=== PATIENT | female | born 1975 | race Caucasian/White ===

== ENCOUNTER 2016-09-19 12:17 | Emergency (ER) | payer OTHER ==
[~2016-09-19 12:17] MED LIST: ACET-704 PO; ALBU8.5H3 INH; CEPH-263 PO; CLON1TAB PO; ESOM40CA PO; FLUO40CA9 PO; HYDR-971 PO; MIRT15TA PO; POTA10CA PO; PRED50TA PO; PROM25AM6 IJ; PROM25TA10 PO; WARF5TAB7 PO
[2016-09-19] MEDS ORDERED: IV NORMAL SALINE 1,000ML 1,000 ML IV ONE (13:00)
[2016-09-19] MEDS ORDERED: ONDANSETRON PF 4 MG/2 ML VIAL. IV ONE (13:00)
[2016-09-19] MEDS ORDERED: FENTANYL PF 100 MCG/2 ML VIAL. IV ONE (13:00)
[2016-09-19] MEDS ORDERED: IOHEXOL 300 MG/ML 75 ML VIAL. IV ONE (13:00)
[2016-09-19 13:10] LABS: HEMOGLOBIN ISTAT 11.9 gm/dL; POTASSIUM ISTAT 3.6 mmol/L (3.5-5.0)
[2016-09-19 13:26] LABS: ALBUMIN 3.6 g/dL (3.4-5.0); DIRECT BILIRUBIN 0.1 mg/dL (0.0-0.2); TOTAL BILIRUBIN 0.2 mg/dL (0.2-1.0); TOTAL PROTEIN 7.6 g/dL (6.4-8.2)
--- NOTE | 2016-09-19 13:29 | RAD ---
CT of the abdomen and pelvis with contrast, 09/19/2016: History: Right-sided pain, worsening diarrhea Multidetector CT imaging was performed following an IV bolus injection of iodinated contrast material. No hepatic abnormality is detected. The gallbladder is somewhat contracted. No dense gallstones are seen. No pancreatic abnormality is detected. The spleen is of normal size. No renal abnormality is identified. The abdominal aorta is of normal caliber. No abdominal or pelvic adenopathy is seen. The uterus is unremarkable. Several small cysts are present in the left ovary. Pelvic surgical clips are probably secondary to a previous tubal ligation. The bowel loops are not dilated. A portion of the appendix is visualized and it is unremarkable. No pericecal inflammatory process is seen. There appears to be a small hiatal hernia. No free fluid or free air is evident in the abdomen or pelvis. IMPRESSION: No acute abdominal or pelvic abnormality is detected. PQRS Compliance Statement: One or more of the following individualized dose reduction techniques were utilized for this examination: 1. Automated exposure control 2. Adjustment of the mA and/or kV according to patient size 3. Use of iterative reconstruction technique
[2016-09-19 13:39] LABS: BILIRUBIN,URINE NEG (NEG); CLARITY,URINE CLEAR; COLOR,URINE YELLOW; GLUCOSE,URINE NEG (NEG); NITRITE,URINE NEG (NEG); UROBILINOGEN,URINE 0.2 mg/dL (0.2 mg/dL)
[2016-09-19 13:40] LABS: BACTERIA,URINE 0 /HPF (0-FEW); SQUAMOUS EPITHELIAL CELL,UR OCC /LPF; WBC,URINE 0 /HPF (0-4)
--- NOTE | 2016-09-19 13:46 | ED.ADGEN ---
Past History Past Medical History: Depression, GERD, Other Past Surgical History: , Tonsillectomy, Other Alcohol Use: None Drug Use: None Adult General Chief Complaint Chief Complaint abdominal pain HPI HPI Patient is a 40 year old female who presents with R side abdominal pain. Pt's had diarrhea 4 times today, watery in nature, reports mild nausea but no vomiting. Denies fevers. Pain started this morning as "light" pain but then intensified throughout the day and became more sharp. It worsens with movement , twisting, bending. Improves with standing and laying flat. Tubal ligation but denies other abdominal surgeries. Denies dysuria or increased urinary frequency. Review of Systems Review of Systems Constitutional: Denies fever or chills [] Eyes: Denies change in visual acuity, redness, or eye pain [] HENT: Denies nasal congestion or sore throat [] Respiratory: Denies cough or shortness of breath [] Cardiovascular: denies chest pain GI: per hpi : Denies dysuria or hematuria [] Musculoskeletal: Denies back pain or joint pain [] Integument: Denies rash or skin lesions [] Neurologic: Denies headache, focal weakness or sensory changes [] Current Medications Current Medications Current Medications Medications (Trade) Dose Ordered Sig/Jerrod Start Time Stop Time Status Last Admin Dose Admin Diazepam (Valium) 5 mg 1X ONCE 09/19/16 14:00 09/19/16 14:01 DC 09/19/16 13:56 5 MG Fentanyl Citrate (Fentanyl 2ml Vial) 50 mcg 1X ONCE 09/19/16 13:00 09/19/16 13:01 DC 09/19/16 13:26 50 MCG Iohexol (Omnipaque 300 Mg/ml) 75 ml 1X ONCE 09/19/16 13:00 09/19/16 13:01 DC 09/19/16 13:11 75 ML Ketorolac Tromethamine (Toradol) 30 mg 1X ONCE 09/19/16 14:00 09/19/16 14:01 DC 09/19/16 13:57 30 MG Ondansetron HCl 4 mg 4 mg 1X ONCE 09/19/16 13:00 09/19/16 13:01 DC 09/19/16 13:24 4 MG Sodium Chloride (Iv Sodium Chloride 0.9% 1,000ml) 1,000 ml @ 1,000 mls/hr 1X ONCE 09/19/16 13:00 09/19/16 13:59 DC 09/19/16 13:23 1,000 MLS/HR Allergies Allergies Allergies Coded Allergies Type Severity Reaction Last Updated Verified doxycycline Allergy Unknown VOMITING 06/23/15 No Physical Exam Physical Exam Constitutional: Well developed, well nourished, holding her right side attempting not to bend or sit, non-toxic appearance. smiling HENT: Normocephalic, atraumatic, bilateral external ears normal, oropharynx moist, no oral exudates, nose normal. [] Eyes: PERRLA, EOMI, conjunctiva normal, no discharge. [] Neck: Normal range of motion, no tenderness, supple, no stridor. [] Cardiovascular:Heart rate regular with regular rhythm, no murmur [] Lungs & Thorax: Bilateral breath sounds clear to auscultation , no wheeze, crackles or rhonchi Abdomen: Bowel sounds normal, soft, generalized ttp along R abdomen without bruising or ecchymosis, neg mcburneys, neg murphys Skin: Warm, dry, no erythema, no rash. [] Back: No tenderness, no CVA tenderness. [] Extremities: No tenderness, no cyanosis, no clubbing, ROM intact, no edema. [] Neurologic: Alert and oriented X 3, normal motor function, normal sensory function, no focal deficits noted. [] Psychologic: Affect normal, judgement normal, mood normal. [] Current Patient Data Vital Signs Vital Signs Date Time Temp Pulse Resp B/P Pulse Ox O2 Delivery O2 Flow Rate FiO2 09/19/16 14:01 69 16 148/81 97 Room Air 09/19/16 12:17 98.1 Lab Results Laboratory Tests Test 09/19/16 12:48 09/19/16 12:58 09/19/16 13:06 09/19/16 13:07 Urine Collection Type Unknown Urine Color Yellow Urine Clarity Clear Urine pH 6.0 Urine Specific [place] 1.010 Urine Protein Neg (NEG-TRACE) Urine Glucose (UA) Negmg/dL (NEG) Urine Ketones (Stick) Negmg/dL (NEG) Urine Blood Trace (NEG) Urine Nitrite Neg (NEG) Urine Bilirubin Neg (NEG) Urine Urobilinogen Dipstick 0.2mg/dL (0.2 mg/dL) Urine Leukocyte Esterase Neg (NEG) Urine RBC 1-2/HPF (0-2) Urine WBC 0/HPF (0-4) Urine Squamous Epithelial Cells Occ/LPF Urine Bacteria 0/HPF (0-FEW) Prothrombin Time 28.5SEC (9.4-11.4) H Prothrombin Time INR 2.8 (0.9-1.1) H PTT 34SEC (23-33) H Total Bilirubin 0.2mg/dL (0.2-1.0) Direct Bilirubin 0.1mg/dL (0.0-0.2) Aspartate Amino Transferase (AST) 26U/L (15-37) Alanine Aminotransferase (ALT) 28U/L (14-59) Alkaline Phosphatase 90U/L (46-116) Total Protein 7.6g/dL (6.4-8.2) Albumin 3.6g/dL (3.4-5.0) Lipase 163U/L (73-393) POC Urine HCG, Qualitative hcg negative (Negative) POC Hemoglobin 11.9gm/dL POC Hematocrit 35% POC Sodium 141mmol/L (135-145) POC Potassium 3.6mmol/L (3.5-5.0) POC Chloride 106mmol/L (98-110) POC Total CO2 22mmol/L (23-32) L Anion Gap 18mmol/L (6-14) H POC Blood Urea Nitrogen 10mg/dL (8-26) POC Creatinine 0.6mg/dL (0.5-1.4) Glucose Level 120mg/dL (60-99) H POC Ionized Calcium (Дмитрий) 1.16mmol/L (1.13-1.32) EKG EKG [] Radiology/Procedures Radiology/Procedures CT abd/pelvis: IMPRESSION: No acute abdominal or pelvic abnormality is detected. Course & Med Decision Making Course & Med Decision Making Pertinent Labs and Imaging studies reviewed. (See chart for details) Pt given IV fentanyl, zofran and NS bolus. Pain not relieved, labs and CT unremarkable. Pt given IV Torodol and valium, and pt's pain significantly resolved. Explained results and strict return precautions. Likely abdominal wall pain, could be related to diarrhea. No free fluid on CT. Pt dc'd with RX for norco and flexeril. Final Impression Final Impression abdominal pain diarrhea Problems: Dragon Disclaimer Dragon Disclaimer This electronic medical record was generated, in whole or in part, using a voice recognition dictation system. EBONY RENDON MD Sep 19, 2016 13:46
[2016-09-19] MEDS ORDERED: KETOROLAC 30 MG/ML VIAL. IV ONE (14:00)
[2016-09-19] MEDS ORDERED: DIAZEPAM 10 MG/2 ML DISP.SYRIN. IV ONE (14:00)
[2016-09-19] MEDS ORDERED: HYDR-971 PO (14:13)
[2016-09-19] MEDS ORDERED: IBUP600T16 PO (14:13)
[2016-09-19] MEDS ORDERED: CYCL5TAB PO (14:13)
[2016-09-19 14:20] VITALS: BP 138/81
== END 2016-09-19 14:20 | disposition home or self-care (01) ==
LOC: ER 12:17
DX: R10.9 Unspecified abdominal pain (principal); R19.7 Diarrhea, unspecified; R11.0 Nausea; K21.9 Gastro-esophageal reflux disease without esophagitis; F32.9 Major depressive disorder, single episode, unspecified; Z88.1 Allergy status to other antibiotic agents
CPT/HCPCS: 36415; 74177; 80047; 80076; 81001; 83690; 84703; 85610; 85730; 96361; 96374; 96375; 99285; J1885; J2405; J3010; Q9967; 81025; J7030

== ENCOUNTER 2017-03-19 17:42 | Emergency (ER) | payer OTHER ==
[~2017-03-19 17:42] MED LIST changes: -ALBU8.5H3 INH; +ALBU8.5H8 INH; +CYCL5TAB PO; +IBUP600T16 PO
[2017-03-19 19:00] LABS: BASO % 1 % (0-3); EOS # 0.2 x10^3/uL (0.0-0.7); EOS % 3 % (0-3); HEMATOCRIT 35.2 % (36.0-47.0); HEMOGLOBIN 12.6 g/dL (12.0-15.5); LYMPH # 2.6 x10^3/uL (1.0-4.8); LYMPH % 35 % (24-48); MEAN CORPUSCULAR HEMOGLOBIN 31 pg (25-35); MEAN CORPUSCULAR HGB CONC 36 g/dL (31-37); MEAN CORPUSCULAR VOLUME 87 fL (79-100); MONO # 0.5 x10^3/uL (0.0-1.1); MONO % 7 % (0-9); NEUT # 4.1 x10^3uL (1.8-7.7); NEUT % 55 % (31-73); PLATELET COUNT 375 x10^3/uL (140-400); RED BLOOD COUNT 4.04 x10^6/uL (3.50-5.40); RED CELL DISTRIBUTION WIDTH 14.3 % (11.5-14.5); WHITE BLOOD COUNT 7.5 x10^3/uL (4.0-11.0)
[2017-03-19] MEDS ORDERED: ONDANSETRON PF 4 MG/2 ML VIAL. IV ONE ×2 (19:00→20:45)
[2017-03-19 19:07] LABS: ALBUMIN 3.7 g/dL (3.4-5.0); ALBUMIN/GLOBULIN RATIO 1.1 (1.0-1.7); CALCIUM 8.5 mg/dL (8.5-10.1); GFR 61.4; POTASSIUM 3.4 mmol/L (3.5-5.1); TOTAL BILIRUBIN 0.2 mg/dL (0.2-1.0); TOTAL PROTEIN 7.1 g/dL (6.4-8.2)
[2017-03-19] MEDS ORDERED: IOHEXOL 300 MG/ML 75 ML VIAL. IV ONE (20:45)
--- NOTE | 2017-03-19 21:30 | RAD ---
CT abdomen and pelvis with contrast History: Right-sided abdominal pain, right inguinal hernia repair 02/26/2017 Technique: After the administration of intravenous contrast, CT imaging was performed of the abdomen and pelvis. No oral contrast was given as per request. Multiplanar images are reviewed. Exposure: One or more of the following individualized dose reduction techniques were utilized for this examination: 1. Automated exposure control 2. Adjustment of the mA and/or kV according to patient size 3. Use of iterative reconstruction technique. Contrast: 75 cc Omnipaque 300 Comparison: September 19, 2016 Findings: There is no significant abnormality of the visualized lung bases. There is again small hiatal hernia. There is no significant abnormality of the liver, spleen, pancreas, adrenal glands. Both kidneys enhance without hydronephrosis. Gallbladder is present without obvious intraluminal abnormality by CT. Accurate evaluation of bowel is limited without oral contrast. There is no significant inflammatory change adjacent to the bowel. There is no evidence of bowel obstruction, free fluid, or free air. There again has been bilateral tubal ligation. There is nonspecific fluid collection superficial to the right inguinal canal, no recurrent hernia identified. Fluid collection measures approximately 6.3 cm transverse by 1.7 cm AP by 3.8 cm cc, internal density measurements 17 Hounsfield units. Appendix is not clearly identified if still present. Impression: 1. There is a nonspecific fluid collection superficial to the right inguinal canal of uncertain sterility, could be due to seroma or liquefied hematoma unless clinical suspicion for abscess. No recurrent hernia is demonstrated in this region. 2. There is a small hiatal hernia. Electronically signed by: Franco Babb MD (03/19/2017 9:27 PM) [facility]
[2017-03-19 22:03] VITALS: BP 132/81
[2017-03-19] MEDS ORDERED: HYDROcodone/APAP 5/325MG 1 TAB TABLET PO ONE (22:30)
--- NOTE | 2017-03-20 04:38 | ED.ADGEN ---
Past History Past Medical History: Depression, GERD, Other Past Surgical History: , Tonsillectomy, Other Alcohol Use: None Drug Use: None Adult General Chief Complaint Chief Complaint Periumbilical pain HPI HPI Patient is a or-year-old female with Street of periumbilical hernia repair 10 months ago and right inguinal area repair 3 weeks ago presents with acute onset sharp, right periumbilical pain while seated. Pain is described as moderate severe worse with palpation and movement. Patient denies twisting her lifting proceeding pain episode. Denies nausea vomiting, diarrhea. No palpable normal wall defect or prolapse turning on exam. Fever chills or sweats. No other symptoms or complaints.[] Review of Systems Review of Systems Review symptoms as per history of present illness. All other review symptoms are negative.[] Current Medications Current Medications Current Medications Medications (Trade) Dose Ordered Sig/Jerrod Start Time Stop Time Status Last Admin Dose Admin Acetaminophen/ Hydrocodone Bitart (Lortab 5/325) 1 tab 1X ONCE 03/19/17 22:30 03/19/17 22:30 DC 03/19/17 22:20 1 TAB Fentanyl Citrate (Fentanyl 2ml Vial) 50 mcg 1X ONCE 03/19/17 20:45 03/19/17 20:46 DC 03/19/17 20:45 50 MCG Iohexol (Omnipaque 300 Mg/ml) 75 ml 1X ONCE 03/19/17 20:45 03/19/17 20:46 DC 03/19/17 21:07 75 ML Ondansetron HCl (Zofran) 4 mg 1X ONCE 03/19/17 20:45 03/19/17 20:46 DC 03/19/17 20:45 4 MG Allergies Allergies Allergies Coded Allergies Type Severity Reaction Last Updated Verified doxycycline Allergy Unknown VOMITING 06/23/15 No Physical Exam Physical Exam Constitutional: Well developed, well nourished, moderate distress secondary to pain. [] HENT: Normocephalic, atraumatic, bilateral external ears normal, oropharynx moist, no oral exudates, nose normal. [] Eyes: PERRLA, EOMI, conjunctiva normal, no discharge. [] Neck: Normal range of motion, no tenderness, supple, no stridor. [] Cardiovascular:Heart rate regular rhythm, no murmur [] Lungs & Thorax: Bilateral breath sounds clear to auscultation [] Abdomen: Bowel sounds normal, soft, umbilical pain, tenderness, no palpable masses or hernia defects. [] Skin: Warm, dry, no erythema, no rash. [] Back: No tenderness, no CVA tenderness. [] Extremities: No tenderness, no cyanosis, no clubbing, ROM intact, no edema. [] Neurologic: Alert and oriented X 3, normal motor function, normal sensory function, no focal deficits noted. [] Psychologic: Affect normal, judgement normal, mood normal. [] Current Patient Data Vital Signs Vital Signs Date Time Temp Pulse Resp B/P (MAP) Pulse Ox O2 Delivery O2 Flow Rate FiO2 03/19/17 22:03 87 16 132/81 (98) 97 Room Air 03/19/17 18:21 98.4 Lab Results Laboratory Tests Test 03/19/17 18:15 03/19/17 20:23 White Blood Count 7.5 x10^3/uL (4.0-11.0) Red Blood Count 4.04 x10^6/uL (3.50-5.40) Hemoglobin 12.6 g/dL (12.0-15.5) Hematocrit 35.2 % (36.0-47.0) L Mean Corpuscular Volume 87 fL (79-100) Mean Corpuscular Hemoglobin 31 pg (25-35) Mean Corpuscular Hemoglobin Concent 36 g/dL (31-37) Red Cell Distribution Width 14.3 % (11.5-14.5) Platelet Count 375 x10^3/uL (140-400) Neutrophils (%) (Auto) 55 % (31-73) Lymphocytes (%) (Auto) 35 % (24-48) Monocytes (%) (Auto) 7 % (0-9) Eosinophils (%) (Auto) 3 % (0-3) Basophils (%) (Auto) 1 % (0-3) Neutrophils # (Auto) 4.1 x10^3uL (1.8-7.7) Lymphocytes # (Auto) 2.6 x10^3/uL (1.0-4.8) Monocytes # (Auto) 0.5 x10^3/uL (0.0-1.1) Eosinophils # (Auto) 0.2 x10^3/uL (0.0-0.7) Basophils # (Auto) 0.0 x10^3/uL (0.0-0.2) Sodium Level 140 mmol/L (136-145) Potassium Level 3.4 mmol/L (3.5-5.1) L Chloride Level 103 mmol/L (98-107) Carbon Dioxide Level 27 mmol/L (21-32) Anion Gap 10 (6-14) Blood Urea Nitrogen 11 mg/dL (7-20) Creatinine 1.0 mg/dL (0.6-1.0) Estimated GFR (Cockcroft-Gault) 61.4 BUN/Creatinine Ratio 11 (6-20) Glucose Level 140 mg/dL (70-99) H Calcium Level 8.5 mg/dL (8.5-10.1) Total Bilirubin 0.2 mg/dL (0.2-1.0) Aspartate Amino Transferase (AST) 13 U/L (15-37) L Alanine Aminotransferase (ALT) 25 U/L (14-59) Alkaline Phosphatase 110 U/L (46-116) Total Protein 7.1 g/dL (6.4-8.2) Albumin 3.7 g/dL (3.4-5.0) Albumin/Globulin Ratio 1.1 (1.0-1.7) Lipase 131 U/L (73-393) POC Urine HCG, Qualitative hcg negative (Negative) EKG EKG [] Radiology/Procedures Radiology/Procedures [CT abdomen pelvis: Remnants of inguinal hernias seroma, no acute disease per radiology report] Course & Med Decision Making Course & Med Decision Making Pertinent Labs and Imaging studies reviewed. (See chart for details) [Pain Improved with treatment. No acute findings on CT. Suspect patient tore internal scar tissue from previous hernia repair. Recommend supportive care with outpatient general surgical follow-up. Return precautions reviewed.] Final Impression Final Impression [1. Abdominal pain] Problems: Dragon Disclaimer Dragon Disclaimer This electronic medical record was generated, in whole or in part, using a voice recognition dictation system. MARIE HATCH DO Mar 20, 2017 04:38
== END 2017-03-19 22:28 | disposition home or self-care (01) ==
LOC: ER 17:42
DX: R10.13 Epigastric pain (principal); R50.9 Fever, unspecified; K21.9 Gastro-esophageal reflux disease without esophagitis; K44.9 Diaphragmatic hernia without obstruction or gangrene; Z98.890 Other specified postprocedural states; Z88.1 Allergy status to other antibiotic agents
CPT/HCPCS: 36415; 74177; 80053; 81025; 83690; 85025; 96374; 96375; 96376; 99285; J2405; J3010; Q9967

== ENCOUNTER 2017-07-02 09:43 | Emergency (ER) | payer OTHER ==
[~2017-07-02] VITALS: Ht 154.9 cm; Wt 78.5 kg
[2017-07-02] MEDS ORDERED: IV NORMAL SALINE 1,000ML 1,000 ML IV ONE (10:15)
[2017-07-02] MEDS ORDERED: MORPHINE SULFATE 4 MG/ML DISP.SYRIN. IV ONE (10:15)
[2017-07-02] MEDS ORDERED: ONDANSETRON PF 4 MG/2 ML VIAL. IV ONE (10:15)
[2017-07-02] MEDS ORDERED: IOHEXOL 300 MG/ML 75 ML VIAL. IV ONE (10:30)
[2017-07-02 10:38] LABS: BASO # 0.1 x10^3/uL (0.0-0.2); BASO % 1 % (0-3); EOS # 0.1 x10^3/uL (0.0-0.7); EOS % 1 % (0-3); HEMATOCRIT 33.8 % (36.0-47.0); HEMOGLOBIN 11.7 g/dL (12.0-15.5); LYMPH # 1.4 x10^3/uL (1.0-4.8); LYMPH % 15 % (24-48); MEAN CORPUSCULAR HEMOGLOBIN 30 pg (25-35); MEAN CORPUSCULAR HGB CONC 35 g/dL (31-37); MEAN CORPUSCULAR VOLUME 87 fL (79-100); MONO # 0.4 x10^3/uL (0.0-1.1); MONO % 4 % (0-9); NEUT # 7.6 x10^3uL (1.8-7.7); NEUT % 79 % (31-73); PLATELET COUNT 353 x10^3/uL (140-400); RED BLOOD COUNT 3.91 x10^6/uL (3.50-5.40); RED CELL DISTRIBUTION WIDTH 14.2 % (11.5-14.5); WHITE BLOOD COUNT 9.6 x10^3/uL (4.0-11.0)
--- NOTE | 2017-07-02 10:44 | PHYS DOC ---
Past History Past Medical History: Depression, GERD, Other Past Surgical History: , Tonsillectomy, Other Alcohol Use: None Drug Use: None Adult General Chief Complaint Chief Complaint: NAUSEA/VOMITING/[facility] HPI Patient is a 41-year-old female presenting to the emergency department for evaluation of nausea diarrhea hematuria right upper quadrant abdominal pain. Patient states that she has been feeling sick since yesterday and she was at work today and felt dizzy and lightheaded and certainly having the pain and hematuria and was sent to the emergency department for further evaluation. Patient says that she has had uterine ablation but still has her gallbladder and appendix. She takes Coumadin for factor V Leiden. She denies being on antibiotics recently or foreign travel. No fevers chills vomiting dysuria or abnormal vaginal bleeding or vaginal discharge. She is in no obvious distress with normal vital signs. Review of Systems Review of Systems Constitutional: Denies fever or chills [] HENT: Denies nasal congestion or sore throat [] Respiratory: + cough, shortness of breath [] Cardiovascular: No additional information not addressed in HPI [] GI: + abdominal pain, nausea. No vomiting, bloody stools. + diarrhea [] : Denies dysuria. + hematuria [] Musculoskeletal: Denies back pain or joint pain [] Integument: Denies rash or skin lesions [] Neurologic: Denies headache, focal weakness or sensory changes [] All other systems were reviewed and found to be within normal limits, except as documented in this note. Current Medications Current Medications Current Medications Medications (Trade) Dose Ordered Sig/Jerrod Start Time Stop Time Status Last Admin Dose Admin Iohexol (Omnipaque 300 Mg/ml) 75 ml 1X ONCE 07/02/17 10:30 07/02/17 10:31 DC Morphine Sulfate (Morphine 4mg Syringe) 4 mg 1X ONCE 07/02/17 10:15 07/02/17 10:16 DC Ondansetron HCl (Zofran) 8 mg 1X ONCE 07/02/17 10:15 07/02/17 10:16 DC Sodium Chloride 1,000 ml @ 1,000 mls/hr 1X ONCE 07/02/17 10:15 07/02/17 11:14 07/02/17 10:39 1,000 MLS/HR Allergies Allergies Allergies Coded Allergies Type Severity Reaction Last Updated Verified doxycycline Allergy Unknown VOMITING 06/23/15 No Physical Exam Physical Exam Constitutional: Well developed, well nourished, no acute distress, non-toxic appearance. [] HENT: Normocephalic, atraumatic, bilateral external ears normal, oropharynx moist, no oral exudates, nose normal. [] Eyes: PERRLA, EOMI, conjunctiva normal, no discharge. [] Neck: Normal range of motion, no tenderness, supple, no stridor. [] Cardiovascular:Heart rate regular rhythm, no murmur [] Lungs & Thorax: Bilateral breath sounds clear to auscultation [] Abdomen: Bowel sounds normal, soft, positive right upper quadrant tenderness, no rebound or guarding, no masses, no pulsatile masses. [] Skin: Warm, dry, no erythema, no rash. [] Back: No tenderness, no CVA tenderness. [] Extremities: No tenderness, no cyanosis, no clubbing, ROM intact, no edema. [] Neurologic: Alert and oriented X 3, normal motor function, normal sensory function, no focal deficits noted. [] Current Patient Data Vital Signs Vital Signs Date Time Temp Pulse Resp B/P (MAP) Pulse Ox O2 Delivery O2 Flow Rate FiO2 07/02/17 09:57 98.4 85 18 100 Room Air Lab Results Laboratory Tests Test 07/02/17 10:20 White Blood Count 9.6 x10^3/uL (4.0-11.0) Red Blood Count 3.91 x10^6/uL (3.50-5.40) Hemoglobin 11.7 g/dL (12.0-15.5) L Hematocrit 33.8 % (36.0-47.0) L Mean Corpuscular Volume 87 fL (79-100) Mean Corpuscular Hemoglobin 30 pg (25-35) Mean Corpuscular Hemoglobin Concent 35 g/dL (31-37) Red Cell Distribution Width 14.2 % (11.5-14.5) Platelet Count 353 x10^3/uL (140-400) Neutrophils (%) (Auto) 79 % (31-73) H Lymphocytes (%) (Auto) 15 % (24-48) L Monocytes (%) (Auto) 4 % (0-9) Eosinophils (%) (Auto) 1 % (0-3) Basophils (%) (Auto) 1 % (0-3) Neutrophils # (Auto) 7.6 x10^3uL (1.8-7.7) Lymphocytes # (Auto) 1.4 x10^3/uL (1.0-4.8) Monocytes # (Auto) 0.4 x10^3/uL (0.0-1.1) Eosinophils # (Auto) 0.1 x10^3/uL (0.0-0.7) Basophils # (Auto) 0.1 x10^3/uL (0.0-0.2) EKG EKG [] Radiology/Procedures Radiology/Procedures INDICATION: Right flank pain COMPARISON: 03/19/2017 TECHNIQUE: Axial CT images were obtained through the abdomen and pelvis with intravenous contrast. Coronal reformations were processed. FINDINGS: Abdominal aorta is not aneurysmal. Within the right groin there is soft tissue thickening within the subcutaneous soft tissues in the region of patient's previously identified fluid. The fluid component appears to have resolved. No intrahepatic bile duct dilation. No peripancreatic edema. Spleen unremarkable. No left-sided hydronephrosis. Urinary bladder is partially distended at time of exam. Clips in bilateral adnexa. No right-sided hydronephrosis. No periappendiceal inflammation. Degenerative changes spine IMPRESSION: 1. No hydronephrosis. 2. No evidence of bowel obstruction or appendicitis. 3. In the right groin there is some soft tissue density material seen in the region of previously identified fluid. Could be secondary to a region of scarring if the patient has had surgery to this region. Neoplastic causes would be less likely unless the patient has a known history of neoplasm. A small amount of complex fluid within the region could also have this appearance but the previously identified simple appearing fluid collection is no longer seen. PQRS Compliance Statement: One or more of the following individualized dose reduction techniques were utilized for this examination: 1. Automated exposure control 2. Adjustment of the mA and/or kV according to patient size 3. Use of iterative reconstruction technique DICTATED AND SIGNED BY: LAURA DRISCOLL MD DATE: 07/02/17 1115 Course & Med Decision Making Course & Med Decision Making Patient likely has viral illness that may be altering her INR level and causing hematuria so we'll check labs CT for surgical process treat symptoms and reassess. Patient has right upper quadrant pain on exam that is improved after treatment in the emergency department. Her CT did not show any acute process in her tract and her labs are unremarkable. 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 I told her to stop her Coumadin for now until the hematuria stops and to restart it the evening I wanted stops. She says her pain is controlled and she can tolerate fluids by mouth with no difficulty so she'll be discharged in stable condition told to follow with primary care provider within 2-3 days and come back to the ED with any new worsening pain fevers vomiting or other general concerns. Patient aware and agreeable with plan for discharge and verbalized understanding of the above instructions. Dragon Disclaimer Dragon Disclaimer This electronic medical record was generated, in whole or in part, using a voice recognition dictation system. Departure Departure: Impression: Primary Impression: Abdominal pain Additional Impressions: Nausea alone Diarrhea Hematuria Disposition: HOME, SELF-CARE Condition: STABLE Referrals: LANA BRANDT (PCP) Patient Instructions: Abdominal Pain (Nonspecific) Additional Instructions: DRINK PLENTY OF FLUIDS AND EAT A SOFT NON-IRRITATING DIET. FOLLOW WITH YOUR PRIMARY CARE PROVIDER LATER THIS WEEK AND COME BACK TO THE ED WITH WORSENING PAIN, FEVERS, VOMITING, OR OTHER GENERAL CONCERNS. THANK YOU! Scripts Ondansetron (ZOFRAN ODT) 4 Mg Tab.rapdis 1 TAB SL Q8HRS, #10 TAB Prov: WES GARCIA DO 07/02/17 Hydrocodone Bit/Acetaminophen (NORCO 5-325 TABLET) 1 Each Tablet 1 TAB PO PRN Q6HRS Y for PAIN, #14 TAB 0 Refills Prov: WES GARCIA DO 07/02/17 Problem Qualifiers Primary Impression: Abdominal pain Abdominal location: right upper quadrant Qualified Codes: R10.11 - Right upper quadrant pain WES GARCIA DO Jul 02, 2017 10:44
[2017-07-02 10:45] LABS: ALBUMIN 3.4 g/dL (3.4-5.0); ALBUMIN/GLOBULIN RATIO 0.9 (1.0-1.7); CREATININE 0.9 mg/dL (0.6-1.0); GFR 69.3; MAGNESIUM 1.8 mg/dL (1.8-2.4); POTASSIUM 3.5 mmol/L (3.5-5.1); TOTAL BILIRUBIN 0.1 mg/dL (0.2-1.0); TOTAL PROTEIN 7.3 g/dL (6.4-8.2)
[2017-07-02 11:05] LABS: BACTERIA,URINE FEW /HPF (0-FEW); BILIRUBIN,URINE NEG (NEG); CLARITY,URINE HAZY; COLOR,URINE YELLOW; GLUCOSE,URINE NEG (NEG); NITRITE,URINE NEG (NEG); SQUAMOUS EPITHELIAL CELL,UR MOD /LPF; UROBILINOGEN,URINE 0.2 mg/dL (0.2 mg/dL); WBC,URINE RARE /HPF (0-4)
--- NOTE | 2017-07-02 11:27 | RAD ---
INDICATION: Right flank pain COMPARISON: 03/19/2017 TECHNIQUE: Axial CT images were obtained through the abdomen and pelvis with intravenous contrast. Coronal reformations were processed. FINDINGS: Abdominal aorta is not aneurysmal. Within the right groin there is soft tissue thickening within the subcutaneous soft tissues in the region of patient's previously identified fluid. The fluid component appears to have resolved. No intrahepatic bile duct dilation. No peripancreatic edema. Spleen unremarkable. No left-sided hydronephrosis. Urinary bladder is partially distended at time of exam. Clips in bilateral adnexa. No right-sided hydronephrosis. No periappendiceal inflammation. Degenerative changes spine IMPRESSION: 1. No hydronephrosis. 2. No evidence of bowel obstruction or appendicitis. 3. In the right groin there is some soft tissue density material seen in the region of previously identified fluid. Could be secondary to a region of scarring if the patient has had surgery to this region. Neoplastic causes would be less likely unless the patient has a known history of neoplasm. A small amount of complex fluid within the region could also have this appearance but the previously identified simple appearing fluid collection is no longer seen. PQRS Compliance Statement: One or more of the following individualized dose reduction techniques were utilized for this examination: 1. Automated exposure control 2. Adjustment of the mA and/or kV according to patient size 3. Use of iterative reconstruction technique
[2017-07-02] MEDS ORDERED: KETOROLAC 15 MG/ML VIAL. IV ONE (12:30)
[2017-07-02] MEDS ORDERED: ONDA4TAB10 SL (13:34)
[2017-07-02] MEDS ORDERED: HYDR-971 PO (13:34)
[2017-07-02 18:47] VITALS: BP 140/78
== END 2017-07-02 18:48 | disposition home or self-care (01) ==
LOC: ER 09:43
DX: R10.11 Right upper quadrant pain (principal); R31.9 Hematuria, unspecified; R19.7 Diarrhea, unspecified; R11.0 Nausea; K21.9 Gastro-esophageal reflux disease without esophagitis; D68.51 Activated protein C resistance; Z98.890 Other specified postprocedural states; Z88.1 Allergy status to other antibiotic agents
CPT/HCPCS: 36415; 74177; 80053; 81001; 82550; 83735; 85025; 85610; 85730; 96361; 96374; 96375; 99285; J2270; J2405; J3010; Q9967; J7030

== ENCOUNTER → 2017-07-08 | Outpatient (CLI) | payer OTHER ==
[2017-07-02 18:47] VITALS: BP 140/78
[~2017-07-08] MED LIST changes: +ONDA4TAB10 SL
--- NOTE | 2017-07-08 16:33 | RAD ---
Right lower extremity venous duplex study 07/08/2017 Clinical History: Right leg pain.. Technique: Using a combination of real time ultrasound imaging and color-flow and pulse Doppler imaging techniques along with graded compression and augmentation, duplex evaluation of the deep venous system of the right lower extremity was performed. Multiple images were obtained. Findings: There is no sonographic evidence of deep venous thrombosis involving the visualized deep venous structures of the right lower extremity. Impression: Negative study.
== END | disposition home or self-care (01) ==
LOC: US 15:53
PROVIDERS: ATTEND Family Medicine
DX: R22.41 Localized swelling, mass and lump, right lower limb (principal); F17.200 Nicotine dependence, unspecified, uncomplicated; Z86.718 Personal history of other venous thrombosis and embolism
CPT/HCPCS: 93971

== ENCOUNTER 2017-10-04 09:11 | Emergency (ER) | payer OTHER ==
[~2017-10-04] VITALS: Ht 154.9 cm; Wt 78.9 kg
[~2017-10-04 09:11] MED LIST changes: +WARF-31 PO; -WARF5TAB7 PO
--- NOTE | 2017-10-04 09:23 | PHYS DOC ---
Past History Past Medical History: Depression, GERD, Other Past Surgical History: , Tonsillectomy, Other Alcohol Use: None Drug Use: None Adult General Chief Complaint Chief Complaint: FEVER HPI HPI Patient is a 41 year old female who presents with fever, diarrhea nausea and vomiting. She states 2 days ago she had a few loose stools and has not had a stool since then. Last night she developed abdominal discomfort in the epigastric area and has vomited all night long. She states she's on 110 times. She denies any blood in her stools or vomit. She states the pains made worse when she takes a big deep breath. She denies any chest pain or shortness of breath. She does have a 5 Leiden deficiency is on Coumadin. Review of Systems Review of Systems Constitutional: Denies fever or chills [] Eyes: Denies change in visual acuity, redness, or eye pain [] HENT: Denies nasal congestion or sore throat [] Respiratory: Denies cough or shortness of breath [] Cardiovascular: No additional information not addressed in HPI [] GI: Positive for abdominal pain, nausea, vomiting, Denies bloody stools or diarrhea [] : Denies dysuria or hematuria [] Musculoskeletal: Denies back pain or joint pain [] Integument: Denies rash or skin lesions [] Neurologic: Denies headache, focal weakness or sensory changes [] Endocrine: Denies polyuria or polydipsia [] All other systems were reviewed and found to be within normal limits, except as documented in this note. Allergies Allergies Allergies Coded Allergies Type Severity Reaction Last Updated Verified doxycycline Allergy Unknown VOMITING 06/23/15 No Physical Exam Physical Exam Constitutional: Well developed, well nourished, no acute distress, non-toxic appearance. [] HENT: Normocephalic, atraumatic, bilateral external ears normal, oropharynx moist, no oral exudates, nose normal. [] Eyes: PERRLA, EOMI, conjunctiva normal, no discharge. [] Neck: Normal range of motion, no tenderness, supple, no stridor. [] Cardiovascular:Heart rate regular rhythm, no murmur [] Lungs & Thorax: Bilateral breath sounds clear to auscultation [] Abdomen: Bowel sounds hyperactive soft, mild tender to palpation in the epigastric area, no rebound or guarding, no masses, no pulsatile masses. [] Skin: Warm, dry, no erythema, no rash. [] Back: No tenderness, no CVA tenderness. [] Extremities: No tenderness, no cyanosis, no clubbing, ROM intact, no edema. [] Neurologic: Alert and oriented X 3, normal motor function, normal sensory function, no focal deficits noted. [] Psychologic: Affect normal, judgement normal, mood normal. [] EKG EKG Sinus rhythm with rate 65 bpm without any concerning ST elevations or T-wave inversions, normal axis, QTC 465, as interpreted by me. Radiology/Procedures Radiology/Procedures [address] [address] IMAGING REPORT Signed PATIENT: TERI KAT ACCOUNT: [id number] : 1975 LOCATION: ER AGE: 41 SEX: F EXAM STATUS: REG ER ORD. PHYSICIAN: NOVA DOUGLAS MD REASON: abd pain PROCEDURE: CT ABD PELV W/ IV CONTRST ONLY CT ABD PELV W/ IV CONTRST ONLY Indication: EPIGASTRIC ABDOMINAL PAIN WITH NAUSEA/VOMITING TIMES 2 DAYS
75MLS OMNI [address] SENT Exposure: One or more of the following individualized dose reduction techniques were utilized for this examination: 1. Automated exposure control 2. Adjustment of the mA and/or kV according to patient size 3. Use of iterative reconstruction technique. Comparison: July 02, 2017 Contrast: Intravenous contrast. No oral contrast per request. Mild opacities in the right lung base suggestive tree-in-bud morphology. More of the lung bases included on today's study as required with prior. This could represent mild inflammatory or bronchial process or bronchiolitis. No consolidated infiltrate is seen. Liver upper limits normal in size, but unchanged. No focal lesion. Spleen unremarkable. No peripancreatic inflammatory change. No adrenal mass. Kidneys unremarkable. No calcified gallstone. No aortic aneurysm. No significant lymph node enlargement. No evidence of bowel obstruction. No evidence of acute colitis. The appendix appears normal. No ascites. Unopacified urinary bladder appears unremarkable. Implanted devices are seen in the right and left pelvis. There is some stranding within the right inguinal fat, appears similar as the prior study and may represent some scarring. There is some protrusion of colon into the right inguinal area but no overt hernia. No destructive bone lesion. Small benign-appearing lesion in the proximal right femur is unchanged IMPRESSION: 1. Mild opacities in the right lung base, suggesting mild inflammatory process or bronchiolitis. No dense lung consolidation. 2. Area of stranding in the right inguinal fat appears similar as prior study, may be scarring. 3. No acute findings in the abdomen or pelvis. 4. A loop of right colon does protrude towards the right inguinal canal, there is no overt herniation. Electronically signed by: Chris Arredondo MD (10/04/2017 11:44 AM) [facility] DICTATED AND SIGNED BY: CHRIS ARREDONDO MD DATE: 10/04/17 5761 CC: NOVA DOUGLAS MD; LANA BRANDT ~ [] [place] [address] IMAGING REPORT Signed PATIENT: TERI KAT ACCOUNT: [id number] : 1975 LOCATION: ER AGE: 41 SEX: F EXAM STATUS: REG ER ORD. PHYSICIAN: NOVA DOUGLAS MD REASON: epigastric pain PROCEDURE: ABDOMEN LTD ABDOMEN LTD History: Epigastric pain Comparison: None. Findings: Multiple sonographic images of the abdomen are submitted. No focal hepatic lesion is demonstrated. Right lobe liver measured 18.2 cm longitudinal. Gallbladder is present without intraluminal abnormality, wall thickening, pericholecystic fluid. There is segmental visualization of the inferior vena cava. Pancreas is not well-visualized due to bowel gas. Right kidney measured 10.1 x 4.7 x 4.2 cm, no hydronephrosis. No free fluid is demonstrated. Common bile duct is within normal limits at 0.4 cm. Impression: 1. No significant abnormality is demonstrated. Electronically signed by: Omar Duggan MD (10/04/2017 1:15 PM) [facility] DICTATED AND SIGNED BY: OMAR DUGGAN MD DATE: 10/04/17 1310 CC: NOVA DOUGLAS MD; LANA BRANDT ~ Impressions: Abdominal pain Bronchiolitis Course & Med Decision Making Course & Med Decision Making Pertinent Labs and Imaging studies reviewed. (See chart for details) [] Dragon Disclaimer Dragon Disclaimer This electronic medical record was generated, in whole or in part, using a voice recognition dictation system. Departure Departure: Impression: Primary Impression: Gastroenteritis Disposition: 01 HOME, SELF-CARE Condition: STABLE Referrals: LANA BRANDT (PCP) Patient Instructions: Viral Gastroenteritis Additional Instructions: The ultrasound and CT of her abdomen pelvis did not show any acute abnormality' s. You having small amount information the right base of your lung call bronchiolitis. You did have a fever earlier today and after he had Tylenol resolved. You will be discharged with Augmentin 875 mg twice a day for 10 days. If you develop high fevers, worsening discomfort, uncontrolled nausea vomiting or other concerns please return back to the ER. She'll follow up with her primary care physician within the next few days. Try to eat a simple diet over the next several days to help with your nausea. You can take Phenergan as instructed for nausea and as needed. Scripts Amoxicillin/Potassium Clav (AUGMENTIN 875-125 TABLET) 1 Each Tablet 1 TAB PO BID, #20 TAB Prov: NOVA DOUGLAS MD 10/04/17 NOVA DOUGLAS MD Oct 04, 2017 09:23
[2017-10-04] MEDS ORDERED: PROMETHAZINE 12.5 MG in IV NORMAL SALINE 50ML 50 ML IV PRN (10:00)
[2017-10-04] MEDS ORDERED: PROMETHAZINE 25 MG/ML VIAL IV ONE (10:00)
[2017-10-04] MEDS ORDERED: IV NORMAL SALINE 50ML 50 ML ONE (10:00)
[2017-10-04] MEDS ORDERED: IV NORMAL SALINE 1,000ML 1,000 ML IV ONE (10:00)
[2017-10-04 10:07] LABS: BASO % 1 % (0-3); EOS # 0.1 x10^3/uL (0.0-0.7); EOS % 1 % (0-3); HEMATOCRIT 33.7 % (36.0-47.0); HEMOGLOBIN 11.6 g/dL (12.0-15.5); LYMPH # 1.6 x10^3/uL (1.0-4.8); LYMPH % 18 % (24-48); MEAN CORPUSCULAR HEMOGLOBIN 30 pg (25-35); MEAN CORPUSCULAR HGB CONC 34 g/dL (31-37); MEAN CORPUSCULAR VOLUME 87 fL (79-100); MONO # 0.4 x10^3/uL (0.0-1.1); MONO % 4 % (0-9); NEUT % 77 % (31-73); PLATELET COUNT 313 x10^3/uL (140-400); RED BLOOD COUNT 3.88 x10^6/uL (3.50-5.40)
[2017-10-04 10:13] LABS: BILIRUBIN,URINE NEG (NEG); CLARITY,URINE HAZY; COLOR,URINE YELLOW; GLUCOSE,URINE NEG (NEG)
[2017-10-04 10:14] LABS: BACTERIA,URINE FEW /HPF (0-FEW); NITRITE,URINE NEG (NEG); RBC,URINE RARE /HPF (0-2); SQUAMOUS EPITHELIAL CELL,UR MANY /LPF; UROBILINOGEN,URINE 0.2 mg/dL (0.2 mg/dL)
[2017-10-04 10:16] LABS: PREG TEST PT QUAL NEGATIVE (NEG)
[2017-10-04 10:40] LABS: ALBUMIN 3.3 g/dL (3.4-5.0); CALCIUM 8.6 mg/dL (8.5-10.1); CREATININE 0.8 mg/dL (0.6-1.0); DIRECT BILIRUBIN 0.1 mg/dL (0.0-0.2); GFR 79.4; POTASSIUM 3.7 mmol/L (3.5-5.1); TOTAL BILIRUBIN 0.3 mg/dL (0.2-1.0)
[2017-10-04] MEDS ORDERED: IOHEXOL 300 MG/ML 75 ML VIAL. IV ONE (11:00)
--- NOTE | 2017-10-04 11:47 | RAD ---
CT ABD PELV W/ IV CONTRST ONLY Indication: EPIGASTRIC ABDOMINAL PAIN WITH NAUSEA/VOMITING TIMES 2 DAYS
75MLS OMNI [address] SENT Exposure: One or more of the following individualized dose reduction techniques were utilized for this examination: 1. Automated exposure control 2. Adjustment of the mA and/or kV according to patient size 3. Use of iterative reconstruction technique. Comparison: July 02, 2017 Contrast: Intravenous contrast. No oral contrast per request. Mild opacities in the right lung base suggestive tree-in-bud morphology. More of the lung bases included on today's study as required with prior. This could represent mild inflammatory or bronchial process or bronchiolitis. No consolidated infiltrate is seen. Liver upper limits normal in size, but unchanged. No focal lesion. Spleen unremarkable. No peripancreatic inflammatory change. No adrenal mass. Kidneys unremarkable. No calcified gallstone. No aortic aneurysm. No significant lymph node enlargement. No evidence of bowel obstruction. No evidence of acute colitis. The appendix appears normal. No ascites. Unopacified urinary bladder appears unremarkable. Implanted devices are seen in the right and left pelvis. There is some stranding within the right inguinal fat, appears similar as the prior study and may represent some scarring. There is some protrusion of colon into the right inguinal area but no overt hernia. No destructive bone lesion. Small benign-appearing lesion in the proximal right femur is unchanged IMPRESSION: 1. Mild opacities in the right lung base, suggesting mild inflammatory process or bronchiolitis. No dense lung consolidation. 2. Area of stranding in the right inguinal fat appears similar as prior study, may be scarring. 3. No acute findings in the abdomen or pelvis. 4. A loop of right colon does protrude towards the right inguinal canal, there is no overt herniation. Electronically signed by: Chris Arredondo MD (10/04/2017 11:44 AM) [facility]
[2017-10-04] MEDS ORDERED: LIDO:MAALOX 1:1 20 ML SINGLE DOSE. PO ONE (12:00)
--- NOTE | 2017-10-04 13:18 | RAD ---
ABDOMEN LTD History: Epigastric pain Comparison: None. Findings: Multiple sonographic images of the abdomen are submitted. No focal hepatic lesion is demonstrated. Right lobe liver measured 18.2 cm longitudinal. Gallbladder is present without intraluminal abnormality, wall thickening, pericholecystic fluid. There is segmental visualization of the inferior vena cava. Pancreas is not well-visualized due to bowel gas. Right kidney measured 10.1 x 4.7 x 4.2 cm, no hydronephrosis. No free fluid is demonstrated. Common bile duct is within normal limits at 0.4 cm. Impression: 1. No significant abnormality is demonstrated. Electronically signed by: Franco Babb MD (10/04/2017 1:15 PM) [facility]
--- NOTE | 2017-10-04 13:55 | EKG ---
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
[2017-10-04] MEDS ORDERED: AMOX1TAB61 PO (14:14)
[2017-10-04 14:45] VITALS: BP 140/77
== END 2017-10-04 14:45 | disposition home or self-care (01) ==
LOC: ER 09:11
DX: K52.9 Noninfective gastroenteritis and colitis, unspecified (principal); J21.9 Acute bronchiolitis, unspecified; K21.9 Gastro-esophageal reflux disease without esophagitis; F32.9 Major depressive disorder, single episode, unspecified; Z79.01 Long term (current) use of anticoagulants; Z88.1 Allergy status to other antibiotic agents
CPT/HCPCS: 36415; 74177; 76705; 80048; 80076; 81001; 82553; 83605; 83690; 84484; 84703; 85025; 85610; 85730; 87086; 93005; 96365; 96375; 96376; 99285; J2550; J3010; Q9967; J7030

== ENCOUNTER 2017-10-06 11:53 | Inpatient (IN) | payer OTHER ==
[~2017-10-06] VITALS: Ht 154.9 cm; Wt 82.1 kg
[~2017-10-06 11:53] MED LIST changes: +AMOX1TAB61 PO
--- NOTE | 2017-10-06 12:07 | PHYS DOC ---
Past History Past Medical History: Anxiety, Depression, GERD, Other Past Surgical History: , Tonsillectomy, Other Alcohol Use: None Drug Use: None Adult General Chief Complaint Chief Complaint: CHEST PAIN [facility] HPI Patient is a 41 year old female who presents with says her chest pain. She states it's started in her abdominal area couple days ago of which she was seen in the ER had an abdominal CT scan in the right upper abdominal ultrasound did not show any acute abnormality's. He did show some bronchiolitis of her lung and she was sent home on Augmentin. She started this medicine yesterday. She states that the pain is in her epigastric area doesn't radiate to her left shoulder. She states nothing makes the pain better or worse. She does feel short of breath with exertion. She states today she felt lightheaded when she is going down some steps and fell. She fell down 5-6 steps and landed on her knees. She does complain about the animal back discomfort after this and the thoracic area. She denies any headache or neck pain. She has factor V Leiden deficiency she states she is compliant with her Coumadin levels. She states she's never had an evaluation for cardiac abnormalities or stress test before. She does smoke cigarettes occasionally when she feels "stressed out". She states she has a family history of strokes. Review of Systems Review of Systems Constitutional: Denies fever or chills [] Eyes: Denies change in visual acuity, redness, or eye pain [] HENT: Denies nasal congestion or sore throat [] Respiratory: Denies cough or shortness of breath [] Cardiovascular: No additional information not addressed in HPI [] GI: Denies abdominal pain, nausea, vomiting, bloody stools or diarrhea [] : Denies dysuria or hematuria [] Musculoskeletal: Denies back pain or joint pain [] Integument: Denies rash or skin lesions [] Neurologic: Denies headache, focal weakness or sensory changes [] Endocrine: Denies polyuria or polydipsia [] All other systems were reviewed and found to be within normal limits, except as documented in this note. Allergies Allergies Allergies Coded Allergies Type Severity Reaction Last Updated Verified doxycycline Allergy Unknown VOMITING 06/23/15 No Physical Exam Physical Exam Constitutional: Well developed, well nourished, no acute distress, non-toxic appearance. [] HENT: Normocephalic, atraumatic, bilateral external ears normal, oropharynx moist, no oral exudates, nose normal. [] Eyes: PERRLA, EOMI, conjunctiva normal, no discharge. [] Neck: Normal range of motion, no tenderness, supple, no stridor. [] Cardiovascular:Heart rate regular rhythm, no murmur [] Lungs & Thorax: Bilateral breath sounds clear to auscultation mild tender palpation left sternal area and left off midline next to the scapula on her back no ecchymosis noted. Abdomen: Bowel sounds normal, soft, no tenderness, no masses, no pulsatile masses. [] Skin: Warm, dry, no erythema, no rash. [] Back: No tenderness, no CVA tenderness. [] Extremities: No tenderness, no cyanosis, no clubbing, ROM intact, no edema. [] Neurologic: Alert and oriented X 3, normal motor function, normal sensory function, no focal deficits noted. [] Psychologic: Affect normal, judgement normal, mood normal. [] EKG EKG EKG shows sinus rhythm 3 76 bpm without any concerning ST elevations, T-wave inversion noted in aVL, normal axis, QTC 466 ms, as interpreted by me. Radiology/Procedures Radiology/Procedures [address] [address] IMAGING REPORT Signed PATIENT: TERI KAT ACCOUNT: [id number] : 1975 LOCATION: ER AGE: 41 SEX: F EXAM STATUS: REG ER ORD. PHYSICIAN: NOVA DOUGLAS MD REASON: chest pain PROCEDURE: PORTABLE CHEST 1V Portable AP view CXR: Clinical indications: Chest pain for 2 days. Comparison: August 02, 2016. Findings: No acute lung infiltrate or pleural effusion or pulmonary edema or lung mass or pneumothorax is seen. The heart size, pulmonary vasculature, mediastinum and both cuco are stable. Impression: No acute radiographic abnormality is seen. DICTATED AND SIGNED BY: TILA HANNA MD DATE: 10/06/17 2432 CC: NOVA DOUGLAS MD; LANA BRANDT ~ [address] [address] IMAGING REPORT Signed PATIENT: TERI KAT ACCOUNT: [id number] : 1975 LOCATION: ER AGE: 41 SEX: F EXAM STATUS: REG ER ORD. PHYSICIAN: NOVA DOUGLAS MD REASON: trauma PROCEDURE: THORACIC SPINE 3V Three-view study of the thoracic spine Clinical indications: Thoracic back pain for one day after a fall. Findings: No compression fracture or discitis or osteolytic process is evident. IMPRESSION: No acute compression fracture. DICTATED AND SIGNED BY: TILA HANNA MD DATE: 10/06/17 1406 CC: NOVA DOUGLAS MD; LANA BRANDT ~ Impressions: Chest pain Factor V Leiden deficiency on Coumadin Tobacco abuse Course & Med Decision Making Course & Med Decision Making Pertinent Labs and Imaging studies reviewed. (See chart for details) EKG doesn't show any acute abnormality's. She is given a full dose aspirin. Initial labs do not show any abnormalities. Patient's being admitted to Dr. Chavez , stable condition at this time. Dragon Disclaimer Dragon Disclaimer This electronic medical record was generated, in whole or in part, using a voice recognition dictation system. Departure Departure: Impression: Primary Impression: Chest pain Disposition: ADMITTED INPATIENT Admitting Physician: Brian Chavez Condition: STABLE Referrals: LANA BRANDT (PCP) Problem Qualifiers Primary Impression: Chest pain Chest pain type: unspecified Qualified Codes: R07.9 - Chest pain, unspecified NOVA DOUGLAS MD Oct 06, 2017 12:07
[2017-10-06 12:38] LABS: BASO % 1 % (0-3); EOS # 0.1 x10^3/uL (0.0-0.7); EOS % 2 % (0-3); HEMATOCRIT 32.3 % (36.0-47.0); LYMPH # 1.6 x10^3/uL (1.0-4.8); LYMPH % 34 % (24-48); MEAN CORPUSCULAR HEMOGLOBIN 30 pg (25-35); MEAN CORPUSCULAR HGB CONC 34 g/dL (31-37); MEAN CORPUSCULAR VOLUME 87 fL (79-100); MONO # 0.3 x10^3/uL (0.0-1.1); MONO % 6 % (0-9); NEUT # 2.8 x10^3uL (1.8-7.7); NEUT % 57 % (31-73); PLATELET COUNT 322 x10^3/uL (140-400); RED BLOOD COUNT 3.73 x10^6/uL (3.50-5.40); WHITE BLOOD COUNT 4.8 x10^3/uL (4.0-11.0)
--- NOTE | 2017-10-06 12:57 | RAD ---
Portable AP view CXR: Clinical indications: Chest pain for 2 days. Comparison: August 02, 2016. Findings: No acute lung infiltrate or pleural effusion or pulmonary edema or lung mass or pneumothorax is seen. The heart size, pulmonary vasculature, mediastinum and both cuco are stable. Impression: No acute radiographic abnormality is seen.
[2017-10-06 13:14] LABS: ALBUMIN 3.1 g/dL (3.4-5.0); ALK PHOS 95 U/L (46-116); ALT (SGPT) 29 U/L (14-59); ANION GAP 10 (6-14); AST (SGOT) 19 U/L (15-37); BLOOD UREA NITROGEN 7 mg/dL (7-20); CALCIUM 8.2 mg/dL (8.5-10.1); CARBON DIOXIDE 26 mmol/L (21-32); CHLORIDE 107 mmol/L (98-107); CREATININE 0.7 mg/dL (0.6-1.0); DIRECT BILIRUBIN < 0.1 mg/dL (0.0-0.2); GFR 92.7; GLUCOSE 91 mg/dL (70-99); LIPASE 110 U/L (73-393); MAGNESIUM 1.9 mg/dL (1.8-2.4); POTASSIUM 3.6 mmol/L (3.5-5.1); SODIUM 143 mmol/L (136-145); TOTAL BILIRUBIN 0.2 mg/dL (0.2-1.0); TOTAL PROTEIN 6.6 g/dL (6.4-8.2)
--- NOTE | 2017-10-06 14:10 | RAD ---
Three-view study of the thoracic spine Clinical indications: Thoracic back pain for one day after a fall. Findings: No compression fracture or discitis or osteolytic process is evident. IMPRESSION: No acute compression fracture.
[2017-10-06] MEDS ORDERED: ASPIRIN 325 MG TABLET PO ONE (14:15)
[2017-10-06] MEDS ORDERED: ONDANSETRON PF 4 MG/2 ML VIAL. IV PRN (14:15)
[2017-10-06] MEDS ORDERED: NITROGLYCERIN SUBLINGUAL 0.4 MG BOTTLE OF 25. SL PRN (14:15)
[2017-10-06 14:18] LABS: BARBITURATES NEG (NEG); BENZODIAZEPINES NEG (NEG); CANNABINOIDS NEG (NEG); COCAINE NEG (NEG); METHADONE NEG (NEG); OPIATES NEG (NEG); PHENCYCLIDINE NEG (NEG)
[2017-10-06 14:19] LABS: AMPHETAMINE/METHAMPHETAMINE NEG (NEG)
[2017-10-06 14:25] LABS: BILIRUBIN,URINE NEG (NEG); CLARITY,URINE CLOUDY; COLOR,URINE YELLOW; GLUCOSE,URINE NEG (NEG)
[2017-10-06 14:26] LABS: BACTERIA,URINE FEW /HPF (0-FEW); NITRITE,URINE NEG (NEG); SQUAMOUS EPITHELIAL CELL,UR MOD /LPF; UROBILINOGEN,URINE 0.2 mg/dL (0.2 mg/dL); YEAST,URINE PRESENT /HPF
[2017-10-06 14:27] LABS: U PREG PATIENT NEGATIVE (NEG)
[2017-10-06] MEDS ORDERED: MORPHINE SULFATE 4 MG/ML DISP.SYRIN. ONE ×3 (15:41→21:51)
[2017-10-06 16:33] VITALS: BP 143/93
[2017-10-06] MEDS ORDERED: HYDR25TA PO (16:59)
[2017-10-06] MEDS ORDERED: WARF4TAB7 PO (16:59)
[2017-10-06] MEDS ORDERED: ATOR40TA PO (16:59)
[2017-10-06] MEDS ORDERED: PANT40TA3 PO (16:59)
--- NOTE | 2017-10-06 17:16 | NUR ---
Pharmacy Warfarin Dosing Note S:Pharmacy consulted to assist with anticoagulation therapy started 10/06/17 with target INR: 2 -3 O:TERI KAT is a 41 year old F with FACTOR V LEIDEN LABS: Last INR: 2.9 Last HGB: 11 Last HCT: 32.3 Last PLT: 322 Last dose of given on at Previous Regimen: 4MG DAILY HOME DOSE Vitamin K given: N Drug Interaction Changes: Same Interacting Drug Ongoing Drug Interactions: A:INR Within desired Range. Target Range for this patient is: 2 -3 P: Warfarin dose: 4 mg Today at 1700 Bridge Therapy: None Next INR due 10/08/47 @0600 Pharmacy anticoagulation service will continue to follow. [facility], 10/06/17 7548
--- NOTE | 2017-10-06 17:26 | NUR ---
The patient, TERI KAT, 41 y/o, F admitted by LEYDI YOUSIF MD, was given written information regarding hospital policies, unit procedures and contact persons. Patient admitted to room 120 and arrived from the ED at approx. 1555 via EMS. Patient accompanied on admission by her mother. Valuables were checked and left in room with patient. Vital signs assessed and patient oriented to the room.
[2017-10-06] MEDS: ATORVASTATIN CALCIUM 20 MG TABLET PO SCH (17:41)
[2017-10-06] MEDS: MIRTAZAPINE 15 MG TABLET PO SCH (17:41)
[2017-10-06] MEDS: hydrOXYzine HCL 25 MG TABLET PO SCH (17:41)
[2017-10-06] MEDS: PANTOPRAZOLE 40 MG TABLET. PO SCH (17:41)
[2017-10-06] MEDS: WARFARIN 4 MG TABLET. PO SCH (17:41)
[2017-10-06] MEDS: clonazePAM 1 MG TABLET PO SCH (17:41)
[2017-10-06] MEDS: MORPHINE SULFATE 2 MG/ML DISP.SYRIN. IV PRN ×2 (19:37→21:51)
[2017-10-06 19:40] VITALS: BP 145/90
[2017-10-06 22:04] VITALS: BP 119/67
[2017-10-07] MEDS ORDERED: MORPHINE SULFATE 4 MG/ML DISP.SYRIN. ONE (01:13)
[2017-10-07] MEDS: MORPHINE SULFATE 2 MG/ML DISP.SYRIN. IV PRN (01:15)
[2017-10-07 05:45] VITALS: BP 128/77
[2017-10-07 06:56] LABS: CALCIUM 8.3 mg/dL (8.5-10.1); CREATININE 0.7 mg/dL (0.6-1.0); GFR 92.7; POTASSIUM 3.8 mmol/L (3.5-5.1)
[2017-10-07 06:59] LABS: BASO % 1 % (0-3); EOS # 0.1 x10^3/uL (0.0-0.7); EOS % 2 % (0-3); HEMATOCRIT 29.4 % (36.0-47.0); HEMOGLOBIN 10.1 g/dL (12.0-15.5); LYMPH # 2.3 x10^3/uL (1.0-4.8); LYMPH % 43 % (24-48); MEAN CORPUSCULAR HEMOGLOBIN 30 pg (25-35); MEAN CORPUSCULAR HGB CONC 35 g/dL (31-37); MEAN CORPUSCULAR VOLUME 87 fL (79-100); MONO # 0.3 x10^3/uL (0.0-1.1); MONO % 5 % (0-9); NEUT # 2.6 x10^3uL (1.8-7.7); NEUT % 49 % (31-73); PLATELET COUNT 271 x10^3/uL (140-400); RED CELL DISTRIBUTION WIDTH 14.9 % (11.5-14.5); WHITE BLOOD COUNT 5.3 x10^3/uL (4.0-11.0)
[2017-10-07] MEDS ORDERED: AMOX1TAB61 PO (07:29)
[2017-10-07] MEDS ORDERED: ACETAMINOPHEN 325 MG TABLET PO PRN (07:30)
[2017-10-07] MEDS ORDERED: MORPHINE SULFATE 4 MG/ML DISP.SYRIN. IV PRN (09:30)
[2017-10-07 10:39] VITALS: BP 117/63
[2017-10-07] MEDS ORDERED: PROMETHAZINE 25 MG TABLET. PO PRN (11:30)
--- NOTE | 2017-10-07 13:41 | NUR ---
Pharmacy Warfarin Dosing Note S:Pharmacy consulted to assist with anticoagulation therapy started 10/06/17 with target INR: 2 -3 O:TERI KAT is a 41 year old F with FACTOR V LEIDEN LABS: Last INR: 3.1 Last HGB: 10.1 Last HCT: 29.4 Last PLT: 271 Last dose of 4 mg given on 10/06/17 at 1700 Previous Regimen: 4MG DAILY HOME DOSE Vitamin K given: N Drug Interaction Changes: Same Interacting Drug A: Her INR at 3.1 is only slightly above the target range of 2-3. Home dose was continued and we will recheck her INR one more time. P: Warfarin dose: Warfarin 4mg po today at 1600. Bridge Therapy: None Next INR due 10/08/17 Pharmacy anticoagulation service will continue to follow. GORGE CALDWELL RPH 10/07/17 8803
--- NOTE | 2017-10-07 14:05 | PDOC2 ---
CONSULT Date of Admission DATE: 10/07/17 TIME: 14:05 Reason for Consult: Chest pain Referring Physician: Dr. Trevino Chief Complaint Chest pain Source: Chart review, Patient Problem List Problems Medical Problems: (1) Chest pain Status: Acute History of Present Illness 41-year-old female presented with epigastric and retrosternal chest pain not related to exertion or food intake. She denied any orthopnea/PND, palpitations or syncope. Past Medical History Factor V Leyden deficiency Hyperlipidemia Anxiety/depression Gastroesophageal reflux disease Past Surgical History section Tonsillectomy Family History Negative for premature coronary disease Smoke: <1 pack per day ALCOHOL: none Drugs: None Current Medications Current Medications Ondansetron HCl (Zofran) 4 mg PRN Q4HRS PRN IV NAUSEA/VOMITING; Start 10/06/17 at 14:15; Stop 10/07/17 at 14:14 Morphine Sulfate (Morphine 2mg Syringe) 2 mg PRN Q2HR PRN IV PAIN Last administered on 10/07/17at 01:15; Start 10/06/17 at 14:15; Stop 10/07/17 at 09:16; Status DC Nitroglycerin (Nitrostat) 0.4 mg PRN Q5MIN PRN SL CHEST PAIN; Start 10/06/17 at 14:15; Stop 10/07/17 at 14:14 Aspirin (Owen Aspirin) 325 mg 1X ONCE PO ; Start 10/06/17 at 14:15; Stop at 14:17; Status DC Morphine Sulfate (Morphine 4mg Syringe) 4 mg STK-MED ONCE .ROUTE ; Start at 15:41; Stop 10/06/17 at 15:42; Status DC Clonazepam (KlonoPIN) 1 mg DAILY16 PO Last administered on 10/06/17at 17:41; Start 10/06/17 at 17:00 Hydroxyzine HCl (Atarax) 25 mg DAILY16 PO Last administered on 10/06/17 17:41; Start 10/06/17 at 17:00 Mirtazapine (Remeron) 15 mg DAILY16 PO Last administered on 10/06/17at 17:41; Start 10/06/17 at 17:00 Pantoprazole Sodium (Protonix) 40 mg DAILY16 PO Last administered on 10/06/17at 17:41; Start 10/06/17 at 17:00 Warfarin Sodium (Coumadin) 4 mg DAILY16 PO Last administered on 10/06/17at 17:41 ; Start 10/06/17 at 17:00 Atorvastatin Calcium (Lipitor) 40 mg DAILY16 PO Last administered on 10/06/17at 17:41; Start 10/06/17 at 17:00 Warfarin Sodium (Coumadin Per Pharmacy) 1 each PRN DAILY PRN MC SEE COMMENTS Last administered on 10/07/17at 13:40; Start 10/06/17 at 17:15 Morphine Sulfate (Morphine 4mg Syringe) 4 mg STK-MED ONCE .ROUTE ; Start at 19:35; Stop 10/06/17 at 19:36; Status DC Morphine Sulfate (Morphine 4mg Syringe) 4 mg STK-MED ONCE .ROUTE ; Start at 21:51; Stop 10/06/17 at 21:52; Status DC Morphine Sulfate (Morphine 4mg Syringe) 4 mg STK-MED ONCE .ROUTE ; Start at 01:13; Stop 10/07/17 at 01:14; Status DC Acetaminophen (Tylenol) 650 mg PRN Q6HRS PRN PO PAIN / TEMP Last administered on 10/07/17at 07:49; Start 10/07/17 at 07:30 Morphine Sulfate (Morphine 4mg Syringe) 2 mg PRN Q2HR PRN IV PAIN Last administered on 10/07/17at 09:23; Start 10/07/17 at 09:30 Promethazine HCl (Phenergan) 25 mg PRN Q6HRS PRN PO NAUSEA/VOMITING Last administered on 10/07/17at 11:58; Start 10/07/17 at 11:30 Active Scripts Active Reported Augmentin 875-125 Tablet (Amoxicillin/Potassium Clav) 1 Each Tablet 1 Tab PO BID Lipitor (Atorvastatin Calcium) 40 Mg Tablet 1 Tab PO DAILY16 Hydroxyzine Hcl 25 Mg Tablet 1 Tab PO DAILY16 Protonix (Pantoprazole Sodium) 40 Mg Tablet.dr 1 Tab PO DAILY16 Warfarin Sodium 4 Mg Tablet 1 Tab PO DAILY16 Remeron (Mirtazapine) 15 Mg Tablet 15 Mg PO DAILY16 Klonopin (Clonazepam) 1 Mg Tablet 1 Mg PO DAILY16 Allergies: Coded Allergies: doxycycline (Unverified Allergy, Intermediate, VOMITING, 10/07/17) PSYCHOLOGICAL ROS: No: Hallucinations Eyes: No: Loss of vision HEENT: No: Epistaxis Respiratory: No: Hemoptysis Cardiovascular: yes: Chest Pain Gastrointestinal: No: Vomiting Genitourinary: No: Henaturia Neurological: No: Seizures Skin: No: Rash General: Alert, Oriented X3 HEENT: Atraumatic, PERRLA Lungs: Clear to auscultation Heart: Regular rate Abdomen: Soft, No tenderness Extremities: No edema Psych/Mental Status: Mood NL VITALS Vital Signs Date Time Temp Pulse Resp B/P (MAP) Pulse Ox O2 Delivery O2 Flow Rate FiO2 10/07/17 10:39 98.1 67 20 117/63 (81) 95 Room Air Labs Laboratory Tests Test 10/06/17 12:25 10/06/17 13:55 10/06/17 16:00 10/06/17 19:55 White Blood Count 4.8 x10^3/uL (4.0-11.0) Red Blood Count 3.73 x10^6/uL (3.50-5.40) Hemoglobin 11.0 g/dL (12.0-15.5) Hematocrit 32.3 % (36.0-47.0) Mean Corpuscular Volume 87 fL (79-100) Mean Corpuscular Hemoglobin 30 pg (25-35) Mean Corpuscular Hemoglobin Concent 34 g/dL (31-37) Red Cell Distribution Width 15.0 % (11.5-14.5) Platelet Count 322 x10^3/uL (140-400) Neutrophils (%) (Auto) 57 % (31-73) Lymphocytes (%) (Auto) 34 % (24-48) Monocytes (%) (Auto) 6 % (0-9) Eosinophils (%) (Auto) 2 % (0-3) Basophils (%) (Auto) 1 % (0-3) Neutrophils # (Auto) 2.8 x10^3uL (1.8-7.7) Lymphocytes # (Auto) 1.6 x10^3/uL (1.0-4.8) Monocytes # (Auto) 0.3 x10^3/uL (0.0-1.1) Eosinophils # (Auto) 0.1 x10^3/uL (0.0-0.7) Basophils # (Auto) 0.0 x10^3/uL (0.0-0.2) Prothrombin Time 28.8 SEC (9.4-11.4) Prothromb Time International Ratio 2.9 (0.9-1.1) Activated Partial Thromboplast Time 38 SEC (23-33) Sodium Level 143 mmol/L (136-145) Potassium Level 3.6 mmol/L (3.5-5.1) Chloride Level 107 mmol/L (98-107) Carbon Dioxide Level 26 mmol/L (21-32) Anion Gap 10 (6-14) Blood Urea Nitrogen 7 mg/dL (7-20) Creatinine 0.7 mg/dL (0.6-1.0) Estimated GFR (Cockcroft-Gault) 92.7 Glucose Level 91 mg/dL (70-99) Calcium Level 8.2 mg/dL (8.5-10.1) Magnesium Level 1.9 mg/dL (1.8-2.4) Total Bilirubin 0.2 mg/dL (0.2-1.0) Direct Bilirubin < 0.1 mg/dL (0.0-0.2) Aspartate Amino Transf (AST/SGOT) 19 U/L (15-37) Alanine Aminotransferase (ALT/SGPT) 29 U/L (14-59) Alkaline Phosphatase 95 U/L (46-116) Creatine Kinase 179 U/L (26-192) Creatine Kinase MB (Mass) 0.8 ng/mL (0.0-3.6) Creatine Kinase MB Relative Index 0.4 % (0-4) Troponin I Quantitative < 0.017 ng/mL (0-0.055) < 0.017 ng/mL (0-0.055) < 0.017 ng/mL (0-0.055) OL-Sdm-I-Type Natriuretic Peptide 137 pg/mL (0-124) Total Protein 6.6 g/dL (6.4-8.2) Albumin 3.1 g/dL (3.4-5.0) Lipase 110 U/L (73-393) Thyroid Stimulating Hormone (TSH) 1.355 uIU/mL (0.358-3.740) Urine Collection Type Unknown Urine Color Yellow Urine Clarity Cloudy Urine pH >8.5 Urine Specific [place] 1.015 Urine Protein 30 mg/dl (NEG-TRACE) Urine Glucose (UA) Neg mg/dL (NEG) Urine Ketones (Stick) Neg mg/dL (NEG) Urine Blood Neg (NEG) Urine Nitrite Neg (NEG) Urine Bilirubin Neg (NEG) Urine Urobilinogen Dipstick 0.2 mg/dL (0.2 mg/dL) Urine Leukocyte Esterase Neg (NEG) Urine RBC 1-2 /HPF (0-2) Urine WBC 1-4 /HPF (0-4) Urine Squamous Epithelial Cells Mod /LPF Urine Bacteria Few /HPF (0-FEW) Urine Mucus Slight /LPF Urine Yeast Present /HPF Urine Test Negative (NEG) Urine Opiates Screen Neg (NEG) Urine Methadone Screen Neg (NEG) Urine Barbiturates Neg (NEG) Urine Phencyclidine Screen Neg (NEG) Urine Amphetamine/Methamphetamine Neg (NEG) Urine Benzodiazepines Screen Neg (NEG) Urine Cocaine Screen Neg (NEG) Urine Cannabinoids Screen Neg (NEG) Urine Ethyl Alcohol Neg (NEG) Test 10/07/17 06:12 White Blood Count 5.3 x10^3/uL (4.0-11.0) Red Blood Count 3.40 x10^6/uL (3.50-5.40) Hemoglobin 10.1 g/dL (12.0-15.5) Hematocrit 29.4 % (36.0-47.0) Mean Corpuscular Volume 87 fL (79-100) Mean Corpuscular Hemoglobin 30 pg (25-35) Mean Corpuscular Hemoglobin Concent 35 g/dL (31-37) Red Cell Distribution Width 14.9 % (11.5-14.5) Platelet Count 271 x10^3/uL (140-400) Neutrophils (%) (Auto) 49 % (31-73) Lymphocytes (%) (Auto) 43 % (24-48) Monocytes (%) (Auto) 5 % (0-9) Eosinophils (%) (Auto) 2 % (0-3) Basophils (%) (Auto) 1 % (0-3) Neutrophils # (Auto) 2.6 x10^3uL (1.8-7.7) Lymphocytes # (Auto) 2.3 x10^3/uL (1.0-4.8) Monocytes # (Auto) 0.3 x10^3/uL (0.0-1.1) Eosinophils # (Auto) 0.1 x10^3/uL (0.0-0.7) Basophils # (Auto) 0.0 x10^3/uL (0.0-0.2) Prothrombin Time 31.6 SEC (9.4-11.4) Prothromb Time International Ratio 3.1 (0.9-1.1) Sodium Level 141 mmol/L (136-145) Potassium Level 3.8 mmol/L (3.5-5.1) Chloride Level 106 mmol/L (98-107) Carbon Dioxide Level 27 mmol/L (21-32) Anion Gap 8 (6-14) Blood Urea Nitrogen 9 mg/dL (7-20) Creatinine 0.7 mg/dL (0.6-1.0) Estimated GFR (Cockcroft-Gault) 92.7 Glucose Level 98 mg/dL (70-99) Calcium Level 8.3 mg/dL (8.5-10.1) Assessment/Plan 1. Chest pain with atypical features most probably GI etiology. Myocardial infarction ruled out. 2-D echo showed normal LV systolic function without any wall motion abnormalities. No further cardiac workup is indicated at this time. 2. Factor V Leyden deficiency: Continue warfarin 3. Hyperlipidemia: Continue statin therapy Thank you for your consultation Problems: MYRA SWANSON MD Oct 07, 2017 14:05
--- NOTE | 2017-10-07 14:38 | CARD ---
MR#: [id number] Date of Study: 10/07/2017 Ordering Physician: MYRA SWANSON, Referring Physician: LEYDI YOUSIF Tech: MEGHANN Hendricks APPROVED REPORT EXAM: Two-dimensional and M-mode echocardiogram with Doppler and color Doppler. Other Information Quality : AverageHR: 64bpm Technically limited study due to body habitus. INDICATION Chest Pain 2D DIMENSIONS Left Atrium(2D)3.0 (1.6-4.0cm)IVSd1.0 (0.7-1.1cm) Aortic Root(2D)2.6 (2.0-3.7cm)LVDd4.7 (3.9-5.9cm) LVOT Diameter1.9 (1.8-2.4cm)PWd1.0 (0.7-1.1cm) LVDs3.3 (2.5-4.0cm)FS (%) 29.4 % SV57.2 mlLVEF(%)56.3 (>50%) Aortic Valve AoV Peak Sky.135.9cm/sAoV VTI32.3cm AO Peak GR.7.4mmHgLVOT Peak Sky.83.4cm/s LVOT VTI 21.66cmAO Mean GR.4mmHg CHANDAN (VMAX)1.01zl4CIA (VTI)1.95cm2 Mitral Valve MV E Peak Gr.100mmHg Pulmonary Valve PV Peak Tumivytm349.1cm/sPV Peak Grad.5mmHg Pulmonary Vein S1 Hdbuxqxt93.9cm/sD2 Kdpspvor93.2cm/s LEFT VENTRICLE The left ventricle is normal size. There is normal left ventricular wall thickness. The left ventricu lar systolic function is normal and the ejection fraction is within normal range. EF 55% There is shane ssly normal LV segmental wall motion. Technically limited images. The left ventricular diastolic func tion and filling is normal for age. RIGHT VENTRICLE The right ventricle is normal size. The right ventricular systolic function is normal. ATRIA The left atrium size is normal. The right atrium size is normal. The interatrial septum is intact wit h no evidence for an atrial septal defect or patent foramen ovale as noted on 2-D or Doppler imaging. AORTIC VALVE The aortic valve is thickened but opens well. Doppler and Color Flow revealed no significant aortic r egurgitation. There is no significant aortic valvular stenosis. There is no aortic valvular vegetatio n. MITRAL VALVE The mitral valve is mildly thickened. There is no evidence of mitral valve prolapse. There is no mitr al valve stenosis. Doppler and Color-flow revealed mild mitral regurgitation. TRICUSPID VALVE The tricuspid valve is normal in structure and function. Doppler and Color Flow revealed trace tricus pid regurgitation. There is no tricuspid valve prolapse or vegetation. There is no tricuspid valve st enosis. PULMONIC VALVE The pulmonic valve is not well visualized. Doppler and Color Flow revealed trace to mild pulmonic ching vular regurgitation. There is no pulmonic valvular stenosis. GREAT VESSELS The aortic root is normal size. The aortic root displays mild sclerocalcific changes of the aortic ro ot. The IVC is normal in size and collapses >50% with inspiration. PERICARDIAL EFFUSION There is no pleural effusion. There is no evidence of significant pericardial effusion. Critical Notification Critical Value: No <Conclusion> The left ventricular systolic function is normal and the ejection fraction is within normal range. EF 55% There is grossly normal LV segmental wall motion. Technically limited images. Signed by : Boo Herrera, Electronically Approved : 10/07/2017 14:37:45
[2017-10-07 14:54] VITALS: BP 142/84
[2017-10-07] MEDS: WARFARIN 4 MG TABLET. PO SCH (16:00)
[2017-10-07] MEDS ORDERED: WARFARIN 3 MG TABLET. PO ONE (17:00)
[2017-10-07] MEDS: hydrOXYzine HCL 25 MG TABLET PO SCH (17:01)
[2017-10-07] MEDS: ATORVASTATIN CALCIUM 20 MG TABLET PO SCH (17:01)
[2017-10-07] MEDS: clonazePAM 1 MG TABLET PO SCH (17:01)
[2017-10-07] MEDS: MIRTAZAPINE 15 MG TABLET PO SCH (17:02)
[2017-10-07] MEDS: PANTOPRAZOLE 40 MG TABLET. PO SCH (17:02)
--- NOTE | 2017-10-07 18:17 | NUR ---
Discharge Note: TERI KAT [address] Discharge instructions and discharge home medications reviewed with PATIENT and a copy given. All questions have been answered and understanding verbalized. The following instructions and handouts were given: MEDICATIONS, FOLLOW UP INSTRUCTIONS, PRESCRIPTION, AND EDUCATIONAL HANDOUTS GIVEN. Discontinued lines and drains: PERIPHERAL IV DISCONTINUED WITH NO COMPLICATIONS. Patient discharged to HOME with MOTHER via PRIVATE VEHICLE.
--- NOTE | 2017-10-07 19:21 | HP ---
ADMIT DATE: 10/06/2017 HISTORY OF PRESENT ILLNESS: The patient is a 41-year-old female patient who came complaining that her chest pain is not retrosternal. She apparently was seen in the Emergency Room for abdominal pain for which she was seen in the Emergency Room, had an abdominal CT and right abdominal ultrasound which did not show any abnormality. It did show that she has some bronchiolitis of her lungs and she was sent home on Augmentin. She stated that she started medication yesterday. She said that the pain in her epigastric area does not radiate to her left shoulder. She states that nothing makes the pain better or worse. She does feel short of breath with exertion. She states that today she felt lightheaded when she was going down some steps and fell. She fell down 5 or 6 steps and landed on her knee. She does complain about the back discomfort after this and in the thoracic area. She denied any headache or neck pain. She is known to have factor V Leiden deficiency. She stated that she is compliant with her Coumadin medication. She states she has never had any evaluation for cardiac abnormalities or stress test before. She does smoke cigarettes and occasionally when she is stressed. She stated she has a family history of stroke. She was evaluated in the Emergency Room and has had lab work and her first set of cardiac enzyme was less than 0.17. Her EKG showed that she was in sinus rhythm, heart rate was 76 beats per minute without any concerning ST elevation or T-wave inversion and was admitted to do 2 more sets of cardiac enzyme, consult a fitness sales associate. PAST MEDICAL HISTORY: Significant Factor V Leiden, has DVT and PE, hyperlipidemia, anxiety, and gastroesophageal reflux disease. PAST SURGICAL HISTORY: Significant for right inguinal periumbilical hernia repair, , tonsillectomy, tubal ligation and uterine ablation as she has excessive dysfunctional uterine bleeding. She has esophagogastroduodenoscopy and colonoscopy. ALLERGIES: SHE IS ALLERGIC TO DOXYCYCLINE. MEDICATIONS: She is currently on following medications: She was on amoxicillin/clavulanic acid 1 tablet twice a day, warfarin 4 mg once a day, atorvastatin calcium 40 mg at bedtime, clonazepam 1 mg daily, mirtazapine for Remeron 50 mg daily, hydroxyzine 25 mg daily, and Protonix 40 mg once a day. FAMILY HISTORY: She has one brother older and apparently of a drug overdose. One sister younger because of breast cancer. Her father because of CVA at 62 and apparently positive for factor V Leiden. Her mother is still alive, she has diabetes, hypertension, colitis and chronic kidney disease. SOCIAL HISTORY: She is , has 1 son. Quit smoking a week ago. She does not drink alcohol or use recreational drugs. 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 Denied any earache, tinnitus or sensorineural deafness. Denied any nosebleeds, stuffy nose or postnasal drip. Denied any sore throat, sore tongue, toothache, hoarseness of voice or difficulty swallowing. She did complain of nausea and vomiting. She also had an episode of diarrhea, and subsided over the weekend. Denied any hematemesis, melena or hematochezia. Denied any dysuria, frequency or hematuria. Did complain of chest pain or shortness of breath. Denied any orthopnea or paroxysmal nocturnal dyspnea. Denied any cough, phlegm or hemoptysis. PHYSICAL EXAMINATION: GENERAL: On arrival to the Emergency Room, she apparently looked well and was clearly in no apparent respiratory distress. She was pale, but no jaundice, cyanosis, or thyromegaly. No jugular venous distension. No limb edema. VITAL SIGNS: Her heart rate was 71, blood pressure 145/90, temperature was 97.5, respiratory rate 20, and oxygen saturation was 96%. HEENT: Showed normocephalic, atraumatic. NECK: Supple. HEART: Showed normal first and second heart sounds with no gallop, rub or murmur. CHEST: Clear to auscultation. No crepitation or rhonchi. ABDOMEN: Distended, soft, nontender. No guarding or rigidity. No organomegaly. All hernial orifice intact. Bowel sounds normal. NEUROLOGIC: She was awake, alert, responding appropriately. Cranial nerves intact. EXTREMITIES: She moves extremities without difficulty. She ambulates without assistance or assistive devices. LABORATORY DATA: Showed her ____ sodium was 143, potassium 3.6, chloride 107, bicarbonate 26, anion gap of 10, BUN 7, creatinine 0.7, estimated GFR was 93 mL per minute. Her glucose was 91, calcium was 8.2. Magnesium 1.9. Total bilirubin, AST, ALT, alkaline phosphatase were normal. Her total protein was 6.6, albumin 3.1. Her prothrombin time was 31.6. INR of 3.1. Urinalysis was unremarkable and toxic screen was negative. PLAN: The patient was admitted to do 2 more sets of cardiac enzymes, consult the Cardiology and decide on further management accordingly. LEYDI YOUSIF MD DR: PUNEET/anupama JOB#: [id number] / [id number]
--- NOTE | 2017-10-07 19:40 | DS ---
DATE OF DISCHARGE: 10/07/2017 HOSPITAL COURSE: The patient was admitted with chest pain that was somewhat atypical. She has had 3 sets of cardiac enzymes that were negative. She has had an echocardiogram which showed she has left ventricular systolic function normal, ejection fraction of 55%. The Cardiology did not recommend any further ischemic workup. She probably needs further evaluation by the supervisor electronics assembly. She probably has gastroesophageal reflux disease. PHYSICAL EXAMINATION: GENERAL: When I saw her this afternoon, she was resting slightly propped up in bed, in no apparent respiratory distress, pale, but no jaundice, cyanosis or thyromegaly. No jugular venous distension. No limb edema. VITAL SIGNS: Her heart rate was 61, blood pressure was 142/84, temperature was 98.1, respiratory rate 20, and oxygen saturation was 95%. The rest of clinical examination is unremarkable. LABORATORY DATA: As stated showed a normal white cell count, hemoglobin, hematocrit and platelets. Her 3 sets of cardiac enzymes were negative. DISCHARGE MEDICATIONS: The patient was discharged home to continue with her current medication and should follow with the supervisor electronics assembly. FINAL DISCHARGE DIAGNOSES: Chest pain, myocardial infarction ruled out. She has history of factor V Leiden, history of deep venous thrombosis and pulmonary edema, and also gastroesophageal reflux disease. LEYDI YOUSIF MD DR: PUNEET/anupama JOB#: [id number] / [id number]
--- NOTE | 2017-10-08 00:51 | PN ---
DATE: 10/07/2017 SUBJECTIVE: The patient is resting, slightly propped up in bed, continued to complain of chest pain, rated as 2/10. Denied any diaphoresis, nausea, vomiting or shortness of breath. She has had 3 sets of cardiac enzymes and all of them were negative. She apparently was seen by the mechanic field service, who ordered an echocardiogram, which was done and it showed that the left ventricular systolic function is normal with ejection fraction within normal range of 55%. She is grossly normal with no evidence of any significant valvular stenosis or regurgitation. PHYSICAL EXAMINATION: GENERAL: When I examined her this afternoon, she looked well and was clearly in no apparent respiratory distress, pale, but no jaundice, cyanosis, or thyromegaly. No jugular venous distension. No limb edema. VITAL SIGNS: Her heart rate was 67, blood pressure was 119/67, temperature was 97.7, respiratory rate was 20, and oxygen saturation was 96%. The rest of physical examination is unremarkable, has not really changed. LABORATORY DATA: Her lab work yesterday had 2 more sets of cardiac enzymes that ruled out myocardial infarction. Her chemistry as well as CBC is within acceptable range. ASSESSMENT: The patient presented initially with nausea, vomiting, and diarrhea, and now chest pain. She is known to have gastroesophageal reflux disease and probably that is the cause of her chest pain. She has 3 sets of cardiac enzymes that ruled out myocardial infarction. Echocardiogram showed normal left ventricular systolic function and ejection fraction. I will await evaluation by the Cardiology team and if they recommend the patient can be discharged. She can be followed up as an outpatient. LEYDI YOUSIF MD DR: PUNEET/anupama JOB#: [id number] / [id number]
== END 2017-10-07 18:15 | disposition home or self-care (01) | DRG 392 ==
LOC: ER 11:53 → 1 SOUTH 14:20
PROVIDERS: ADMIT Internal Medicine; ATTEND Internal Medicine
DX: K21.9 Gastro-esophageal reflux disease without esophagitis (principal); D68.2 Hereditary deficiency of other clotting factors; W10.8XXA Fall (on) (from) other stairs and steps, initial encounter; F32.9 Major depressive disorder, single episode, unspecified; F41.9 Anxiety disorder, unspecified; E78.5 Hyperlipidemia, unspecified; F17.210 Nicotine dependence, cigarettes, uncomplicated; Y92.238 Other place in hospital as the place of occurrence of the external cause; Z82.3 Family history of stroke; Z88.1 Allergy status to other antibiotic agents; Z86.718 Personal history of other venous thrombosis and embolism; Z86.711 Personal history of pulmonary embolism; Z98.51 Tubal ligation status; Z79.01 Long term (current) use of anticoagulants; Z79.899 Other long term (current) drug therapy; Z80.3 Family history of malignant neoplasm of breast; Z83.3 Family history of diabetes mellitus; Z82.49 Family history of ischemic heart disease and other diseases of the circulatory system; Z84.1 Family history of disorders of kidney and ureter; Y93.89 Activity, other specified; Y99.8 Other external cause status
CPT/HCPCS: 36415; 71045; 72072; 80048; 80076; 80307; 81001; 81025; 82553; 83690; 83735; 83880; 84443; 84484; 85025; 85610; 85730; 93306; J2270; Q0169; 99285-25; G0479

== ENCOUNTER → 2017-10-17 | Outpatient (CLI) | payer OTHER ==
[2017-10-07 14:54] VITALS: BP 142/84
[~2017-10-17] MED LIST changes: +ATOR40TA PO; +HYDR25TA PO; +PANT40TA3 PO; +WARF4TAB7 PO
--- NOTE | 2017-10-17 10:41 | RAD ---
Indication: Abdominal pain, nausea and vomiting. Technique: Hepatobiliary scintigraphy utilized 5.5 mCi technetium 99m labeled Choletec IV. As there is a CCK shortage, patient was given 8 ounces of a Boost shake and gallbladder ejection fraction then calculated. Findings: There is prompt uptake of radiotracer by the hepatic parenchyma with gallbladder visualized at 10 minutes. Bowel activity is noted. Gallbladder ejection fraction is calculated at 72%, within normal limits. Impression: Normal hepatobiliary scintigraphy with normal gallbladder ejection fraction.
== END | disposition home or self-care (01) ==
LOC: NM 07:16
PROVIDERS: ATTEND Internal Medicine Gastroenterology
DX: R10.13 Epigastric pain (principal); R11.0 Nausea; K21.9 Gastro-esophageal reflux disease without esophagitis; E78.5 Hyperlipidemia, unspecified; F17.210 Nicotine dependence, cigarettes, uncomplicated; Z79.01 Long term (current) use of anticoagulants
CPT/HCPCS: 78226; 96374; 96375; A9537

== ENCOUNTER 2017-12-06 22:20 | Emergency (ER) | payer OTHER ==
[~2017-12-06] VITALS: Ht 154.9 cm; Wt 81.2 kg
[~2017-12-06 22:20] MED LIST changes: +WARF4TAB64 PO; -WARF4TAB7 PO
--- NOTE | 2017-12-06 22:23 | ED.ADGEN ---
Past History Past Medical History: Anxiety, Depression, GERD, Other Past Surgical History: , Tonsillectomy, Other Alcohol Use: None Drug Use: None Adult General Chief Complaint Chief Complaint " I ve have this severe Rt. lower abdomen pain... I ve had surgery for an hernia down there 3 x now..... I had some diarrhea to the last coupled days... all I know in hurts down there..." HPI HPI Patient is a 42 year old female who presents with above hx and complaints of diarrhea and Rt. lower abd. pain x 2 days. Pt. has had surgical repair x 3 to site of pain, for hernia repair . Pt. did eat spaghetti and meatballs before she arrived in the emergency department. Patient states she had approximately 10 diarrhea stools per day. They appear to be brown and not bloody. No history of trauma. 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 Patient does have scarring in her right lower abdomen from 3 previous surgeries- One to remove the mesh from prior abd. hernia repair . Pt denies intake of bad food. Denies any travel or specific ill contacts. Patient normally follows at [place] for care . Patient denies any history of vaginal discharge or concerns for STD. Patient does have some complaints of dysuria. No history of kidney stones. Review of Systems Review of Systems Constitutional: Denies fever or chills [] Eyes: Denies change in visual acuity, redness, or eye pain [] HENT: Denies nasal congestion or sore throat [] Respiratory: Denies cough or shortness of breath [] Cardiovascular: No additional information not addressed in HPI [] GI:ComPlaints of right lower abdominal pain,. Nausea. Denies, vomiting, bloody stools . Does complain of diarrhea []pain is localized in her old surgery scar area : History of dysuria Musculoskeletal: Denies back pain or joint pain [] Integument: Denies rash or skin lesions [] Neurologic: Denies headache, focal weakness or sensory changes [] Endocrine: Denies polyuria or polydipsia [] All other systems were reviewed and found to be within normal limits, except as documented in this note. Family History Family History Noncontributory Current Medications Current Medications Current Medications Medications (Trade) Dose Ordered Sig/Jerrod Start Time Stop Time Status Last Admin Dose Admin Ceftriaxone Sodium 1 gm/ Sodium Chloride 50 ml @ 100 mls/hr 1X ONCE 12/07/17 00:30 12/07/17 00:59 DC 12/07/17 01:11 100 MLS/HR Ceftriaxone Sodium (Rocephin) 1 gm STK-MED ONCE 12/07/17 01:00 12/07/17 01:01 DC Diphenhydramine HCl (Benadryl) 50 mg 1X ONCE 12/07/17 01:45 12/07/17 01:46 DC 12/07/17 01:46 50 MG Famotidine (Pepcid Vial) 20 mg 1X ONCE 12/06/17 23:00 12/06/17 23:05 DC 12/06/17 23:43 20 MG Info (Do NOT chart on this entry -- for MONITORING) 1 each PRN DAILY PRN 12/06/17 23:15 12/07/17 03:17 DC Iohexol (Omnipaque 240 Mg/ml) 50 ml 1X ONCE 12/06/17 23:15 12/06/17 23:16 DC 12/07/17 00:36 50 ML Iohexol (Omnipaque 300 Mg/ml) 75 ml 1X ONCE 12/06/17 23:15 12/06/17 23:16 DC 12/07/17 00:35 75 ML Lactated Ringer's 1,000 ml @ 1,000 mls/hr Q1H 12/06/17 22:59 12/06/17 23:58 DC 12/06/17 23:42 1,000 MLS/HR Magnesium Hydroxide (Milk Of Magnesia) 2,400 mg 1X ONCE 12/07/17 01:30 12/07/17 01:31 DC 12/07/17 01:45 2,400 MG Metronidazole 100 ml @ 100 mls/hr ONCE ONCE 12/07/17 00:30 12/07/17 01:29 DC 12/07/17 01:42 100 MLS/HR Morphine Sulfate (Morphine 10mg Syringe) 10 mg 1X ONCE 12/06/17 23:00 12/06/17 23:05 DC 12/06/17 23:43 10 MG Potassium Chloride (KCl Oral Soln) 40 meq 1X ONCE 12/07/17 01:45 12/07/17 01:46 DC 12/07/17 01:53 40 MEQ Promethazine HCl (Phenergan Im) 25 mg 1X ONCE 12/07/17 01:45 12/07/17 01:46 DC 12/07/17 01:46 25 MG Sodium Chloride 50 ml @ As Directed STK-MED ONCE 12/07/17 01:00 12/07/17 01:01 DC Allergies Allergies Allergies Coded Allergies Type Severity Reaction Last Updated Verified doxycycline Allergy Intermediate VOMITING 10/07/17 No Physical Exam Physical Exam Constitutional: Moderately acute distress, non-toxic appearance. [] HENT: Normocephalic, atraumatic, bilateral external ears normal, oropharynx moist, no oral exudates, nose normal. [] Eyes: PERRLA, EOMI, conjunctiva normal, no discharge. [] Neck: Normal range of motion, no tenderness, supple, no stridor. [] Cardiovascular:Heart rate regular rhythm, no murmur [] Lungs & Thorax: Bilateral breath sounds equal at apex on auscultation [] Abdomen: Bowel sounds hyperactive,, soft, right lower abdomen scar tenderness, distended, no masses, no pulsatile masses. Patient declines rectal exam or pelvic exam this time. There is no true rebound findings. Old surgery scars. Obese Skin: Warm, dry, no erythema, no rash. [] Back: No tenderness, no CVA tenderness. [] Extremities: No tenderness, no cyanosis, no clubbing, ROM intact, no edema. No psoas or heeltap Neurologic: Alert and oriented X 3, normal motor function, normal sensory function, no focal deficits noted. [] Psychologic: Affect anxious, judgement normal, mood normal. [] Current Patient Data Vital Signs Vital Signs Date Time Temp Pulse Resp B/P (MAP) Pulse Ox O2 Delivery O2 Flow Rate FiO2 12/06/17 22:50 83 18 125/65 (85) 97 Room Air 12/06/17 22:20 97.7 Lab Results Laboratory Tests Test 12/06/17 22:44 12/06/17 23:05 Urine Collection Type Unknown Urine Color Straw Urine Clarity Hazy Urine pH 5.5 Urine Specific [place] 1.010 Urine Protein Neg (NEG-TRACE) Urine Glucose (UA) Neg mg/dL (NEG) Urine Ketones (Stick) Neg mg/dL (NEG) Urine Blood Small (NEG) Urine Nitrite Neg (NEG) Urine Bilirubin Neg (NEG) Urine Urobilinogen Dipstick 0.2 mg/dL (0.2 mg/dL) Urine Leukocyte Esterase Trace (NEG) Urine RBC Occ /HPF (0-2) Urine WBC 5-10 /HPF (0-4) Urine Squamous Epithelial Cells Mod /LPF Urine Bacteria Mod /HPF (0-FEW) Urine Mucus Mod /LPF White Blood Count 6.7 x10^3/uL (4.0-11.0) Red Blood Count 3.83 x10^6/uL (3.50-5.40) Hemoglobin 11.5 g/dL (12.0-15.5) L Hematocrit 33.1 % (36.0-47.0) L Mean Corpuscular Volume 87 fL (79-100) Mean Corpuscular Hemoglobin 30 pg (25-35) Mean Corpuscular Hemoglobin Concent 35 g/dL (31-37) Red Cell Distribution Width 14.9 % (11.5-14.5) H Platelet Count 347 x10^3/uL (140-400) Neutrophils (%) (Auto) 56 % (31-73) Lymphocytes (%) (Auto) 36 % (24-48) Monocytes (%) (Auto) 6 % (0-9) Eosinophils (%) (Auto) 1 % (0-3) Basophils (%) (Auto) 1 % (0-3) Neutrophils # (Auto) 3.7 x10^3uL (1.8-7.7) Lymphocytes # (Auto) 2.5 x10^3/uL (1.0-4.8) Monocytes # (Auto) 0.4 x10^3/uL (0.0-1.1) Eosinophils # (Auto) 0.1 x10^3/uL (0.0-0.7) Basophils # (Auto) 0.1 x10^3/uL (0.0-0.2) Prothrombin Time 28.4 SEC (9.4-11.4) H Prothrombin Time INR 2.8 (0.9-1.1) H PTT 39 SEC (23-33) H Maternal Serum HCG Beta Subunit 1 mIU/mL (0-6) Sodium Level 140 mmol/L (136-145) Potassium Level 3.2 mmol/L (3.5-5.1) L Chloride Level 101 mmol/L (98-107) Carbon Dioxide Level 26 mmol/L (21-32) Anion Gap 13 (6-14) Blood Urea Nitrogen 8 mg/dL (7-20) Creatinine 1.0 mg/dL (0.6-1.0) Estimated GFR (Cockcroft-Gault) 61.1 Glucose Level 115 mg/dL (70-99) H Calcium Level 8.5 mg/dL (8.5-10.1) Total Bilirubin 0.3 mg/dL (0.2-1.0) Direct Bilirubin 0.1 mg/dL (0.0-0.2) Aspartate Amino Transferase (AST) 23 U/L (15-37) Alanine Aminotransferase (ALT) 28 U/L (14-59) Alkaline Phosphatase 123 U/L (46-116) H Total Protein 7.1 g/dL (6.4-8.2) Albumin 3.4 g/dL (3.4-5.0) Lipase 157 U/L (73-393) EKG EKG [] Radiology/Procedures Radiology/Procedures My interpretation of abdomen film shows a nonobstructive bowel gas pattern. Previous clips from surgery. No free air under the diaphragm. CT of abdomen shows no surgical pathology at this time. Does have marked scarring in abdomen wall on anterior right lower quadrant.[] Course & Med Decision Making Course & Med Decision Making Pertinent Labs and Imaging studies reviewed. (See chart for details). Pt. to stay on clear fluid diet only. No solids or milk products x 48 hrs. Push fruit juices. Take Keflex 500 three times a day.x 7 days. Follow up with primary and review xrays and labs completed here in the ED. Return if any concerns. Patient reports almost complete resolution of symptoms at time of discharge and was ambulatory without problems. [] Final Impression Final Impression 1. Abdomen pain[] 2. UTI 3. Factor V Disorder 4. Therapeutic INR of 2.8 5, Hypokalemia 6. Anemia 7. Abdomen Wall Adhesions-Rt. Lower Quadrant Dragon Disclaimer Dragon Disclaimer This electronic medical record was generated, in whole or in part, using a voice recognition dictation system. SONNY KIMBALL MD Dec 06, 2017 22:23
[2017-12-06] MEDS ORDERED: IV RINGERS SOLUTION,LACTATED 1,000 ML IV SCH (22:59)
[2017-12-06] MEDS ORDERED: FAMOTIDINE 20 MG/2 ML VIAL IVP ONE (23:00)
[2017-12-06] MEDS ORDERED: MORPHINE SULFATE 10 MG/ML SYRINGE. SQ ONE (23:00)
--- NOTE | 2017-12-06 23:11 | EKG ---
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
[2017-12-06] MEDS ORDERED: CONTRAST GIVEN MC PRN (23:15)
[2017-12-06] MEDS ORDERED: IOHEXOL 300 MG/ML 75 ML VIAL. IV ONE (23:15)
[2017-12-06] MEDS ORDERED: IOHEXOL 240 MG/ML 50ML VIAL. PO ONE (23:15)
[2017-12-06 23:19] LABS: BACTERIA,URINE MOD /HPF (0-FEW); BILIRUBIN,URINE NEG (NEG); CLARITY,URINE HAZY; COLOR,URINE STRAW; GLUCOSE,URINE NEG (NEG); NITRITE,URINE NEG (NEG); RBC,URINE OCC /HPF (0-2); SQUAMOUS EPITHELIAL CELL,UR MOD /LPF; UROBILINOGEN,URINE 0.2 mg/dL (0.2 mg/dL)
[2017-12-06 23:19] LABS: BASO # 0.1 x10^3/uL (0.0-0.2); BASO % 1 % (0-3); EOS # 0.1 x10^3/uL (0.0-0.7); EOS % 1 % (0-3); HEMATOCRIT 33.1 % (36.0-47.0); HEMOGLOBIN 11.5 g/dL (12.0-15.5); LYMPH # 2.5 x10^3/uL (1.0-4.8); LYMPH % 36 % (24-48); MEAN CORPUSCULAR HEMOGLOBIN 30 pg (25-35); MEAN CORPUSCULAR HGB CONC 35 g/dL (31-37); MEAN CORPUSCULAR VOLUME 87 fL (79-100); MONO # 0.4 x10^3/uL (0.0-1.1); MONO % 6 % (0-9); NEUT # 3.7 x10^3uL (1.8-7.7); NEUT % 56 % (31-73); PLATELET COUNT 347 x10^3/uL (140-400); RED BLOOD COUNT 3.83 x10^6/uL (3.50-5.40); RED CELL DISTRIBUTION WIDTH 14.9 % (11.5-14.5); WHITE BLOOD COUNT 6.7 x10^3/uL (4.0-11.0)
[2017-12-06 23:32] LABS: ALBUMIN 3.4 g/dL (3.4-5.0); CALCIUM 8.5 mg/dL (8.5-10.1); DIRECT BILIRUBIN 0.1 mg/dL (0.0-0.2); GFR 61.1; POTASSIUM 3.2 mmol/L (3.5-5.1); TOTAL BILIRUBIN 0.3 mg/dL (0.2-1.0); TOTAL PROTEIN 7.1 g/dL (6.4-8.2)
--- NOTE | 2017-12-07 00:33 | RAD ---
Indication: Right-sided abdominal pain. History of inguinal hernia x3. Tubal ligation. TECHNIQUE: AP chest and 3 views of the abdomen and pelvis COMPARISON: None FINDINGS: Heart is normal in size. Lungs are clear. No pneumothorax or pleural effusion. Visualized bony thorax within normal limits. No evidence of free intraperitoneal air. No abnormally dilated bowel loops or air-fluid levels. No abnormal calcific densities projecting over the kidneys to suggest stones. Visualized bones are within normal limits. IMPRESSION: No radiographic evidence of bowel obstruction. Electronically signed by: Nilson Davis DO (12/07/2017 12:29 AM) [facility]
[2017-12-07] MEDS ORDERED: IV NORMAL SALINE 50ML 50 ML ONE (01:00)
[2017-12-07] MEDS ORDERED: cefTRIAXone SODIUM 1 GM VIAL IV ONE (01:00)
--- NOTE | 2017-12-07 01:09 | RAD ---
Indication:Right lower abdominal pain. Hx inguinal hernia x3 and tubal ligation. TECHNIQUE: CT abdomen and pelvis with IV contrast with multiplanar reformats. COMPARISON: Study from 10/04/2017 FINDINGS: Heart is normal in size. Clear lung bases. Liver, spleen, gallbladder, pancreas, adrenals within normal limits. No nephrolithiasis or hydronephrosis. No retroperitoneal or pelvic adenopathy. Normal appendix. No bowel obstruction. Urinary bladder within normal limits. Uterus is anteverted. No free pelvic fluid or ascites. Scarring is seen in the right inguinal region likely previous hernia repair. No new hernia. No suspicious bony lesion. IMPRESSION: 1. Scarring in the anterior lower pelvic wall in the region of inguinal canal. No new in the hernia. 2. Normal appendix. No nephrolithiasis. Electronically signed by: Nilson Davis DO (12/07/2017 1:06 AM) [facility]
[2017-12-07] MEDS ORDERED: CEPH-264 PO (01:15)
[2017-12-07] MEDS ORDERED: MAGNESIUM HYDROXIDE 2,400 MG/30 ML ORAL.SUSP. PO ONE (01:30)
[2017-12-07] MEDS ORDERED: POTASSIUM CHLORIDE 20 MEQ/15 ML ORAL LIQUID. PO ONE (01:45)
[2017-12-07] MEDS ORDERED: PROMETHAZINE IM 25 MG/ML VIAL IM ONE (01:45)
[2017-12-07] MEDS ORDERED: diphenhydrAMINE 50 MG/ML VIAL IVP ONE (01:45)
[2017-12-07 02:42] VITALS: BP 136/87
== END 2017-12-07 02:45 | disposition home or self-care (01) ==
LOC: ER 22:20
DX: N39.0 Urinary tract infection, site not specified (principal); D68.2 Hereditary deficiency of other clotting factors; E87.6 Hypokalemia; D64.9 Anemia, unspecified; K66.0 Peritoneal adhesions (postprocedural) (postinfection); K21.9 Gastro-esophageal reflux disease without esophagitis; Z98.890 Other specified postprocedural states; Z88.1 Allergy status to other antibiotic agents
CPT/HCPCS: 36415; 74022; 74177; 80048; 80076; 81001; 83690; 84702; 85025; 85610; 85730; 87086; 93005; 96361; 96365; 96367; 96372; 96375; 99285; J0696; J1200; J2270; J2550; J3490; J7120; Q9966; Q9967; S0028

== ENCOUNTER 2017-12-16 19:39 | Emergency (ER) | payer OTHER ==
[~2017-12-16] VITALS: Ht 154.9 cm; Wt 81.0 kg
[~2017-12-16 19:39] MED LIST changes: +CEPH-264 PO
--- NOTE | 2017-12-16 19:43 | ED.ADGEN ---
Past History Past Medical History: Anxiety, Depression, GERD, High Cholesterol, Other Past Surgical History: Tonsillectomy, Tubal ligation Alcohol Use: None Drug Use: None Adult General Chief Complaint Chief Complaint ".. I got pain.. and diarrhea..." [facility] HPI Patient is a 42 year old female who presents with hx of acute on chronic diarrhea and generalized abd. pain. Pt. has had diarrhea 6 or more stools a day x 6 months. Has not followed up with GI. Pt. has complaints of generalized abd. pain. No hx of bad food, travel or specific ill contacts. Pt. also complaining of nausea and vomiting 4-5 times today. Pt. has hx of GERD like symptoms. Pt. follows at [place]. Pt did eat today. Pt. has hx of Factor V Leiden deficiency and is on coumadin. Pt. mother. has hx of colitis. Review of Systems Review of Systems Constitutional: Denies fever or chills [] Eyes: Denies change in visual acuity, redness, or eye pain [] HENT: Denies nasal congestion or sore throat [] Respiratory: Denies cough or shortness of breath [] Cardiovascular: No additional information not addressed in HPI [] GI: Hx of generalized abdominal pain, nausea, vomiting, and diarrhea [] : Denies dysuria or hematuria [] Musculoskeletal: Denies back pain or joint pain [] Integument: Denies rash or skin lesions [] Neurologic: Denies headache, focal weakness or sensory changes [] Endocrine: Denies polyuria or polydipsia [] All other systems were reviewed and found to be within normal limits, except as documented in this note. Family History Family History Mother with Colitis Current Medications Current Medications Current Medications Medications (Trade) Dose Ordered Sig/Jerrod Start Time Stop Time Status Last Admin Dose Admin Diphenhydramine HCl (Benadryl) 50 mg 1X ONCE 12/16/17 22:45 12/16/17 22:47 DC 12/16/17 22:45 50 MG Famotidine (Pepcid) 20 mg 1X ONCE 12/16/17 20:00 12/16/17 20:01 DC 12/16/17 20:45 20 MG Ketorolac Tromethamine (Toradol) 30 mg 1X ONCE 12/16/17 23:55 12/16/17 23:57 DC Lactated Ringer's 1,000 ml @ 1,000 mls/hr Q1H 12/16/17 19:44 12/16/17 20:43 DC 12/16/17 20:47 1,000 MLS/HR Ondansetron HCl (Zofran Odt) 8 mg 1X ONCE 12/16/17 20:00 12/16/17 20:01 DC 12/16/17 20:56 8 MG Oxycodone/ Acetaminophen (Percocet 5/325) 2 tab 1X ONCE 12/17/17 00:00 12/17/17 00:09 DC 12/17/17 00:08 2 TAB Potassium Chloride (KCl Oral Soln) 40 meq 1X ONCE 12/16/17 23:15 12/16/17 23:16 DC 12/16/17 23:50 40 MEQ Promethazine HCl (Phenergan Im) 25 mg 1X ONCE 12/16/17 22:45 12/16/17 22:47 DC 12/16/17 22:45 25 MG Promethazine HCl (Phenergan) 25 mg STK-MED ONCE 12/16/17 22:42 12/16/17 22:43 DC See Nursing for home meds Allergies Allergies Allergies Coded Allergies Type Severity Reaction Last Updated Verified doxycycline Allergy Intermediate VOMITING 10/07/17 No Physical Exam Physical Exam Constitutional: in acute distress, non-toxic appearance. [] HENT: Normocephalic, atraumatic, bilateral external ears normal, oropharynx moist, no oral exudates, nose normal. [] Eyes: PERRLA, EOMI, conjunctiva normal, no discharge. [] Neck: Normal range of motion, no tenderness, supple, no stridor. [] Cardiovascular:Heart rate regular rhythm, no murmur [] Lungs & Thorax: Bilateral breath sounds equal apex on auscultation [] Abdomen: Bowel sounds hyperactive, soft, generalized tenderness, no masses, no pulsatile masses. [] Old scars. . Denies vaginal discharge- declines rectal and vaginal at this time. Skin: Warm, dry, no erythema, no rash. [] Back: No tenderness, no CVA tenderness. [] Extremities: No tenderness, no cyanosis, no clubbing, ROM intact, no edema. [] No psoas or obturator sign. Neurologic: Alert and oriented X 3, normal motor function, normal sensory function, no focal deficits noted. [] Psychologic: Affect anxious, judgement normal, mood normal. [] Current Patient Data Vital Signs Vital Signs Date Time Temp Pulse Resp B/P (MAP) Pulse Ox O2 Delivery O2 Flow Rate FiO2 12/17/17 00:08 18 99 Room Air Lab Results Laboratory Tests Test 12/16/17 19:17 12/16/17 20:04 12/16/17 20:47 POC Urine HCG, Qualitative hcg negative (Negative) Urine Collection Type Unknown Urine Color Yellow Urine Clarity Hazy Urine pH 6.5 Urine Specific [place] 1.025 Urine Protein 30 mg/dl (NEG-TRACE) Urine Glucose (UA) Neg mg/dL (NEG) Urine Ketones (Stick) Trace mg/dL (NEG) Urine Blood Trace (NEG) Urine Nitrite Neg (NEG) Urine Bilirubin Neg (NEG) Urine Urobilinogen Dipstick 0.2 mg/dL (0.2 mg/dL) Urine Leukocyte Esterase Neg (NEG) Urine RBC 3-5 /HPF (0-2) Urine WBC 5-10 /HPF (0-4) Urine Squamous Epithelial Cells Many /LPF Urine Bacteria Few /HPF (0-FEW) Urine Mucus Slight /LPF Urine Opiates Screen Neg (NEG) Urine Methadone Screen Neg (NEG) Urine Barbiturates Neg (NEG) Urine Phencyclidine Screen Neg (NEG) Urine Amphetamine/Methamphetamine Neg (NEG) Urine Benzodiazepines Screen Neg (NEG) Urine Cocaine Screen Neg (NEG) Urine Cannabinoids Screen Neg (NEG) Urine Ethyl Alcohol Neg (NEG) White Blood Count 6.7 x10^3/uL (4.0-11.0) Red Blood Count 3.71 x10^6/uL (3.50-5.40) Hemoglobin 11.0 g/dL (12.0-15.5) L Hematocrit 32.1 % (36.0-47.0) L Mean Corpuscular Volume 87 fL (79-100) Mean Corpuscular Hemoglobin 30 pg (25-35) Mean Corpuscular Hemoglobin Concent 34 g/dL (31-37) Red Cell Distribution Width 14.6 % (11.5-14.5) H Platelet Count 300 x10^3/uL (140-400) Neutrophils (%) (Auto) 59 % (31-73) Lymphocytes (%) (Auto) 34 % (24-48) Monocytes (%) (Auto) 6 % (0-9) Eosinophils (%) (Auto) 1 % (0-3) Basophils (%) (Auto) 1 % (0-3) Neutrophils # (Auto) 3.9 x10^3uL (1.8-7.7) Lymphocytes # (Auto) 2.2 x10^3/uL (1.0-4.8) Monocytes # (Auto) 0.4 x10^3/uL (0.0-1.1) Eosinophils # (Auto) 0.1 x10^3/uL (0.0-0.7) Basophils # (Auto) 0.0 x10^3/uL (0.0-0.2) Sodium Level 141 mmol/L (136-145) Potassium Level 3.2 mmol/L (3.5-5.1) L Chloride Level 104 mmol/L (98-107) Carbon Dioxide Level 27 mmol/L (21-32) Anion Gap 10 (6-14) Blood Urea Nitrogen 7 mg/dL (7-20) Creatinine 0.8 mg/dL (0.6-1.0) Estimated GFR (Cockcroft-Gault) 79.0 Glucose Level 137 mg/dL (70-99) H Calcium Level 8.8 mg/dL (8.5-10.1) Total Bilirubin 0.2 mg/dL (0.2-1.0) Direct Bilirubin < 0.1 mg/dL (0.0-0.2) Aspartate Amino Transferase (AST) 24 U/L (15-37) Alanine Aminotransferase (ALT) 27 U/L (14-59) Alkaline Phosphatase 114 U/L (46-116) Total Protein 7.1 g/dL (6.4-8.2) Albumin 3.3 g/dL (3.4-5.0) L Lipase 167 U/L (73-393) EKG EKG [] Radiology/Procedures Radiology/Procedures My interpretation of Abd. films shows no free air under diaphragm. Non- obstructed bowel gas pattern. Has tubal clips. Stool in colon. Course & Med Decision Making Course & Med Decision Making Pertinent Labs and Imaging studies reviewed. (See chart for details) Pt. to stay on clear fluid diet only x 48 hrs. No solids or milk products. Re-exam if no improvement. Phenergan and Benadryl as needed for nausea and vomiting up to 4 times a day. Must follow-up primary care. Must follow-up with GI- eval. colitis because of family hx. and frequent diarrhea. (No stool passed - while in ED) [] Final Impression Final Impression 1. Abdomen Pain 2. Diarrhea[] 3. Hypokalemia 4. Anemia 5. Elevated Glucose 137 Dragon Disclaimer Dragon Disclaimer This electronic medical record was generated, in whole or in part, using a voice recognition dictation system. SONNY KIMBALL MD Dec 16, 2017 19:42
[2017-12-16] MEDS ORDERED: IV RINGERS SOLUTION,LACTATED 1,000 ML IV SCH (19:44)
[2017-12-16] MEDS ORDERED: ONDANSETRON ODT 4 MG TAB.RAPDIS PO ONE (20:00)
[2017-12-16] MEDS ORDERED: FAMOTIDINE 20 MG TABLET PO ONE (20:00)
[2017-12-16 20:40] LABS: BACTERIA,URINE FEW /HPF (0-FEW); BILIRUBIN,URINE NEG (NEG); CLARITY,URINE HAZY; COLOR,URINE YELLOW; GLUCOSE,URINE NEG (NEG); NITRITE,URINE NEG (NEG); SQUAMOUS EPITHELIAL CELL,UR MANY /LPF; UROBILINOGEN,URINE 0.2 mg/dL (0.2 mg/dL)
[2017-12-16 20:43] LABS: BARBITURATES NEG (NEG); BENZODIAZEPINES NEG (NEG); CANNABINOIDS NEG (NEG); COCAINE NEG (NEG); METHADONE NEG (NEG); OPIATES NEG (NEG); PHENCYCLIDINE NEG (NEG)
[2017-12-16 20:44] LABS: AMPHETAMINE/METHAMPHETAMINE NEG (NEG)
[2017-12-16 21:13] LABS: BASO % 1 % (0-3); EOS # 0.1 x10^3/uL (0.0-0.7); EOS % 1 % (0-3); HEMATOCRIT 32.1 % (36.0-47.0); LYMPH # 2.2 x10^3/uL (1.0-4.8); LYMPH % 34 % (24-48); MEAN CORPUSCULAR HEMOGLOBIN 30 pg (25-35); MEAN CORPUSCULAR HGB CONC 34 g/dL (31-37); MEAN CORPUSCULAR VOLUME 87 fL (79-100); MONO # 0.4 x10^3/uL (0.0-1.1); MONO % 6 % (0-9); NEUT # 3.9 x10^3uL (1.8-7.7); NEUT % 59 % (31-73); PLATELET COUNT 300 x10^3/uL (140-400); RED BLOOD COUNT 3.71 x10^6/uL (3.50-5.40); RED CELL DISTRIBUTION WIDTH 14.6 % (11.5-14.5); WHITE BLOOD COUNT 6.7 x10^3/uL (4.0-11.0)
[2017-12-16 21:22] LABS: ALBUMIN 3.3 g/dL (3.4-5.0); ALK PHOS 114 U/L (46-116); ALT (SGPT) 27 U/L (14-59); ANION GAP 10 (6-14); AST (SGOT) 24 U/L (15-37); BLOOD UREA NITROGEN 7 mg/dL (7-20); CALCIUM 8.8 mg/dL (8.5-10.1); CARBON DIOXIDE 27 mmol/L (21-32); CHLORIDE 104 mmol/L (98-107); CREATININE 0.8 mg/dL (0.6-1.0); DIRECT BILIRUBIN < 0.1 mg/dL (0.0-0.2); GLUCOSE 137 mg/dL (70-99); LIPASE 167 U/L (73-393); POTASSIUM 3.2 mmol/L (3.5-5.1); SODIUM 141 mmol/L (136-145); TOTAL BILIRUBIN 0.2 mg/dL (0.2-1.0); TOTAL PROTEIN 7.1 g/dL (6.4-8.2)
--- NOTE | 2017-12-16 21:24 | RAD ---
Acute abdomen series. History: Abdominal pain. Comparison: December 06, 2017. Findings: Frontal chest radiograph. Cardiac silhouette appears within normal limits for size. No pneumoperitoneum, pneumothorax, or large pleural effusion seen. No focal infiltrate is identified. Supine and upright AP views of the abdomen. Bowel gas pattern is nonspecific, without evidence of small bowel obstruction. Bilateral tubal ligation clips are seen. Impression: No acute abnormality identified in the chest or abdomen. Electronically signed by: Chris Gil MD (12/16/2017 9:20 PM) [facility]
[2017-12-16] MEDS ORDERED: PROMETHAZINE 25 MG/ML VIAL IV ONE (22:42)
[2017-12-16] MEDS ORDERED: diphenhydrAMINE 50 MG/ML VIAL IV ONE (22:45)
[2017-12-16] MEDS ORDERED: PROMETHAZINE IM 25 MG/ML VIAL IM ONE (22:45)
[2017-12-16] MEDS ORDERED: PROM25SU32 RC (23:04)
[2017-12-16] MEDS ORDERED: DIPH25CA58 PO (23:04)
[2017-12-16] MEDS ORDERED: HYDR-79 PO (23:04)
[2017-12-16] MEDS ORDERED: POTASSIUM CHLORIDE 20 MEQ/15 ML ORAL LIQUID. PO ONE (23:15)
[2017-12-16] MEDS ORDERED: KETOROLAC 30 MG/ML VIAL. IV ONE (23:55)
[2017-12-16] MEDS ORDERED: OXYC-323 PO (23:56)
[2017-12-17] MEDS ORDERED: oxyCODONE/APAP 5/325 1 TAB TABLET PO ONE
[2017-12-17 00:05] VITALS: BP 142/91
== END 2017-12-17 00:08 | disposition home or self-care (01) ==
LOC: ER 19:39
DX: E87.6 Hypokalemia (principal); D64.9 Anemia, unspecified; R73.02 Impaired glucose tolerance (oral); K21.9 Gastro-esophageal reflux disease without esophagitis; E78.00 Pure hypercholesterolemia, unspecified; Z98.51 Tubal ligation status; Z88.1 Allergy status to other antibiotic agents
CPT/HCPCS: 36415; 74022; 80048; 80076; 80307; 81001; 81025; 83690; 85025; 87086; 96361; 96372; 96374; 99285; J1200; J2550; J7120; Q0162; G0479

== ENCOUNTER 2018-03-12 23:02 | Emergency (ER) | payer OTHER ==
[~2018-03-12] VITALS: Ht 154.9 cm; Wt 79.4 kg
[~2018-03-12 23:02] MED LIST changes: +DIPH25CA58 PO; +HYDR-79 PO; +OXYC-323 PO; +PROM25SU32 RC
--- NOTE | 2018-03-12 23:37 | PHYS DOC ---
Past History Past Medical History: Anxiety, Depression, GERD, High Cholesterol Past Surgical History: , Tonsillectomy, Tubal ligation Alcohol Use: None Drug Use: None Adult General Chief Complaint Chief Complaint: ABDOMINAL PAIN HPI HPI 42-year-old female presents with 4 day history of epigastric abdominal pain. The patient states when pain began was a deep cramping sensation that is intermittent. It would come and go completely. Today, the patient states that the pain has become constant. It is worse with deep inspiration. She denies cough. She denies any association with food. Nothing seems to make it better or worse. Patient does not drink alcohol. Her only abdominal surgeries her C- section, inguinal hernia (one month ago), and a periumbilical hernia. She denies fever or chills. She had one episode of diarrhea 2 days ago. She also had one episode of vomiting that same day. She denies having difficulty with constipation. She takes Protonix daily for GERD. Review of Systems Review of Systems Constitutional: Denies fever or chills [] Eyes: Denies change in visual acuity, redness, or eye pain [] HENT: Denies nasal congestion or sore throat [] Respiratory: Denies cough or shortness of breath [] Cardiovascular: No additional information not addressed in HPI [] GI: Epigastric abdominal pain[] : Denies dysuria or hematuria [] Musculoskeletal: Denies back pain or joint pain [] Integument: Denies rash or skin lesions [] Neurologic: Denies headache, focal weakness or sensory changes [] Endocrine: Denies polyuria or polydipsia [] All other systems were reviewed and found to be within normal limits, except as documented in this note. Current Medications Current Medications Current Medications Medications (Trade) Dose Ordered Sig/Jerrod Start Time Stop Time Status Last Admin Dose Admin Ketorolac Tromethamine (Toradol 30mg Vial) 30 mg 1X ONCE 03/12/18 23:45 03/12/18 23:46 Sodium Chloride 1,000 ml @ 1,000 mls/hr 1X ONCE 03/12/18 23:45 03/13/18 00:44 Allergies Allergies Allergies Coded Allergies Type Severity Reaction Last Updated Verified doxycycline Allergy Intermediate VOMITING 10/07/17 No Physical Exam Physical Exam Constitutional: Well developed, well nourished, no acute distress, non-toxic appearance. [] HENT: Normocephalic, atraumatic, bilateral external ears normal, oropharynx moist, no oral exudates, nose normal. [] Eyes: PERRLA, EOMI, conjunctiva normal, no discharge. [] Neck: Normal range of motion, no tenderness, supple, no stridor. [] Cardiovascular:Heart rate regular rhythm, no murmur [] Lungs & Thorax: Bilateral breath sounds clear to auscultation [] Abdomen: Epigastric abdominal pain with palpation[] Skin: Warm, dry, no erythema, no rash. [] Back: No tenderness, no CVA tenderness. [] Extremities: No tenderness, no cyanosis, no clubbing, ROM intact, no edema. [] Neurologic: Alert and oriented X 3, normal motor function, normal sensory function, no focal deficits noted. [] Psychologic: Affect normal, judgement normal, mood normal. [] Current Patient Data Vital Signs Vital Signs Date Time Temp Pulse Resp B/P (MAP) Pulse Ox O2 Delivery O2 Flow Rate FiO2 03/12/18 23:10 98.2 84 18 98 Room Air EKG EKG [] Radiology/Procedures Radiology/Procedures [] Impressions: Preliminary interpretation: KUB shows moderate stool burden, no air-fluid levels. Chest x-ray shows no pleural effusions or focal consolidations. Course & Med Decision Making Course & Med Decision Making Pertinent Labs and Imaging studies reviewed. (See chart for details) The patient's labs are unremarkable. Her chest x-ray is unremarkable. Her KUB shows moderate stool burden no signs of obstruction. Her urine is unremarkable. We'll give her a GI cocktail to see if this helps. The GI cocktail may have helped slightly. I gave the patient her results and they were reassuring to her. I will give her a [place] 5/325 and a prescription for 10 more home. I have advised that she try a bowel cleanout if this helps. If the pain persists, she can seek an outpatient gallbladder workup. The patient is okay with this plan. She is comfortable being discharged to home. The patient is stable for discharge at this time. [] Dragon Disclaimer Dragon Disclaimer This electronic medical record was generated, in whole or in part, using a voice recognition dictation system. Departure Departure: Referrals: LANA BRANDT (PCP) MARIE LOVE DO Mar 12, 2018 23:37
[2018-03-12 23:43] LABS: BASO # 0.1 x10^3/uL (0.0-0.2); BASO % 1 % (0-3); EOS # 0.1 x10^3/uL (0.0-0.7); EOS % 2 % (0-3); HEMATOCRIT 33.7 % (36.0-47.0); HEMOGLOBIN 11.3 g/dL (12.0-15.5); LYMPH # 3.1 x10^3/uL (1.0-4.8); LYMPH % 38 % (24-48); MEAN CORPUSCULAR HEMOGLOBIN 29 pg (25-35); MEAN CORPUSCULAR HGB CONC 34 g/dL (31-37); MEAN CORPUSCULAR VOLUME 86 fL (79-100); MONO # 0.4 x10^3/uL (0.0-1.1); MONO % 5 % (0-9); NEUT # 4.5 x10^3uL (1.8-7.7); NEUT % 55 % (31-73); PLATELET COUNT 379 x10^3/uL (140-400); RED CELL DISTRIBUTION WIDTH 15.1 % (11.5-14.5); WHITE BLOOD COUNT 8.2 x10^3/uL (4.0-11.0)
[2018-03-12] MEDS ORDERED: IV NORMAL SALINE 1,000ML 1,000 ML IV ONE (23:45)
[2018-03-12] MEDS: KETOROLAC 30 MG/ML VIAL. IV ONE (23:45)
[2018-03-12 23:48] LABS: BACTERIA,URINE FEW /HPF (0-FEW); BILIRUBIN,URINE NEG (NEG); CLARITY,URINE CLEAR; COLOR,URINE YELLOW; GLUCOSE,URINE NEG (NEG); NITRITE,URINE NEG (NEG); RBC,URINE OCC /HPF (0-2); SQUAMOUS EPITHELIAL CELL,UR OCC /LPF; UROBILINOGEN,URINE 0.2 mg/dL (0.2 mg/dL)
[2018-03-12 23:55] LABS: ALBUMIN 3.7 g/dL (3.4-5.0); CALCIUM 8.8 mg/dL (8.5-10.1); CREATININE 1.1 mg/dL (0.6-1.0); GFR 54.7; POTASSIUM 3.2 mmol/L (3.5-5.1); TOTAL BILIRUBIN 0.3 mg/dL (0.2-1.0); TOTAL PROTEIN 7.5 g/dL (6.4-8.2)
[2018-03-13] MEDS: KETOROLAC 30 MG/ML VIAL. IV ONE (00:09)
[2018-03-13] MEDS ORDERED: LIDO:MAALOX 1:1 20 ML SINGLE DOSE. PO ONE (00:30)
[2018-03-13] MEDS ORDERED: HYDR-971 PO (00:50)
[2018-03-13] MEDS ORDERED: HYDROcodone/APAP 5/325MG 1 TAB TABLET PO ONE (01:00)
[2018-03-13 01:02] VITALS: BP 137/67
--- NOTE | 2018-03-13 08:10 | RAD ---
Chest radiograph 03/12/2018 11:37 PM Abdominal radiograph INDICATION: Epigastric abdominal pain COMPARISON: October 06, 2017 chest radiograph TECHNIQUE: Frontal and lateral views of the chest are provided. Single supine view of the abdomen is provided. FINDINGS: The cardiomediastinal silhouette is within normal limits. There are no pleural effusions. There is no pulmonary vascular congestion. There is no pneumothorax. The lungs are clear. Suspect tubal ligation clips within the pelvis. There are no dilated loops of small or large bowel. There is no free intraperitoneal air. No evidence for organomegaly. No suspicious calcifications are identified. No significant osseous abnormality is identified. IMPRESSION: No acute cardiopulmonary process. Nonobstructive bowel gas pattern. Electronically signed by: Chana Ma MD (03/13/2018 8:07 AM) [id number]
== END 2018-03-13 01:05 | disposition home or self-care (01) ==
LOC: ER 23:02
DX: R10.13 Epigastric pain (principal); R19.7 Diarrhea, unspecified; R11.10 Vomiting, unspecified; F41.9 Anxiety disorder, unspecified; F32.9 Major depressive disorder, single episode, unspecified; K21.9 Gastro-esophageal reflux disease without esophagitis; E78.00 Pure hypercholesterolemia, unspecified; Z98.890 Other specified postprocedural states; Z98.51 Tubal ligation status; Z88.1 Allergy status to other antibiotic agents
CPT/HCPCS: 36415; 71046; 74018; 80053; 81001; 83690; 85025; 87086; 99285; J1885; J7030

== ENCOUNTER 2018-04-02 20:37 | Emergency (ER) | payer OTHER ==
[~2018-04-02] VITALS: Ht 165.1 cm; Wt 76.7 kg
[2018-04-02] MEDS ORDERED: ASPIRIN 325 MG TABLET PO ONE (21:15)
[2018-04-02] MEDS ORDERED: IOHEXOL 300 MG/ML 75 ML VIAL. IV ONE (21:15)
[2018-04-02] MEDS ORDERED: PANTOPRAZOLE IV 40 MG VIAL. IVP ONE (21:15)
[2018-04-02] MEDS ORDERED: IV NORMAL SALINE 1,000ML 1,000 ML IV ONE (21:15)
[2018-04-02 21:38] LABS: BASO # 0.1 x10^3/uL (0.0-0.2); BASO % 1 % (0-3); EOS # 0.1 x10^3/uL (0.0-0.7); EOS % 1 % (0-3); HEMATOCRIT 30.3 % (36.0-47.0); HEMOGLOBIN 10.4 g/dL (12.0-15.5); LYMPH # 2.2 x10^3/uL (1.0-4.8); LYMPH % 22 % (24-48); MEAN CORPUSCULAR HEMOGLOBIN 29 pg (25-35); MEAN CORPUSCULAR HGB CONC 34 g/dL (31-37); MEAN CORPUSCULAR VOLUME 85 fL (79-100); MONO # 0.4 x10^3/uL (0.0-1.1); MONO % 4 % (0-9); NEUT # 7.4 x10^3uL (1.8-7.7); NEUT % 73 % (31-73); PLATELET COUNT 297 x10^3/uL (140-400); RED BLOOD COUNT 3.57 x10^6/uL (3.50-5.40); RED CELL DISTRIBUTION WIDTH 15.1 % (11.5-14.5); WHITE BLOOD COUNT 10.1 x10^3/uL (4.0-11.0)
[2018-04-02] MEDS ORDERED: METOCLOPRAMIDE HCL 10 MG/2 ML VIAL. IV ONE (21:45)
[2018-04-02] MEDS ORDERED: diphenhydrAMINE 50 MG/ML VIAL IVP ONE (21:45)
[2018-04-02 21:48] LABS: BACTERIA,URINE 0 /HPF (0-FEW); BILIRUBIN,URINE NEG (NEG); CLARITY,URINE CLEAR; COLOR,URINE YELLOW; GLUCOSE,URINE NEG (NEG); NITRITE,URINE NEG (NEG); RBC,URINE 0 /HPF (0-2); SQUAMOUS EPITHELIAL CELL,UR MANY /LPF; UROBILINOGEN,URINE 0.2 mg/dL (0.2 mg/dL)
[2018-04-02 22:04] LABS: ALBUMIN 3.5 g/dL (3.4-5.0); ALBUMIN/GLOBULIN RATIO 0.9 (1.0-1.7); CALCIUM 8.8 mg/dL (8.5-10.1); CREATININE 0.9 mg/dL (0.6-1.0); POTASSIUM 3.3 mmol/L (3.5-5.1); TOTAL BILIRUBIN 0.4 mg/dL (0.2-1.0); TOTAL PROTEIN 7.3 g/dL (6.4-8.2)
--- NOTE | 2018-04-02 23:12 | PHYS DOC ---
Past History Past Medical History: Anxiety, Depression, GERD, High Cholesterol, Other Past Surgical History: , Tonsillectomy, Other Alcohol Use: None Drug Use: None Adult General Chief Complaint Chief Complaint: GI PROBLEM HPI HPI 42-year-old female presents with epigastric abdominal pain and substernal chest pain which is been ongoing today. Patient does have a history of gastritis as well as factor V Leiden disorder. Patient reports she takes Coumadin. Patient reports having a near syncopal episode at [facility] today due to her stomach hurting. Denies known trauma. Denies leg swelling or calf tenderness. Cardiac risk factors include smoking, high cholesterol, and family history. Denies diaphoresis or nausea. Patient reports she did see her family doctor today who gave her some medication thinking it might be secondary to her chronic stomach issues. Reports has had problems for the past several months in which she can't eat anything past a certain time of day. Denies . Review of Systems Review of Systems Constitutional: Denies fever or chills; reports generalized malaise Eyes: Denies change in visual acuity, redness, or eye pain [] HENT: Denies nasal congestion or sore throat [] Respiratory: Denies cough or shortness of breath [] Cardiovascular: Reports substernal chest pain, denies palpitations GI: Reports abdominal pain; denies nausea, vomiting, or diarrhea [] : Denies dysuria or hematuria [] Musculoskeletal: Denies back pain or calf tenderness Integument: Denies rash or skin lesions [] Neurologic: Denies headache, focal weakness or sensory changes [] Complete systems were reviewed and found to be within normal limits, except as documented in this note. Current Medications Current Medications Current Medications Medications (Trade) Dose Ordered Sig/[facility] Start Time Stop Time Status Last Admin Dose Admin Aspirin (Owen Aspirin) 325 mg 1X ONCE 04/02/18 21:15 04/02/18 21:16 DC 04/02/18 21:50 325 MG Diphenhydramine HCl (Benadryl) 25 mg 1X ONCE 04/02/18 21:45 04/02/18 21:55 DC 04/02/18 21:50 25 MG Iohexol (Omnipaque 300 Mg/ml) 75 ml 1X ONCE 04/02/18 21:15 04/02/18 21:16 DC 04/02/18 22:24 75 ML Metoclopramide HCl (Reglan Vial) 10 mg 1X ONCE 04/02/18 21:45 04/02/18 21:55 DC 04/02/18 21:49 10 MG Pantoprazole Sodium (Protonix Vial) 40 mg 1X ONCE 04/02/18 21:15 04/02/18 21:16 DC 04/02/18 21:50 40 MG Sodium Chloride 1,000 ml @ 1,000 mls/hr 1X ONCE 04/02/18 21:15 04/02/18 22:14 DC 04/02/18 21:49 1,000 MLS/HR Allergies Allergies Allergies Coded Allergies Type Severity Reaction Last Updated Verified clindamycin Allergy Severe 04/02/18 Yes doxycycline Allergy Intermediate VOMITING 04/02/18 No Physical Exam Physical Exam Constitutional: Well developed, well nourished, no acute distress, non-toxic appearance. [] HENT: Normocephalic, atraumatic, oropharynx moist Eyes: PERRL, EOMI, conjunctiva normal, no discharge. [] Neck: Normal range of motion, no tenderness, supple, no meningeal signs Cardiovascular: Heart rate regular rhythm, no murmur [] Lungs & Thorax: Bilateral breath sounds clear to auscultation, no wheezes rhonchi or rails Abdomen: Soft, epigastric tenderness Skin: Warm, dry, no erythema, no rash. [] Back: No tenderness, no CVA tenderness. [] Extremities: No tenderness, ROM intact, no edema. [] Neurologic: Alert and oriented X 3, normal motor function, normal sensory function, no focal deficits noted. [] Psychologic: Affect normal, judgement normal, mood normal. [] Current Patient Data Vital Signs Vital Signs Date Time Temp Pulse Resp B/P (MAP) Pulse Ox O2 Delivery O2 Flow Rate FiO2 04/02/18 20:48 98.1 76 18 98 Room Air Lab Results Laboratory Tests Test 04/02/18 21:15 04/02/18 21:22 White Blood Count 10.1 x10^3/uL (4.0-11.0) Red Blood Count 3.57 x10^6/uL (3.50-5.40) Hemoglobin 10.4 g/dL (12.0-15.5) L Hematocrit 30.3 % (36.0-47.0) L Mean Corpuscular Volume 85 fL (79-100) Mean Corpuscular Hemoglobin 29 pg (25-35) Mean Corpuscular Hemoglobin Concent 34 g/dL (31-37) Red Cell Distribution Width 15.1 % (11.5-14.5) H Platelet Count 297 x10^3/uL (140-400) Neutrophils (%) (Auto) 73 % (31-73) Lymphocytes (%) (Auto) 22 % (24-48) L Monocytes (%) (Auto) 4 % (0-9) Eosinophils (%) (Auto) 1 % (0-3) Basophils (%) (Auto) 1 % (0-3) Neutrophils # (Auto) 7.4 x10^3uL (1.8-7.7) Lymphocytes # (Auto) 2.2 x10^3/uL (1.0-4.8) Monocytes # (Auto) 0.4 x10^3/uL (0.0-1.1) Eosinophils # (Auto) 0.1 x10^3/uL (0.0-0.7) Basophils # (Auto) 0.1 x10^3/uL (0.0-0.2) Prothrombin Time 19.1 SEC (9.4-11.4) H Prothrombin Time INR 2.0 (0.9-1.1) H PTT 35 SEC (23-33) H Urine Collection Type Unknown Urine Color Yellow Urine Clarity Clear Urine pH 6.0 Urine Specific [place] 1.015 Urine Protein Neg (NEG-TRACE) Urine Glucose (UA) Neg mg/dL (NEG) Urine Ketones (Stick) Neg mg/dL (NEG) Urine Blood Trace (NEG) Urine Nitrite Neg (NEG) Urine Bilirubin Neg (NEG) Urine Urobilinogen Dipstick 0.2 mg/dL (0.2 mg/dL) Urine Leukocyte Esterase Small (NEG) Urine RBC 0 /HPF (0-2) Urine WBC 5-10 /HPF (0-4) Urine Squamous Epithelial Cells Many /LPF Urine Transitional Epithelial Cells Occ /LPF Urine Bacteria 0 /HPF (0-FEW) Sodium Level 141 mmol/L (136-145) Potassium Level 3.3 mmol/L (3.5-5.1) L Chloride Level 105 mmol/L (98-107) Carbon Dioxide Level 30 mmol/L (21-32) Anion Gap 6 (6-14) Blood Urea Nitrogen 9 mg/dL (7-20) Creatinine 0.9 mg/dL (0.6-1.0) Estimated GFR (Cockcroft-Gault) 69.0 BUN/Creatinine Ratio 10 (6-20) Glucose Level 98 mg/dL (70-99) Calcium Level 8.8 mg/dL (8.5-10.1) Magnesium Level 2.0 mg/dL (1.8-2.4) Total Bilirubin 0.4 mg/dL (0.2-1.0) Aspartate Amino Transferase (AST) 18 U/L (15-37) Alanine Aminotransferase (ALT) 27 U/L (14-59) Alkaline Phosphatase 107 U/L (46-116) Creatine Kinase 194 U/L (26-192) H Creatine Kinase MB (Mass) 0.8 ng/mL (0.0-3.6) Creatine Kinase MB Relative Index 0.4 % (0-4) Troponin I Quantitative < 0.017 ng/mL (0-0.055) QI-Ifv-N-Type Natriuretic Peptide 89 pg/mL (0-124) Total Protein 7.3 g/dL (6.4-8.2) Albumin 3.5 g/dL (3.4-5.0) Albumin/Globulin Ratio 0.9 (1.0-1.7) L Lipase 189 U/L (73-393) POC Urine HCG, Qualitative hcg negative (Negative) EKG EKG @2108 NSR at 72bpm, NO ST elevation, nonspecific Q wave in II-aVF and V4-V6 Radiology/Procedures Radiology/Procedures PROCEDURE: CT ANGIO CHEST ABD PELVIS CTA scan of the Chest with Contrast (Pulmonary Embolism protocol) 04/02/2018 Clinical History: Shortness of breath and chest pain. Technique: After the intravenous administration of 75 cc of Omnipaque 300, contiguous, 0.625 mm axial sections were obtained through the chest. 2 mm axial and 3D MIP coronal and sagittal reconstructed images were obtained. One or more of the following individualized dose reduction techniques were utilized for this study: 1. Automated exposure control. 2. Adjustment of the mA and/or kV according to patient size. 3. Use of iterative reconstruction technique. Findings: No filling defect is seen within the major branches of either pulmonary artery. There is no CT evidence of pulmonary embolism. The heart is mildly enlarged. The thoracic aorta tapers normally. Minimal dependent subsegmental atelectasis is seen involving both lungs. No area of consolidation, pleural effusion or pneumothorax is seen. Impression: There is no CT evidence of pulmonary embolism. CT scan of the abdomen and pelvis with contrast 04/02/2018 CLINICAL HISTORY: Abdominal pain. TECHNIQUE: After the intravenous administration of 75 cc of Omnipaque 300, contiguous, 3 mm axial sections were obtained through the abdomen and pelvis. One or more of the following individualized dose reduction techniques were utilized for this study: 1. Automated exposure control. 2. Adjustment of the mA and/or kV according to patient size. 3. Use of iterative reconstruction technique. FINDINGS: Images through the lung bases demonstrate mild cardiomegaly. Minimal dependent subsegmental atelectasis is seen bilaterally. The liver parenchyma has a decreased attenuation consistent with mild fatty infiltration. The spleen, pancreas, adrenal glands and kidneys are within normal limits. The abdominal aorta tapers normally. The gallbladder is well-distended. No free fluid or free air is seen within the abdomen. There is no evidence of bowel obstruction. Air and stool seen throughout the colon. Images through the pelvis demonstrate the urinary bladder distended with urine. Tubal ligation bands are seen bilaterally. No free fluid is seen. An area of scarring is seen within the right inguinal region. Minimal S-shaped curvature of the thoracolumbar spine is seen. Degenerative changes are seen involving lower thoracic and throughout the lumbar spine. IMPRESSION: No acute abnormality is seen. Electronically signed by: Nimesh Bowen MD (04/02/2018 11:06 PM) [facility] Course & Med Decision Making Course & Med Decision Making Pertinent Labs and Imaging studies reviewed. (See chart for details) Patient presents with epigastric abdominal pain with radiation substernally. Patient does have cardiac risk factors including family history and high cholesterol. HEART score 2. EKG stable. Labs obtained and posted to chart. LFT/lipase WNL. Troponin x 2 negative[address] chest and CT abd/pelvis without acute process. Symptomatic treatment provided with interval improvement of symptoms. Patient stable for discharge with outpatient follow-up with PCP/GI. Discussed findings and plan with patient and family, who acknowledge understanding and agreement. Dragon Disclaimer Dragon Disclaimer This electronic medical record was generated, in whole or in part, using a voice recognition dictation system. Departure Departure: Impression: Primary Impression: Epigastric abdominal pain Additional Impression: Chest pain Disposition: 01 HOME, SELF-CARE Condition: IMPROVED Referrals: LANA BRANDT (PCP) CARLOTTA MONZON MD Patient Instructions: Abdominal Pain, Chest Pain (Nonspecific), [id number] Scripts Hyoscyamine Sulfate (LEVSIN-SL) 0.125 Mg Tab.subl 1 TAB SL PRN Q6HRS PRN for PAIN, #20 TAB 0 Refills Prov: RENA DANG DO 04/03/18 Prochlorperazine Maleate (PROCHLORPERAZINE MALEATE) 10 Mg Tablet 1 TAB PO Q6HRS PRN for NAUSEA, #14 TAB 0 Refills Prov: RENA DANG DO 04/03/18 Famotidine (PEPCID) 20 Mg Tablet 1 TAB PO BID PRN for NAUSEA, #14 TAB 0 Refills Prov: RENA DANG DO 04/03/18 Problem Qualifiers Additional Impression: Chest pain Chest pain type: unspecified Qualified Codes: R07.9 - Chest pain, unspecified RENA DANG DO Apr 02, 2018 23:12
[2018-04-03] MEDS ORDERED: PROC10TA2 PO (00:13)
[2018-04-03] MEDS ORDERED: FAMO-63 PO (00:13)
[2018-04-03] MEDS ORDERED: HYOS0.1265 SL (00:21)
[2018-04-03 00:30] VITALS: BP 145/90
--- NOTE | 2018-04-03 04:08 | EKG ---
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
== END 2018-04-03 00:25 | disposition home or self-care (01) ==
LOC: ER 20:37
DX: R10.13 Epigastric pain (principal); R07.2 Precordial pain; R55 Syncope and collapse; F41.9 Anxiety disorder, unspecified; F32.9 Major depressive disorder, single episode, unspecified; K21.9 Gastro-esophageal reflux disease without esophagitis; E78.00 Pure hypercholesterolemia, unspecified; Z98.890 Other specified postprocedural states; Z88.1 Allergy status to other antibiotic agents
CPT/HCPCS: 36415; 71275; 74174; 80053; 81001; 81025; 82553; 83690; 83735; 83880; 84484; 85025; 85610; 85730; 87086; 93005; 96361; 96374; 96375; 99285; C9113; J1200; J2765; Q9967; J7030

== ENCOUNTER → 2018-04-17 | Outpatient (CLI) | payer OTHER ==
[2018-04-03 00:30] VITALS: BP 145/90
[~2018-04-17] MED LIST changes: +FAMO-63 PO; +HYOS0.1265 SL; +PROC10TA2 PO
--- NOTE | 2018-04-17 13:27 | RAD ---
EXAM: Nuclear gastric emptying scan. HISTORY: Pain, nausea and vomiting. COMPARISON: None. TECHNIQUE: Serial static images were obtained over the stomach following oral administration of 2 mCi of 99m-Tc sulfur colloid. FINDINGS: The stomach empties into the small bowel without evidence of reflux in the area of the esophagus. There is 80.8% retained tracer activity within the stomach at one hour, 47.9% retained tracer activity within the stomach at 2 hours, 21.1% retained tracer activity within the stomach at 3 hours, and 7.8% retained tracer activity within the stomach at 4 hours. IMPRESSION: Delayed gastric emptying. The gastric emptying half-time is nearly 2 hours. Electronically signed by: Hollie Schwarz MD (04/17/2018 1:24 PM) [facility]
== END | disposition home or self-care (01) ==
LOC: NM 07:53
PROVIDERS: ATTEND Internal Medicine Gastroenterology
DX: R10.13 Epigastric pain (principal); R11.0 Nausea; R11.10 Vomiting, unspecified
CPT/HCPCS: 78264; A9541

== ENCOUNTER 2018-06-02 12:49 | Emergency (ER) | payer OTHER ==
[~2018-06-02] VITALS: Ht 162.6 cm; Wt 81.6 kg
[~2018-06-02 12:49] MED LIST changes: +HYDR-1179 PO; +HYDR-3165 PO; -HYDR-79 PO; -HYDR-971 PO; -OXYC-323 PO; +OXYC1TAB15 PO
[2018-06-02] MEDS ORDERED: IV NORMAL SALINE 1,000ML 1,000 ML IV SCH (13:10)
[2018-06-02 13:24] LABS: BASO # 0.1 x10^3/uL (0.0-0.2); BASO % 1 % (0-3); EOS # 0.1 x10^3/uL (0.0-0.7); EOS % 1 % (0-3); HEMATOCRIT 33.8 % (36.0-47.0); HEMOGLOBIN 11.1 g/dL (12.0-15.5); LYMPH % 30 % (24-48); MEAN CORPUSCULAR HEMOGLOBIN 28 pg (25-35); MEAN CORPUSCULAR HGB CONC 33 g/dL (31-37); MEAN CORPUSCULAR VOLUME 84 fL (79-100); MONO # 0.3 x10^3/uL (0.0-1.1); MONO % 5 % (0-9); NEUT # 4.1 x10^3uL (1.8-7.7); NEUT % 63 % (31-73); PLATELET COUNT 391 x10^3/uL (140-400); RED BLOOD COUNT 4.03 x10^6/uL (3.50-5.40); RED CELL DISTRIBUTION WIDTH 15.4 % (11.5-14.5); WHITE BLOOD COUNT 6.6 x10^3/uL (4.0-11.0)
[2018-06-02 13:41] LABS: ALBUMIN 3.9 g/dL (3.4-5.0); CALCIUM 9.2 mg/dL (8.5-10.1); CREATININE 0.9 mg/dL (0.6-1.0); POTASSIUM 3.7 mmol/L (3.5-5.1); TOTAL BILIRUBIN 0.3 mg/dL (0.2-1.0)
[2018-06-02] MEDS ORDERED: FAMOTIDINE 20 MG/2 ML VIAL IVP ONE (13:45)
[2018-06-02] MEDS ORDERED: ONDANSETRON PF 4 MG/2 ML VIAL. IV ONE (13:45)
[2018-06-02] MEDS ORDERED: ORPHENADRINE CITRATE 60 MG/2 ML VIAL. IV ONE (14:30)
[2018-06-02] MEDS ORDERED: METOCLOPRAMIDE HCL 10 MG/2 ML VIAL. IV ONE (14:30)
--- NOTE | 2018-06-02 14:54 | PHYS DOC ---
Past History Past Medical History: Anxiety, Depression, GERD, High Cholesterol, Other Past Surgical History: , Tonsillectomy, Other Smoking: Non-smoker Alcohol Use: None Drug Use: None Adult General Chief Complaint Chief Complaint: ABDOMINAL PAIN HPI HPI Patient is a 42 year old female with history of frequent emergency room visits who presents with complaining of sudden onset of right upper quadrant pain for the last 2 hours as a sharp pain without radiation and rated her pain 7/10. Patient complaining of 2 episodes of vomiting and constant nausea. Patient complaining of chronic constipation without urinary symptoms, fever and chills, chest pain, shortness of breath. Patient states she had previous episodes of epigastric pain but never had upper quadrant pain. Patient denies history of cholecystectomy. Review of Systems Review of Systems Constitutional: Denies fever or chills [] Eyes: Denies change in visual acuity, redness, or eye pain [] HENT: Denies nasal congestion or sore throat [] Respiratory: Denies cough or shortness of breath [] Cardiovascular: No additional information not addressed in HPI [] GI: Reports abdominal pain, nausea, vomiting, constipation, denies bloody stools or diarrhea [] : Denies dysuria or hematuria [] Musculoskeletal: Denies back pain or joint pain [] Integument: Denies rash or skin lesions [] Neurologic: Denies headache, focal weakness or sensory changes [] Endocrine: Denies polyuria or polydipsia [] All other systems were reviewed and found to be within normal limits, except as documented in this note. Current Medications Current Medications Current Medications Medications (Trade) Dose Ordered Sig/[facility] Start Time Stop Time Status Last Admin Dose Admin Famotidine (Pepcid Vial) 20 mg 1X ONCE 06/02/18 13:45 06/02/18 13:46 DC 06/02/18 13:29 20 MG Metoclopramide HCl (Reglan Vial) 10 mg 1X ONCE 06/02/18 14:30 06/02/18 14:31 DC Ondansetron HCl (Zofran) 4 mg 1X ONCE 06/02/18 13:45 06/02/18 13:46 DC 06/02/18 13:29 4 MG Orphenadrine Citrate (Norflex) 60 mg 1X ONCE 06/02/18 14:30 06/02/18 14:31 DC Sodium Chloride 1,000 ml @ 1,000 mls/hr Q1H 06/02/18 13:10 06/02/18 14:09 DC 06/02/18 13:29 1,000 MLS/HR Allergies Allergies Allergies Coded Allergies Type Severity Reaction Last Updated Verified clindamycin Allergy Severe 04/02/18 Yes doxycycline Allergy Intermediate VOMITING 04/02/18 No Physical Exam Physical Exam Constitutional: Well nourished, no acute distress, non-toxic appearance. [] HENT: Normocephalic, atraumatic, oropharynx moist, no oral exudates, nose normal. [] Eyes: PERRLA, EOMI, conjunctiva normal, no discharge. [] Neck: Normal range of motion, no tenderness, supple, no stridor. [] Cardiovascular:Heart rate regular rhythm, no murmur [] Lungs & Thorax: Bilateral breath sounds clear to auscultation [] Abdomen: Bowel sounds normal, soft, right upper quadrant guarding, no tenderness , no masses, no pulsatile masses. [] Skin: Warm, dry, no erythema, no rash. [] Back: No tenderness, no CVA tenderness. [] Extremities: No tenderness, no cyanosis, no clubbing, ROM intact, no edema. [] Neurologic: Alert and oriented X 3, normal motor function, normal sensory function, no focal deficits noted. [] Psychologic: Affect depressed, judgement normal, mood normal. [] Current Patient Data Vital Signs Vital Signs Date Time Temp Pulse Resp B/P (MAP) Pulse Ox O2 Delivery O2 Flow Rate FiO2 06/02/18 12:50 97.9 84 20 99 Room Air Lab Results Laboratory Tests Test 06/02/18 13:13 White Blood Count 6.6 x10^3/uL (4.0-11.0) Red Blood Count 4.03 x10^6/uL (3.50-5.40) Hemoglobin 11.1 g/dL (12.0-15.5) L Hematocrit 33.8 % (36.0-47.0) L Mean Corpuscular Volume 84 fL (79-100) Mean Corpuscular Hemoglobin 28 pg (25-35) Mean Corpuscular Hemoglobin Concent 33 g/dL (31-37) Red Cell Distribution Width 15.4 % (11.5-14.5) H Platelet Count 391 x10^3/uL (140-400) Neutrophils (%) (Auto) 63 % (31-73) Lymphocytes (%) (Auto) 30 % (24-48) Monocytes (%) (Auto) 5 % (0-9) Eosinophils (%) (Auto) 1 % (0-3) Basophils (%) (Auto) 1 % (0-3) Neutrophils # (Auto) 4.1 x10^3uL (1.8-7.7) Lymphocytes # (Auto) 2.0 x10^3/uL (1.0-4.8) Monocytes # (Auto) 0.3 x10^3/uL (0.0-1.1) Eosinophils # (Auto) 0.1 x10^3/uL (0.0-0.7) Basophils # (Auto) 0.1 x10^3/uL (0.0-0.2) Prothrombin Time 25.5 SEC (9.4-11.4) H Prothrombin Time INR 2.7 (0.9-1.1) H PTT 36 SEC (23-33) H Sodium Level 140 mmol/L (136-145) Potassium Level 3.7 mmol/L (3.5-5.1) Chloride Level 102 mmol/L (98-107) Carbon Dioxide Level 29 mmol/L (21-32) Anion Gap 9 (6-14) Blood Urea Nitrogen 11 mg/dL (7-20) Creatinine 0.9 mg/dL (0.6-1.0) Estimated GFR (Cockcroft-Gault) 69.0 BUN/Creatinine Ratio 12 (6-20) Glucose Level 111 mg/dL (70-99) H Calcium Level 9.2 mg/dL (8.5-10.1) Total Bilirubin 0.3 mg/dL (0.2-1.0) Aspartate Amino Transferase (AST) 26 U/L (15-37) Alanine Aminotransferase (ALT) 28 U/L (14-59) Alkaline Phosphatase 118 U/L (46-116) H Troponin I Quantitative < 0.017 ng/mL (0-0.055) Total Protein 8.0 g/dL (6.4-8.2) Albumin 3.9 g/dL (3.4-5.0) Albumin/Globulin Ratio 1.0 (1.0-1.7) Lipase 173 U/L (73-393) EKG EKG [] Radiology/Procedures Radiology/Procedures [][address] [id number] IMAGING REPORT Signed PATIENT: TERI KAT ACCOUNT: [id number] : 1975 LOCATION: ER AGE: 42 SEX: F EXAM STATUS: REG ER ORD. PHYSICIAN: ELI LOVE MD REASON: abd pain PROCEDURE: ABDOMEN LTD Limited abdominal ultrasound History: ABD PAIN . Findings: Aorta: The visualized segment is patent Inferior vena cava: Patent Pancreas: Unremarkable Liver: Mildly enlarged, about 19.6 cm cephalocaudal. Increased echogenicity compatible with steatosis. Gallbladder: No evidence of cholelithiasis, gallbladder wall thickening or pericholecystic fluid. Bile ducts: No evidence of dilatation Right kidney: 10.1 cm length. No evidence of hydronephrosis. Impression: 1. Mild hepatomegaly with steatosis. 2. No other significant sonographic abnormality. Electronically signed by: Chris Arredondo MD (06/02/2018 3:23 PM) [facility] DICTATED AND SIGNED BY: CHRIS ARREDONDO MD DATE: 06/02/18 9318 CC: LANA BRANDT; ELI LOVE MD ~ Course & Med Decision Making Course & Med Decision Making Pertinent Labs and Imaging studies reviewed. (See chart for details) Evaluation of patient in ER showed 42-year-old male patient with history of anxiety and depression and frequent emergency room visits complaining of sudden onset of right upper quadrant pain for the last 2 hours with nausea and vomiting. Patient had unremarkable physical exam but rated her pain 7/10. Patient treated with Zofran and Pepcid and stated her pain did not change. Patient had unremarkable labs except for INR of 2.7 because of taking Coumadin. Gallbladder ultrasound was unremarkable. Patient psychiatric to continue her home medication and prescription for Reglan was given. Dragon Disclaimer Dragon Disclaimer This electronic medical record was generated, in whole or in part, using a voice recognition dictation system. Departure Departure: Impression: Primary Impression: Abdominal pain Additional Impressions: Anxiety and depression Anticoagulated on Coumadin Nausea and vomiting Disposition: 01 HOME, SELF-CARE (at 1548) Condition: IMPROVED Referrals: LANA BRANDT (PCP) Patient Instructions: Abdominal Pain, Nausea and Vomiting Additional Instructions: Drink plenty of liquids Follow-up with your primary care physician in 3-5 days Return to ER if not getting better Scripts Metoclopramide Hcl (REGLAN) 10 Mg Tablet 1 TAB PO TID PRN for NAUSEA, #14 TAB Prov: ELI LOVE MD 06/02/18 Problem Qualifiers ELI LOVE MD Jun 02, 2018 14:54
[2018-06-02 15:12] LABS: BACTERIA,URINE 0 /HPF (0-FEW); BILIRUBIN,URINE NEG (NEG); CLARITY,URINE CLEAR; COLOR,URINE YELLOW; GLUCOSE,URINE NEG (NEG); NITRITE,URINE NEG (NEG); RBC,URINE RARE /HPF (0-2); SQUAMOUS EPITHELIAL CELL,UR OCC /LPF; UROBILINOGEN,URINE 0.2 mg/dL (0.2 mg/dL); WBC,URINE RARE /HPF (0-4)
--- NOTE | 2018-06-02 15:26 | RAD ---
Limited abdominal ultrasound History: ABD PAIN . Findings: Aorta: The visualized segment is patent Inferior vena cava: Patent Pancreas: Unremarkable Liver: Mildly enlarged, about 19.6 cm cephalocaudal. Increased echogenicity compatible with steatosis. Gallbladder: No evidence of cholelithiasis, gallbladder wall thickening or pericholecystic fluid. Bile ducts: No evidence of dilatation Right kidney: 10.1 cm length. No evidence of hydronephrosis. Impression: 1. Mild hepatomegaly with steatosis. 2. No other significant sonographic abnormality. Electronically signed by: Chris Arredondo MD (06/02/2018 3:23 PM) [facility]
[2018-06-02] MEDS ORDERED: METO10TA81 PO (15:51)
[2018-06-02 16:25] VITALS: BP 138/79
== END 2018-06-02 16:25 | disposition home or self-care (01) ==
LOC: ER 12:49
DX: R10.11 Right upper quadrant pain (principal); R11.2 Nausea with vomiting, unspecified; F41.9 Anxiety disorder, unspecified; F32.9 Major depressive disorder, single episode, unspecified; K76.0 Fatty (change of) liver, not elsewhere classified; K21.9 Gastro-esophageal reflux disease without esophagitis; E78.00 Pure hypercholesterolemia, unspecified; Z79.01 Long term (current) use of anticoagulants; Z98.890 Other specified postprocedural states; Z88.1 Allergy status to other antibiotic agents
CPT/HCPCS: 36415; 76705; 80053; 81001; 83690; 84484; 85025; 85610; 85730; 96361; 96374; 96375; 99284; J2360; J2405; J2765; J3490; J7030

== ENCOUNTER 2020-02-28 20:09 | Emergency (ER) | payer OTHER ==
[~2020-02-28] VITALS: Ht 162.6 cm; Wt 81.0 kg
[2020-02-28 20:09] VITALS: BP 179/91
[~2020-02-28 20:09] MED LIST changes: +ALBU2.5V8 INH; -ALBU8.5H8 INH; +METO10TA81 PO
--- NOTE | 2020-02-28 20:27 | PHYS DOC ---
Past History Past Medical History: Anxiety, Depression, GERD, High Cholesterol, Other Past Surgical History: , Tonsillectomy, Other Smoking: Non-smoker Alcohol Use: None Drug Use: None General Adult EDM: Chief Complaint: BACK PAIN OR INJURY HPI: HPI: 44-year-old female presents with low back pain. The patient was at a furniture store earlier today and she dropped her phone. She quickly went to pick it up and when she stood back up she "tweaked" something in her back and has had low back discomfort since that time. Patient has no significant history of low back injuries. She does have a cervical fusion and was told she has arthritis in her low back. Patient denies trauma or lifting anything heavy. She presents tonight because the pain is 7 out of 10 and she is not sure she will be able to sleep. She denies numbness, tingling, altered sensation in her legs. She has no other complaints at this time. Review of Systems: Review of Systems: Constitutional: Denies fever or chills Eyes: Denies change in visual acuity HENT: Denies nasal congestion or sore throat Respiratory: Denies cough or shortness of breath Cardiovascular: Denies chest pain or edema GI: Denies abdominal pain, nausea, vomiting, bloody stools or diarrhea : Denies dysuria Musculoskeletal: Low back pain Integument: Denies rash Neurologic: Denies headache, focal weakness or sensory changes Endocrine: Denies polyuria or polydipsia Lymphatic: Denies swollen glands Psychiatric: Denies depression or anxiety Heart Score: Risk Factors: Risk Factors: DM, Current or recent (<one month) smoker, HTN, HLP, family history of CAD, obesity. Risk Scores: Score 0 - 3: 2.5% MACE over next 6 weeks - Discharge Home Score 4 - 6: 20.3% MACE over next 6 weeks - Admit for Clinical Observation Score 7 - 10: 72.7% MACE over next 6 weeks - Early Invasive Strategies Allergies: Allergies: Allergies Coded Allergies Type Severity Reaction Last Updated Verified clindamycin Allergy Severe 04/02/18 Yes doxycycline Allergy Intermediate VOMITING 04/02/18 No Physical Exam: PE: Constitutional: Well developed, well nourished, no acute distress, non-toxic appearance. [] HENT: Normocephalic, atraumatic, bilateral external ears normal, oropharynx moist, no oral exudates, nose normal. [] Eyes: PERRLA, EOMI, conjunctiva normal, no discharge. [] Neck: Normal range of motion, no tenderness, supple, no stridor. [] Cardiovascular: Heart rate regular rhythm, no murmur [] Lungs & Thorax: Bilateral breath sounds clear to auscultation [] Abdomen: Bowel sounds normal, soft, no tenderness, no masses, no pulsatile masses. [] Skin: Warm, dry, no erythema, no rash. [] Back: Pain with standing up from a sitting position, tenderness over L3-L4, paraspinal muscle spasm in this region. [] Extremities: No tenderness, no cyanosis, no clubbing, ROM intact, no edema. [] Neurologic: Alert and oriented X 3, normal motor function, normal sensory function, no focal deficits noted. [] Psychologic: Affect normal, judgement normal, mood normal. [] EKG: EKG: [] Radiology/Procedures: Radiology/Procedures: [] Impressions: LUMBAR SPINE 2-3V DATE: 02/28/2020 8:23 PM INDICATION: low back pain, INJURED BENDING OVER. COMPARISON: None. FINDINGS: Five non-rib bearing lumbar-type vertebral bodies are present. Bones/Alignment: No evidence of acute compression fracture. There is no listhesis. Joints: There is no disc space loss. Miscellaneous: None. IMPRESSION: No evidence of acute compression fracture. Electronically signed by: Omar Delcid MD (02/28/2020 8:46 PM) [facility] DICTATED AND SIGNED BY: OMAR DELCID MD DATE: 02/28/202045 CC: MARIE LOVE DO; LANA BRANDT ~ Course & Med Decision Making: Course & Med Decision Making Pertinent Labs and Imaging studies reviewed. (See chart for details) The patient's x-rays are negative for significant acute findings. I believe she just tweaked the cervical disc and is having reflex spasm. I have treated her with 1 [place] 5/325, 10 of Flexeril, and 60 mg of prednisone. I will discharge her with a prescription for [place], Flexeril, and 3 more days of prednisone. She is stable for discharge at this time. [] Dragon Disclaimer: Dragon Disclaimer: This electronic medical record was generated, in whole or in part, using a voice recognition dictation system. Departure Departure: Impression: Primary Impression: Lumbar back sprain Qualified Codes: S33.5XXA - Sprain of ligaments of lumbar spine, initial encounter Disposition: HOME/RESIDENCE PRIOR TO ADM Condition: STABLE Referrals: LANA BRADNT (PCP) Patient Instructions: Low Back Strain with [facility]hab[facility] Scripts Prednisone (PREDNISONE) 10 Mg Tablet 50 MG PO DAILY for low back strain for 3 Days, #15 TAB Prov: MARIE LOVE DO 02/28/20 Hydrocodone Bit/Acetaminophen (NORCO 5-325 TABLET) 1 Each Tablet 1 TAB PO PRN Q6HRS PRN for PAIN, #10 TAB 0 Refills Prov: MARIE LOVE DO 02/28/20 Cyclobenzaprine Hcl (CYCLOBENZAPRINE HCL) 10 Mg Tablet 1 TAB PO TID PRN for MUSCLE SPASMS, #30 TAB Prov: MARIE LOVE DO 02/28/20 Justification of Admission: Justification of Admission: Justification of Admission Dx: N/A MARIE LOVE DO Feb 28, 2020 20:27
[2020-02-28] MEDS ORDERED: PRED-220 PO (20:49)
[2020-02-28] MEDS ORDERED: CYCL-331 PO (20:49)
[2020-02-28] MEDS ORDERED: HYDR-3165 PO (20:49)
--- NOTE | 2020-02-28 20:49 | RAD ---
LUMBAR SPINE 2-3V DATE: 02/28/2020 8:23 PM INDICATION: low back pain, INJURED BENDING OVER. COMPARISON: None. FINDINGS: Five non-rib bearing lumbar-type vertebral bodies are present. Bones/Alignment: No evidence of acute compression fracture. There is no listhesis. Joints: There is no disc space loss. Miscellaneous: None. IMPRESSION: No evidence of acute compression fracture. Electronically signed by: Franco Robertson MD (02/28/2020 8:46 PM) [email or web address]
[2020-02-28] MEDS ORDERED: predniSONE 20 MG TABLET PO ONE (21:00)
[2020-02-28] MEDS ORDERED: CYCLOBENZAPRINE 10 MG TABLET. PO ONE (21:00)
[2020-02-28] MEDS ORDERED: HYDROcodone/APAP 5/325MG 1 TAB TABLET PO ONE (21:00)
== END 2020-02-28 21:08 | disposition home or self-care (01) ==
LOC: ER 20:09
DX: S33.5XXA Sprain of ligaments of lumbar spine, initial encounter (principal); K21.9 Gastro-esophageal reflux disease without esophagitis; E78.00 Pure hypercholesterolemia, unspecified; Z98.890 Other specified postprocedural states; Z88.1 Allergy status to other antibiotic agents; X50.9XXA Other and unspecified overexertion or strenuous movements or postures, initial encounter; Y93.89 Activity, other specified; Y92.89 Other specified places as the place of occurrence of the external cause; Y99.8 Other external cause status
CPT/HCPCS: 72100; 99284; J7512

== ENCOUNTER 2020-04-01 10:57 | Emergency (ER) | payer OTHER ==
[~2020-04-01] VITALS: Ht 154.9 cm; Wt 75.6 kg
[~2020-04-01 10:57] MED LIST changes: +CYCL-331 PO; +PRED-220 PO
[2020-04-01] MEDS ORDERED: HYDROcodone/APAP 5/325MG 1 TAB TABLET PO ONE (11:15)
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
[2020-04-01 11:22] VITALS: BP 146/99
--- NOTE | 2020-04-01 11:32 | EKG ---
[facility] ED [facility] [place] [id number] Test Date: 2020-04-01 Test Time: 11:06:56 Pat Name: TERI KAT Department: Room: Gender: F Supervisor Data Processing: : 1975 Requested By: CHASTITY NEVILLE Order Number: [id number] Reading MD: Measurements Intervals [place] Rate: 68 P: 0 KS: 160 QRS: 52 QRSD: 96 T: 42 QT: 394 QTc: 424 Interpretive Statements SINUS RHYTHM NORMAL ECG RI6.02 No previous ECG available for comparison
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
== END 2020-04-01 12:59 | disposition home or self-care (01) ==
LOC: ER 10:57
DX: R07.89 Other chest pain (principal); K21.9 Gastro-esophageal reflux disease without esophagitis; E78.00 Pure hypercholesterolemia, unspecified; Z88.1 Allergy status to other antibiotic agents; V43.52XA Car driver injured in collision with other type car in traffic accident, initial encounter; Y93.I9 Activity, other involving external motion; Y92.488 Other paved roadways as the place of occurrence of the external cause; Y99.8 Other external cause status
CPT/HCPCS: 71046; 93005; 99283

== ENCOUNTER 2020-05-14 14:57 | Emergency (ER) | payer OTHER ==
[~2020-05-14] VITALS: Ht 154.9 cm; Wt 75.6 kg
[~2020-05-14 14:57] MED LIST changes: +MIRT-37 PO; -MIRT15TA PO
[2020-05-14 15:00] VITALS: BP 139/100
--- NOTE | 2020-05-14 15:39 | PHYS DOC ---
Past History Past Medical History: Anxiety, Cancer, Depression, GERD, High Cholesterol, Other Additional Past Medical Histor: blood clots Past Surgical History: Cancer Surgery, , Tonsillectomy, Other Smoking: Non-smoker Alcohol Use: None Drug Use: None General Adult EDM: Chief Complaint: BREAST PROBLEM HPI: HPI: Patient is a 41-year-old female coming in for right upper arm pain and swelling that now radiates to her armpit and down to the right breast. Denies any injuries. Has a history significant for factor V Leiden and multiple blood clots in the past. Patient states she has been compliant and takes 5 mg of Eliquis twice a day. Has a history of breast cancer and is currently on hormone therapy. Patient states the pain started on the inner aspect of her distal upper arm and is been moving up gradually over the past day. Has slight swelling near her armpit. Denies any erythema. Otherwise has been well Review of Systems: Review of Systems: Constitutional: Denies fever or chills Eyes: Denies change in visual acuity HENT: Denies nasal congestion or sore throat Respiratory: Denies cough or shortness of breath Cardiovascular: Denies chest pain or edema GI: Denies abdominal pain, nausea, vomiting, bloody stools or diarrhea : Denies dysuria Musculoskeletal: Denies back pain or joint pain, right upper arm pain and swelling Integument: Denies rash Neurologic: Denies headache, focal weakness or sensory changes Endocrine: Denies polyuria or polydipsia Lymphatic: Denies swollen glands Psychiatric: Denies depression or anxiety Allergies: Allergies: Allergies Coded Allergies Type Severity Reaction Last Updated Verified clindamycin Allergy Severe 04/02/18 Yes doxycycline Allergy Intermediate VOMITING 04/02/18 No Physical Exam: PE: Constitutional: Well developed, well nourished, no acute distress, non-toxic appearance. [] HENT: Normocephalic, atraumatic, bilateral external ears normal, oropharynx moist, no oral exudates, nose normal. [] Eyes: PERRLA, EOMI, conjunctiva normal, no discharge. [] Neck: Normal range of motion, no tenderness, supple, no stridor. [] Cardiovascular:Heart rate regular rhythm, no murmur [] Lungs & Thorax: Bilateral breath sounds clear to auscultation [] Abdomen: Bowel sounds normal, soft, no tenderness, no masses, no pulsatile masses. [] Skin: Warm, dry, no erythema, no rash. [] Back: No tenderness, no CVA tenderness. [] Extremities: No tenderness, no cyanosis, no clubbing, ROM intact, no edema. [] Tenderness and mild edema of inner right upper extremity, no lymphadenopathy Neurologic: Alert and oriented X 3, normal motor function, normal sensory function, no focal deficits noted. [] Psychologic: Affect normal, judgement normal, mood normal. [] EKG: EKG: [] Radiology/Procedures: Radiology/Procedures: [] Heart Score: Risk Factors: Risk Factors: DM, Current or recent (<one month) smoker, HTN, HLP, family history of CAD, obesity. Risk Scores: Score 0 - 3: 2.5% MACE over next 6 weeks - Discharge Home Score 4 - 6: 20.3% MACE over next 6 weeks - Admit for Clinical Observation Score 7 - 10: 72.7% MACE over next 6 weeks - Early Invasive Strategies Course & Med Decision Making: Course & Med Decision Making Pertinent Labs and Imaging studies reviewed. (See chart for details) Respiratory precautions for cat scratch fever calf stretch history to 3 weeks ago. No signs of infection inflammation, no lymphadenopathy. Also discussed following up with surgeon for possible lymphedema secondary to lymph node removal on her right axilla [] Joel Disclaimer: Joel Disclaimer: This electronic medical record was generated, in whole or in part, using a voice recognition dictation system. Departure Departure: Impression: Primary Impression: Right axillary swelling Disposition: 01 DC HOME SELF CARE/HOMELESS Condition: STABLE Referrals: LANA BRANDT (PCP) Patient Instructions: RICE - Routine Care for Injuries DOUGLAS ELENA MD May 14, 2020 15:39
[2020-05-14 16:08] LABS: BASO % 1 % (0-3); EOS # 0.1 x10^3/uL (0.0-0.7); EOS % 2 % (0-3); HEMATOCRIT 32.7 % (36.0-47.0); HEMOGLOBIN 10.9 g/dL (12.0-15.5); LYMPH # 1.6 x10^3/uL (1.0-4.8); LYMPH % 34 % (24-48); MEAN CORPUSCULAR HEMOGLOBIN 29 pg (25-35); MEAN CORPUSCULAR HGB CONC 33 g/dL (31-37); MEAN CORPUSCULAR VOLUME 86 fL (79-100); MONO # 0.3 x10^3/uL (0.0-1.1); MONO % 7 % (0-9); NEUT # 2.7 x10^3uL (1.8-7.7); NEUT % 57 % (31-73); PLATELET COUNT 260 x10^3/uL (140-400); RED BLOOD COUNT 3.79 x10^6/uL (3.50-5.40); RED CELL DISTRIBUTION WIDTH 14.7 % (11.5-14.5); WHITE BLOOD COUNT 4.6 x10^3/uL (4.0-11.0)
[2020-05-14 16:09] LABS: CALCIUM 8.9 mg/dL (8.5-10.1); CREATININE 1.1 mg/dL (0.6-1.0); GFR 54.2; POTASSIUM 3.6 mmol/L (3.5-5.1)
[2020-05-14 16:15] LABS: ALBUMIN 3.6 g/dL (3.4-5.0); TOTAL BILIRUBIN 0.1 mg/dL (0.2-1.0); TOTAL PROTEIN 7.2 g/dL (6.4-8.2)
--- NOTE | 2020-05-14 16:25 | RAD ---
EXAM: Right upper extremity venous Doppler. HISTORY: Right arm pain and swelling. History of DVT. Patient on blood thinners. COMPARISON: None. FINDINGS: Grayscale and Doppler analysis of the right upper extremity deep venous system was performed with graded compression and augmentation. The internal jugular, subclavian, axillary, brachial, basilic, radial and ulnar veins were assessed. There is no evidence of deep venous thrombosis. IMPRESSION: 1. No evidence of thrombosis in the right upper extremity deep veins. Electronically signed by: Lesley Gan MD (05/14/2020 4:22 PM) [id number]
== END 2020-05-14 17:01 | disposition home or self-care (01) ==
LOC: ER 14:57
DX: R22.31 Localized swelling, mass and lump, right upper limb (principal); M79.621 Pain in right upper arm; K21.9 Gastro-esophageal reflux disease without esophagitis; E78.00 Pure hypercholesterolemia, unspecified; F41.9 Anxiety disorder, unspecified; F32.9 Major depressive disorder, single episode, unspecified; Z88.1 Allergy status to other antibiotic agents
CPT/HCPCS: 36415; 80053; 85025; 85610; 93971; 99284

== ENCOUNTER 2020-06-09 13:56 | Emergency (ER) | payer OTHER ==
[~2020-06-09] VITALS: Ht 154.9 cm; Wt 75.6 kg
[2020-06-09 14:04] VITALS: BP 169/93
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
--- NOTE | 2020-06-09 14:39 | PHYS DOC ---
Past History Past Medical History: Anxiety, Cancer, Depression, GERD, High Cholesterol, Other Additional Past Medical Histor: blood clots, factor 5 Past Surgical History: Appendectomy, Cancer Surgery, Cervical Fusion, C- Section, Tonsillectomy, Tubal ligation, Other Smoking: Non-smoker Alcohol Use: None Drug Use: None Adult General Chief Complaint Chief Complaint: HEADACHE HPI HPI Patient is a female who presents to the ED today complaining of a head injury. Patient states 2 days ago she was walking her mother's poodle when she tripped on the leash and hit her head on a countertop. Patient denies any loss of consciousness but she states she got dazed. She rates her pain at 8 out of 10, describes the pain as a throbbing headache worse with noise and light sensitivity. She states she is taking Tylenol with no relief. Review of Systems Review of Systems Constitutional: Denies fever or chills [] Eyes: Denies change in visual acuity, redness, or eye pain [] HENT: Denies nasal congestion or sore throat [] Respiratory: Denies cough or shortness of breath [] Cardiovascular: No additional information not addressed in HPI [] GI: Denies abdominal pain, nausea, vomiting, bloody stools or diarrhea [] : Denies dysuria or hematuria [] Musculoskeletal: Denies back pain or joint pain [] Integument: Denies rash or skin lesions [] Neurologic: Reports head injury, denies focal weakness or sensory changes [] All other systems were reviewed and found to be within normal limits, except as documented in this note. Allergies Allergies Allergies Coded Allergies Type Severity Reaction Last Updated Verified clindamycin Allergy Severe 04/02/18 Yes doxycycline Allergy Intermediate VOMITING 04/02/18 No erythromycin base Allergy Unknown 06/09/20 Yes Physical Exam Physical Exam Constitutional: Well developed, well nourished, no acute distress, non-toxic appearance. [] HENT: Normocephalic, atraumatic, bilateral external ears normal, oropharynx moist, no oral exudates, nose normal. [] Eyes: PERRLA, EOMI, conjunctiva normal, no discharge. [] Neck: Normal range of motion, no tenderness, supple, no stridor. [] Cardiovascular:Heart rate regular rhythm, no murmur [] Lungs & Thorax: Bilateral breath sounds clear to auscultation [] Abdomen: Bowel sounds normal, soft, no tenderness, no masses, no pulsatile masses. [] Skin: Warm, dry, no erythema, no rash. [] Back: No tenderness, no CVA tenderness. [] Extremities: No tenderness, no cyanosis, no clubbing, ROM intact, no edema. [] Neurologic: Alert and oriented X 3, normal motor function, normal sensory function, no focal deficits noted. Cranial nerves II through XII intact Psychologic: Affect normal, judgement normal, mood normal. [] Current Patient Data Vital Signs Vital Signs Date Time Temp Pulse Resp B/P (MAP) Pulse Ox O2 Delivery O2 Flow Rate FiO2 06/09/20 14:04 97.9 79 16 169/93 (118) 98 Room Air EKG EKG [] Radiology/Procedures Radiology/Procedures []PROCEDURE: CT HEAD WO CONTRAST CT HEAD/BRAIN WO Date: 06/09/2020 2:10 PM Clinical Indication: Reason: pain hit head / Spl. Instructions: / History: Comparison: None. Technique: 5 mm axial tomographic images were obtained of the head without contrast. These were viewed on brain and bone windows. One or more of the following dose reduction techniques were utilized: Automated exposure control (AEC), Adjustment of mA and/or kV according to patient size, Use of iterative reconstruction technique such as ASiR, CT scan done according to ALARA and image gently/image wisely Findings: The brain parenchyma is normal in attenuation. No intra- or extra-axial mass or fluid collection. No acute hemorrhage. The ventricles are normal in size, shape, and morphology. The angulo-white matter junction is normal. The subarachnoid cisterns are patent. The visualized paranasal sinuses are normal. The visualized portions of the orbits and globes are normal. The mastoid air cells are clear. The exercise equipment repair technician topogram shows no lytic lesion or fracture. Impression: No acute intracranial process. 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 Risk Scores: Risk Factors: DM, Current or recent (<one month) smoker, HTN, HLP, family history of CAD, obesity. Course & Med Decision Making Course & Med Decision Making Pertinent Labs and Imaging studies reviewed. (See chart for details) This is a 44-year-old male patient presenting to the ED today complaining of head injury, patient hit her head on a countertop [address] of the head is negative. Patient was discharged to home. Provided return precautions related to head injuries. Follow-up with her PCP in the course of this week. Dragon Disclaimer Dragon Disclaimer This electronic medical record was generated, in whole or in part, using a voice recognition dictation system. Departure Departure: Impression: Primary Impression: Closed head injury with concussion Disposition: 01 DC HOME SELF CARE/HOMELESS Condition: STABLE Referrals: LANA BRANDT (PCP) follow up next week Patient Instructions: Concussion and Brain Injury Additional Instructions: You were seen for head injury with concussion symptoms. Your CAT scan of the head is negative for any acute findings. Please follow-up with your own doctor in the course of this week or next week. Come back to the ED at any point you have uncontrolled pain, uncontrolled nausea vomiting, excessive sleepiness or any other concerning symptoms Problem Qualifiers Primary Impression: Closed head injury with concussion Encounter type: initial encounter Loss of consciousness presence/duration: without LOC Qualified Codes: S06.0X0A - Concussion without loss of consciousness, initial encounter SHYANNMARYBambiKOKO SERRA Jun 09, 2020 14:39
== END 2020-06-09 14:45 | disposition home or self-care (01) ==
LOC: ER 13:56
DX: S09.90XA Unspecified injury of head, initial encounter (principal); F41.9 Anxiety disorder, unspecified; F32.9 Major depressive disorder, single episode, unspecified; K21.9 Gastro-esophageal reflux disease without esophagitis; E78.00 Pure hypercholesterolemia, unspecified; Z88.1 Allergy status to other antibiotic agents; W18.09XA Striking against other object with subsequent fall, initial encounter; Y93.01 Activity, walking, marching and hiking; Y92.89 Other specified places as the place of occurrence of the external cause; Y99.8 Other external cause status
CPT/HCPCS: 70450; 99284

== ENCOUNTER 2020-06-14 04:49 | Emergency (ER) | payer OTHER ==
[~2020-06-14] VITALS: Ht 154.9 cm; Wt 75.6 kg
--- NOTE | 2020-06-14 04:52 | PHYS DOC ---
Past History Past Medical History: Anxiety, Cancer, Depression, GERD, High Cholesterol, Migraines, Other Additional Past Medical Histor: blood clots, factor 5 Past Medical History Breast Cancer- Dx. 08/20, - Follows at [facility] (SONNY KIMBALL MD) Past Surgical History: Appendectomy, Cancer Surgery, Cervical Fusion, C- Section, Tonsillectomy, Tubal ligation, Other (SONNY KIMBALL MD) Smoking: Non-smoker Alcohol Use: None Drug Use: None (SONNY KIMBALL MD) General Adult HPI: HPI: "..I got a bone infusion ...yesterday at [facility].. it was to keep my breast cancer from coming back.. I was fine.. they said it would cause some pain.. but I only had a little when I went to bed.. about 9 ( 2100).. but I woke up a few minutes ago is this terrible pain in all my bones.. it hurts to move.." Patient is a 44 year old female who presents with above hx and complaints generalized myalgia, arthralgia, malaise after a infusion to prevent her breast cancer coming back. Pt. rates her pain as 10/10 and so severe it incapacitates her. The patient was diagnosed with breast cancer in August of this year. Underwent breast biopsy and then chemo and radiation. Patient has been following at [facility]. Patient has past medical history of depression, GERD, elevated cholesterol, factor V deficiency, DVTs, migraines, and anxiety. Patient does smoke when she is stressed. Patient has past surgical history significant for right inguinal and periumbilical hernias with repair, C-sections, tonsillectomy, tubal ligation, uterine ablation, dysfunctional uterine bleeding, EGDs and colonoscopies, cervical laminectomy and fixation and breast biopsy. Pt has been following with Dr. Taylor Moseley at [facility]. ). (SONNY KIMBALL MD) Review of Systems: Review of Systems: Constitutional: Denies fever or chills Eyes: Denies change in visual acuity HENT: Denies nasal congestion or sore throat Respiratory: Denies cough or shortness of breath Cardiovascular: Denies chest pain or edema GI: Denies abdominal pain, nausea, vomiting, bloody stools or diarrhea : Denies dysuria Musculoskeletal: Patient complains of generalized joint and muscle pain Integument: Denies rash Neurologic: Denies headache, focal weakness or sensory changes Endocrine: Denies polyuria or polydipsia Lymphatic: Denies swollen glands Psychiatric: Denies depression or anxiety (SONNY KIMBALL MD) Family History: Family History: Noncontributory to presentation (SONNY KIMBALL MD) Current Medications: Current Meds: See nursing for home meds (SONNY KIMBALL MD) Allergies: Allergies: Allergies Coded Allergies Type Severity Reaction Last Updated Verified clindamycin Allergy Severe 04/02/18 Yes doxycycline Allergy Intermediate VOMITING 04/02/18 No erythromycin base Allergy Unknown 06/09/20 Yes (SONNY KIMBALL MD) Physical Exam: PE: Constitutional: in acute distress, non-toxic appearance. [] HENT: Normocephalic, atraumatic, bilateral external ears normal, oropharynx moist, no oral exudates, nose normal. [] Eyes: PERRLA, EOMI, conjunctiva normal, no discharge. [] Neck: Normal range of motion, no tenderness, supple, no stridor. Old surgery scar Cardiovascular: Tachycardia heart rate regular rhythm, no murmur [] PMI to the left Lungs & Thorax: Bilateral breath sounds equal at apex auscultation [] Breast scar. Right Abdomen: Bowel sounds normal, soft, no tenderness, no masses, no pulsatile masses.. Old surgery scars Skin: Warm, dry, no erythema, no rash. [] Back: No tenderness, no CVA tenderness. [] Extremities: Generalized muscle and bone tenderness, no cyanosis, no clubbing, ROM intact, no edema. [] No cording appreciated Neurologic: Alert and oriented X 3, normal motor function, normal sensory function, no focal deficits noted. [] Psychologic: Affect anxious, judgement normal, mood normal. [] (SONNY KIMBALL MD) Current Patient Data: Labs: Laboratory Tests Test 06/14/20 05:25 White Blood Count 7.2 x10^3/uL (4.0-11.0) Red Blood Count 3.74 x10^6/uL (3.50-5.40) Hemoglobin 10.7 g/dL (12.0-15.5) Hematocrit 32.4 % (36.0-47.0) Mean Corpuscular Volume 87 fL (79-100) Mean Corpuscular Hemoglobin 29 pg (25-35) Mean Corpuscular Hemoglobin Concent 33 g/dL (31-37) Red Cell Distribution Width 15.2 % (11.5-14.5) Platelet Count 209 x10^3/uL (140-400) Neutrophils (%) (Auto) 88 % (31-73) Lymphocytes (%) (Auto) 6 % (24-48) Monocytes (%) (Auto) 4 % (0-9) Eosinophils (%) (Auto) 1 % (0-3) Basophils (%) (Auto) 0 % (0-3) Neutrophils # (Auto) 6.3 x10^3uL (1.8-7.7) Lymphocytes # (Auto) 0.5 x10^3/uL (1.0-4.8) Monocytes # (Auto) 0.3 x10^3/uL (0.0-1.1) Eosinophils # (Auto) 0.1 x10^3/uL (0.0-0.7) Basophils # (Auto) 0.0 x10^3/uL (0.0-0.2) Prothrombin Time 9.9 SEC (9.4-11.4) Prothromb Time International Ratio 1.0 (0.9-1.1) Activated Partial Thromboplast Time 22 SEC (23-33) D-Dimer (Michelle) 0.39 mg/L (0.00-0.50) Maternal Serum HCG Beta Subunit < 1 mIU/mL (0-6) Sodium Level 140 mmol/L (136-145) Potassium Level 3.7 mmol/L (3.5-5.1) Chloride Level 103 mmol/L (98-107) Carbon Dioxide Level 29 mmol/L (21-32) Anion Gap 8 (6-14) Blood Urea Nitrogen 12 mg/dL (7-20) Creatinine 1.0 mg/dL (0.6-1.0) Estimated GFR (Cockcroft-Gault) 60.5 Glucose Level 132 mg/dL (70-99) Calcium Level 8.5 mg/dL (8.5-10.1) Magnesium Level 1.8 mg/dL (1.8-2.4) Total Bilirubin 0.2 mg/dL (0.2-1.0) Direct Bilirubin 0.1 mg/dL (0.0-0.2) Aspartate Amino Transf (AST/SGOT) 27 U/L (15-37) Alanine Aminotransferase (ALT/SGPT) 32 U/L (14-59) Alkaline Phosphatase 101 U/L (46-116) Creatine Kinase 112 U/L (26-192) Troponin I Quantitative < 0.017 ng/mL (0-0.055) C-Reactive Protein 7.8 mg/L (0-3.3) HO-Cyo-N-Type Natriuretic Peptide 83 pg/mL (0-124) Total Protein 7.0 g/dL (6.4-8.2) Albumin 3.4 g/dL (3.4-5.0) Lipase 79 U/L (73-393) Vital Signs: Vital Signs Date Time Temp Pulse Resp B/P (MAP) Pulse Ox O2 Delivery O2 Flow Rate FiO2 06/14/20 06:16 99 Room Air 06/14/20 04:50 98.7 88 22 145/99 (114) (AYLA LEGGETT DO) EKG: EKG: My interpretation of EKG shows a sinus rhythm with no acute morphology [] (SONNY KIMBALL MD) Radiology/Procedures: Radiology/Procedures: [] (SONNY KIMBALL MD) Radiology/Procedures: INDICATION: Reason: Chest pain / Spl. Instructions: / History: COMPARISON: March 2020 FINDINGS: Single view of chest obtained. Posterior fusion changes at the lower cervical spine with plate and screws again seen. Degenerative changes throughout the spine and shoulders. Cardiac mediastinal silhouette is again prominent in size. A definite new region of consolidation is not seen. IMPRESSION: * Enlarged cardiac silhouette without a definite new region of consolidation. Electronically signed by: Jimmy Joseph MD (06/14/2020 6:38 AM) DESKTOP- [id number] (AYLA LEGGETT DO) Heart Score: Risk Factors: Risk Factors: DM, Current or recent (<one month) smoker, HTN, HLP, family history of CAD, obesity. Risk Scores: Score 0 - 3: 2.5% MACE over next 6 weeks - Discharge Home Score 4 - 6: 20.3% MACE over next 6 weeks - Admit for Clinical Observation Score 7 - 10: 72.7% MACE over next 6 weeks - Early Invasive Strategies (SONNY KIMBALL MD) Course & Med Decision Making: Course & Med Decision Making Pertinent Labs and Imaging studies reviewed. (See chart for details) Discussed presentation, testing and tx. plan with Dr. Leggett at shift change. He will make disposition of pt. Impression: 1. Hx. Breast Cancer 2. General Myalgia and arthralgia after infusion 06/13 [] (SONNY KIMBALL MD) Course & Med Decision Making Signout received from off going physician I personally saw patient and repeated certain aspects of history and physical examination I reviewed entirety of ER work-up with patient, I disclosed there were no acute, emergent or surgical findings present With that said patient still symptomatic from "bone pain" but did respond to ER intervention today. I do not feel comfortable prescribing narcotics in setting of benzodiazepine use. I will defer this decision to her heme-onc physician Patient's heme-onc physician, Dr. Moseley, was contacted but are not available. I discussed case with on-call physician. Joint decision to discharge given no acute findings with close follow-up this morning with Dr. Moseley planned Strict return precautions were discussed with good understanding by patient, all questions and concerns addressed prior to ER departure in stable condition (AYLA LEGGETT DO) Eloiseon Disclaimer: Joel Disclaimer: This electronic medical record was generated, in whole or in part, using a voice recognition dictation system. (SONNY KIMBALL MD) Departure Departure: Impression: Primary Impression: Breast cancer in female Disposition: 01 DC HOME SELF CARE/HOMELESS Condition: IMPROVED Referrals: LANA BRANDT (PCP) Additional Instructions: You were seen for your "bone pain". Given extensive ER work-up that was nonconcerning for any emergent and/or surgical pathology, you were treated with pain control and fluids. I agree that source of your pain is likely due to new stimuli, your "bone infusion" for your known diagnosis of breast cancer. I attempted to contact your heme-onc physician but given that it is early before office hours, she was unobtainable. I discussed your case with the on-call physician at their office in they will be in contact with you in upcoming 3 hours, if you do not hear from them by 10 AM this morning please give their office a call. You should return to the ED if you develop any chest pain, shortness of breath, fever, cough, or any other new or concerning symptoms. Dragon Disclaimer This chart was dictated in whole or in part using Voice Recognition software in a busy, high-work load, and often noisy Emergency Department environment. It may contain unintended and wholly unrecognized errors or omissions. (SONNY KIMBALL MD) SONNY KIMBALL MD Jun 14, 2020 04:52 AYLA LEGGETT DO Jun 14, 2020 06:43
[2020-06-14] MEDS ORDERED: MORPHINE SULFATE 4 MG/ML DISP.SYRIN. IV ONE ×3 (05:00→07:30)
[2020-06-14] MEDS ORDERED: IV RINGERS SOLUTION,LACTATED 1,000 ML IV SCH (05:00)
[2020-06-14 05:42] LABS: BASO % 0 % (0-3); EOS # 0.1 x10^3/uL (0.0-0.7); EOS % 1 % (0-3); HEMATOCRIT 32.4 % (36.0-47.0); HEMOGLOBIN 10.7 g/dL (12.0-15.5); LYMPH # 0.5 x10^3/uL (1.0-4.8); LYMPH % 6 % (24-48); MEAN CORPUSCULAR HEMOGLOBIN 29 pg (25-35); MEAN CORPUSCULAR HGB CONC 33 g/dL (31-37); MEAN CORPUSCULAR VOLUME 87 fL (79-100); MONO # 0.3 x10^3/uL (0.0-1.1); MONO % 4 % (0-9); NEUT # 6.3 x10^3uL (1.8-7.7); NEUT % 88 % (31-73); PLATELET COUNT 209 x10^3/uL (140-400); RED BLOOD COUNT 3.74 x10^6/uL (3.50-5.40); RED CELL DISTRIBUTION WIDTH 15.2 % (11.5-14.5); WHITE BLOOD COUNT 7.2 x10^3/uL (4.0-11.0)
[2020-06-14 05:53] LABS: CALCIUM 8.5 mg/dL (8.5-10.1); GFR 60.5; POTASSIUM 3.7 mmol/L (3.5-5.1)
[2020-06-14 06:07] LABS: ALBUMIN 3.4 g/dL (3.4-5.0); C REACTIVE PROTEIN 7.8 mg/L (0-3.3); DIRECT BILIRUBIN 0.1 mg/dL (0.0-0.2); MAGNESIUM 1.8 mg/dL (1.8-2.4); TOTAL BILIRUBIN 0.2 mg/dL (0.2-1.0)
--- NOTE | 2020-06-14 06:41 | RAD ---
INDICATION: Reason: Chest pain / Spl. Instructions: / History: COMPARISON: March 2020 FINDINGS: Single view of chest obtained. Posterior fusion changes at the lower cervical spine with plate and screws again seen. Degenerative changes throughout the spine and shoulders. Cardiac mediastinal silhouette is again prominent in size. A definite new region of consolidation is not seen. IMPRESSION: * Enlarged cardiac silhouette without a definite new region of consolidation. Electronically signed by: Jimmy Joseph MD (06/14/2020 6:38 AM) [id number]
[2020-06-14 07:22] LABS: BARBITURATES POS (NEG); BENZODIAZEPINES NEG (NEG); CANNABINOIDS NEG (NEG); COCAINE NEG (NEG); METHADONE NEG (NEG); OPIATES POS (NEG); PHENCYCLIDINE NEG (NEG)
[2020-06-14 07:26] LABS: BILIRUBIN,URINE NEG (NEG); CLARITY,URINE CLEAR; COLOR,URINE YELLOW; GLUCOSE,URINE NEG (NEG); NITRITE,URINE NEG (NEG); RBC,URINE RARE /HPF (0-2); UROBILINOGEN,URINE 0.2 mg/dL (0.2 mg/dL)
[2020-06-14 07:27] LABS: BACTERIA,URINE 0 /HPF (0-FEW); SQUAMOUS EPITHELIAL CELL,UR OCC /LPF
[2020-06-14 07:28] LABS: AMPHETAMINE/METHAMPHETAMINE NEG (NEG)
[2020-06-14] MEDS ORDERED: ONDANSETRON PF 4 MG/2 ML VIAL. IVP ONE (07:30)
[2020-06-14 08:20] VITALS: BP 142/90
--- NOTE | 2020-06-14 13:03 | EKG ---
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
== END 2020-06-14 08:10 | disposition home or self-care (01) ==
LOC: ER 04:49
DX: M79.10 Myalgia, unspecified site (principal); M25.50 Pain in unspecified joint; C50.019 Malignant neoplasm of nipple and areola, unspecified female breast; F32.9 Major depressive disorder, single episode, unspecified; K21.9 Gastro-esophageal reflux disease without esophagitis; E78.00 Pure hypercholesterolemia, unspecified; G43.909 Migraine, unspecified, not intractable, without status migrainosus; F41.9 Anxiety disorder, unspecified; Z88.1 Allergy status to other antibiotic agents
CPT/HCPCS: 36415; 71045; 80048; 80076; 80307; 81001; 82550; 83690; 83735; 83880; 84443; 84484; 84702; 85025; 85379; 85610; 85730; 86140; 93005; 96361; 96374; 96375; 96376; 99285; J2270; J2405; J7120

== ENCOUNTER 2020-10-22 17:24 | Emergency (ER) | payer OTHER ==
[~2020-10-22] VITALS: Ht 154.9 cm; Wt 78.3 kg
[2020-10-22 17:30] VITALS: BP 176/111
--- NOTE | 2020-10-22 17:45 | EKG ---
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
--- NOTE | 2020-10-22 17:52 | PHYS DOC ---
Past History Past Medical History: Anxiety, Cancer, Depression, GERD, High Cholesterol, Migraines, Other Additional Past Medical Histor: blood clots, factor 5 (NICHOLAS GARCIA MD) Past Surgical History: Appendectomy, Cancer Surgery, Cervical Fusion, C- Section, Tonsillectomy, Tubal ligation (NICHOLAS GARCIA MD) Smoking: Non-smoker Alcohol Use: None Drug Use: None (NICHOLAS GARCIA MD) Adult General Chief Complaint Chief Complaint: SYNCOPE HPI HPI Patient is a 44-year-old female past medical history of factor V Leiden, breast cancer in remission, migraines who presents to the emergency room complaining of syncope. 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 She states she started feeling weird as if she could not keep on her feet and then the next thing she remembers is waking up to her son trying to wake her up. She states that she has felt off most of the day. She now has a frontal headache. She states this feels different than her other headaches as it is not in the same location. She does not typically have high blood pressure. She has some nausea but has not had any vomiting. She states she feels diffusely weak and fatigued. She states she really just wants to go to sleep. She is never had a seizure previously. She denies any focal numbness or weakness. She denies any kind of chest pain or shortness of breath. (NICHOLAS GARCIA MD) Review of Systems Review of Systems Complete ROS is negative unless otherwise documented in HPI (NICHOLAS GARCIA MD) Allergies Allergies Allergies Coded Allergies Type Severity Reaction Last Updated Verified clindamycin Allergy Severe 04/02/18 Yes doxycycline Allergy Intermediate VOMITING 04/02/18 No erythromycin base Allergy Unknown 06/09/20 Yes (NICHOLAS GARCIA MD) Physical Exam Physical Exam General: Awake, lethargic, NAD. Well Nourished, well hydrated. Cooperative HEENT: Atraumatic, EOMI, PERRL, airway patent, moist oral mucosa Neck: Supple, trachea midline Respiratory: CTA bilaterally, normal effort, no wheezing/crackles CV: RRR, no murmur, cap refill <2 GI: Soft, nondistended, nontender, no masses MSK: No obvious deformities Skin: Warm, dry, intact Neuro: A&O x3, speech slowed, 5/5 strength in BUE/BLE distally and proximally, CN 2-12 intact, cerebellar testing normal Psych: Normal affect, normal mood, not suicidal or homicidal (NICHOLAS GARCIA MD) Current Patient Data Lab Results Laboratory Tests Test 10/22/20 17:35 Glucose (Fingerstick) 124 mg/dL (70-99) H (NICHOLAS GARCIA MD) EKG EKG [] (NICHOLAS GARCIA MD) Radiology/Procedures Radiology/Procedures [] (NICHOLAS GARCIA MD) Radiology/Procedures XR CHEST 1V CLINICAL INDICATIONS: Reason: headache, syncope Portable AP chest x-ray COMPARISON: June 14, 2020. Findings: No acute lung infiltrate or pleural effusion or pulmonary edema or lung mass or pneumothorax is seen. The heart size, pulmonary vasculature, mediastinum and both cuco are stable. IMPRESSION: No acute radiographic abnormality is seen. CT HEAD/BRAIN WO Clinical indications: Reason: headache, syncope COMPARISON: June 09, 2020. Technique: Noncontrast axial cross sectional scanning of the head was performed. PQRS compliance Statement One or more of the following individualized dose reduction techniques were utilized for this study: 1. Automated exposure control 2. Adjustment of the mA and/or kV according to patient size 3. Use of iterative reconstruction technique Findings: No acute intracranial hemorrhage or midline shift or mass-effect or hydrocephalus or extra-axial fluid collection is seen. No new focal hypodense area or sulci effacement is seen to indicate an acute infarct or edema radiographically. No skull fracture or pneumocephalus is seen. No opacification of the mastoid sinuses or the middle ear cavities or the paranasal sinuses is seen. There is a polyp or mucous retention cyst of the roof of the left maxillary sinus measuring 1 cm. The maxillary sinuses are not completely seen in this study. IMPRESSION: No acute intracranial abnormality is seen. Electronically signed by: Ruslan Escoto MD (10/22/2020 6:38 PM) [id number] CTA HEAD AND NECK W/WO CONTRAST Clinical Indication: Reason: headache, N/V, ataxic gait, This CTA was performed in a separate imaging session from the head CT performed earlier. Comparison: CT head without contrast, earlier same day. Technique: Helical CT imaging from inferior to the aortic arch to the skull vertex is performed after 75 cc of Omnipaque [address] angiogram protocol. 3-D MIP reconstructions of the cervical carotid arteries and jena of [place] are performed. PQRS Compliance Statement - Stenosis calculations for CT, MR and conventional angiography are based upon measurement of the distal ICA diameter in accordance with the NASCET methodology. Stenosis calculations for carotid ultrasound studies are derived from validated velocity criteria which are known to correlate with the NASCET methodology. Findings: Aortic arch branches are patent. Common carotid arteries, carotid bifurcations, and cervical internal carotid arteries are patent. The proximal left vertebral artery is not well seen due to small caliber and motion. Given this limitation, the cervical vertebral arteries are patent. The right vertebral artery is dominant. The posterior circulation is intact. Distal internal carotid arteries are patent. The anterior circulation is intact. No intracranial artery stenosis or aneurysm is identified. No obvious abnormality of the dural venous sinuses. No abnormal enhancement in the brain parenchyma. There is no cervical adenopathy. There is no saddle pulmonary embolus. Mild biapical pleural parenchymal scarring. There is ACDF of C4-C6. There are interbody bone grafts with at least partial fusion at the disc spaces. 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 IMPRESSION: 1. No intracranial large vessel occlusion. 2. Normal CTA neck. Electronically signed by: Mahin Vilchis MD (10/22/2020 8:18 PM) [facility] (JACQUELYN BENNETT MD) Heart Score C/O Chest Pain: N/A Risk Factors: Risk Factors: DM, Current or recent (<one month) smoker, HTN, HLP, family history of CAD, obesity. Risk Scores: Risk Factors: DM, Current or recent (<one month) smoker, HTN, HLP, family history of CAD, obesity. (NICHOLAS GARCIA MD) Course & Med Decision Making Course & Med Decision Making Pertinent Labs and Imaging studies reviewed. (See chart for details) Patient is a 44-year-old female who presents to the emergency room complaining of syncope and headache. Patient does not have any focal neurologic deficits but does appear to be fatigued. We will do a CT head to rule out an intracranial bleed as patient is on Eliquis, has new onset high blood pressure, and has a new headache. Lab work was also ordered to evaluate for other causes of syncope. Lab work includes CBC, CMP, troponin. EKG was also done does not show signs of arrhythmia or STEMI at this time. Patient was discussed with oncoming physician who will assume care. (NICHOLAS GARCIA MD) Course & Med Decision Making Patient care handed off to me at checkout. Patient alert, oriented in no acute distress and endorsing significant improvement of headache after resuscitation. Able to ambulate without issue. ECG and troponin not concerning. Laboratory analysis not concerning. Urinalysis suggestive of urinary tract infection and started on Keflex in the ED. CTA of the head and neck, and other imaging with no acute concerning findings. Discussed all findings with patient and family. Patient stated she was feeling much better and was ready to be discharged home. Gave strict return precautions to the emergency department. Advised to call primary care physician first thing Saturday to update on ED visit and set up a follow-up as soon as possible. Family grateful, verbalized understanding and agreed with plan of discharge. (JACQUELYN BENNETT MD) Dragon Disclaimer Dragon Disclaimer This electronic medical record was generated, in whole or in part, using a voice recognition dictation system. (NICHOLAS GARCIA MD) Departure Departure: Impression: Primary Impression: Syncope Additional Impression: Headache Disposition: HOME / SELF CARE / HOMELESS Condition: GOOD Referrals: LANA BRANDT (PCP) Patient Instructions: Syncope, Urinary Tract Infection Additional Instructions: Please read all of the attached information carefully. Please take your antibiotics as prescribed. You can use Tylenol, ibuprofen and Benadryl at home as needed for headache as discussed. Please follow-up first thing Saturday with your primary care physician to discuss your ED visit and set up a follow-up as soon as possible. You were given a work note at your request. Please come back to the emergency department immediately with any new or concerning symptoms as discussed. Scripts Cephalexin (CEPHALEXIN) 500 Mg Capsule 1 CAP PO BID for UTI for 5 Days, #10 CAP Prov: JACQUELYN BENNETT MD 10/22/20 Problem Qualifiers NICHOLAS GARCIA MD Oct 22, 2020 17:52 JACQUELYN BENNETT MD Oct 22, 2020 20:11
--- NOTE | 2020-10-22 18:40 | RAD ---
XR CHEST 1V CLINICAL INDICATIONS: Reason: headache, syncope Portable AP chest x-ray COMPARISON: June 14, 2020. Findings: No acute lung infiltrate or pleural effusion or pulmonary edema or lung mass or pneumothora x is seen. The heart size, pulmonary vasculature, mediastinum and both cuco are stable. IMPRESSION: No acute radiographic abnormality is seen. CT HEAD/BRAIN WO Clinical indications: Reason: headache, syncope COMPARISON: June 09, 2020. Technique: Noncontrast axial cross sectional scanning of the head was performed. PQRS compliance Statement One or more of the following individualized dose reduction techniques were utilized for this study: 1. Automated exposure control 2. Adjustment of the mA and/or kV according to patient size 3. Use of iterative reconstruction technique Findings: No acute intracranial hemorrhage or midline shift or mass-effect or hydrocephalus or extra- axial fluid collection is seen. No new focal hypodense area or sulci effacement is seen to indicate a n acute infarct or edema radiographically. No skull fracture or pneumocephalus is seen. No opacifica tion of the mastoid sinuses or the middle ear cavities or the paranasal sinuses is seen. There is a p olyp or mucous retention cyst of the roof of the left maxillary sinus measuring 1 cm. The maxillary s inuses are not completely seen in this study. IMPRESSION: No acute intracranial abnormality is seen. Electronically signed by: Ruslan Escoto MD (10/22/2020 6:38 PM) [id number]
[2020-10-22] MEDS ORDERED: CONTRAST GIVEN. MC PRN (18:45)
[2020-10-22] MEDS ORDERED: IOHEXOL 350 MG/ML 100 ML VIAL. IV ONE (18:45)
[2020-10-22] MEDS ORDERED: METOCLOPRAMIDE HCL 10 MG/2 ML VIAL. IVP ONE (18:45)
[2020-10-22 18:46] LABS: BASO % 1 % (0-3); EOS # 0.1 x10^3/uL (0.0-0.7); EOS % 1 % (0-3); HEMATOCRIT 31.6 % (36.0-47.0); HEMOGLOBIN 10.6 g/dL (12.0-15.5); LYMPH # 1.7 x10^3/uL (1.0-4.8); LYMPH % 28 % (24-48); MEAN CORPUSCULAR HEMOGLOBIN 29 pg (25-35); MEAN CORPUSCULAR HGB CONC 34 g/dL (31-37); MEAN CORPUSCULAR VOLUME 85 fL (79-100); MONO # 0.5 x10^3/uL (0.0-1.1); MONO % 7 % (0-9); NEUT # 3.9 x10^3uL (1.8-7.7); NEUT % 63 % (31-73); PLATELET COUNT 290 x10^3/uL (140-400); RED BLOOD COUNT 3.72 x10^6/uL (3.50-5.40); RED CELL DISTRIBUTION WIDTH 15.3 % (11.5-14.5); WHITE BLOOD COUNT 6.2 x10^3/uL (4.0-11.0)
[2020-10-22 18:59] LABS: CALCIUM 9.3 mg/dL (8.5-10.1); CREATININE 1.1 mg/dL (0.6-1.0); GFR 54.2; POTASSIUM 4.1 mmol/L (3.5-5.1)
[2020-10-22 19:05] LABS: ALBUMIN 3.8 g/dL (3.4-5.0); ALBUMIN/GLOBULIN RATIO 1.1 (1.0-1.7); TOTAL BILIRUBIN 0.2 mg/dL (0.2-1.0); TOTAL PROTEIN 7.2 g/dL (6.4-8.2)
[2020-10-22 20:17] LABS: BARBITURATES NEG (NEG); BENZODIAZEPINES NEG (NEG); CANNABINOIDS NEG (NEG); COCAINE NEG (NEG); METHADONE NEG (NEG); OPIATES NEG (NEG); PHENCYCLIDINE NEG (NEG)
[2020-10-22 20:18] LABS: AMPHETAMINE/METHAMPHETAMINE NEG (NEG)
--- NOTE | 2020-10-22 20:20 | RAD ---
PQRS Compliance Statement: One or more of the following individualized dose reduction techniques were utilized for this examinat ion: 1. Automated exposure control 2. Adjustment of the mA and/or kV according to patient size 3. Use of iterative reconstruction technique CTA HEAD AND NECK W/WO CONTRAST Clinical Indication: Reason: headache, N/V, ataxic gait, This CTA was performed in a separate imagin g session from the head CT performed earlier. Comparison: CT head without contrast, earlier same day. Technique: Helical CT imaging from inferior to the aortic arch to the skull vertex is performed after 75 cc of Omnipaque [address] angiogram protocol. 3-D MIP reconstructions of the cervi daja carotid arteries and mary[place] of [place] are performed. PQRS Compliance Statement - Stenosis calculations for CT, MR and conventional angiography are based u noemy measurement of the distal ICA diameter in accordance with the NASCET methodology. Stenosis calcu lations for carotid ultrasound studies are derived from validated velocity criteria which are known t o correlate with the NASCET methodology. Findings: Aortic arch branches are patent. Common carotid arteries, carotid bifurcations, and cervical internal carotid arteries are patent. The proximal left vertebral artery is not well seen due to small calibe r and motion. Given this limitation, the cervical vertebral arteries are patent. The right vertebral artery is dominant. The posterior circulation is intact. Distal internal carotid arteries are patent. The anterior circulation is intact. No intracranial artery stenosis or aneurysm is identified. No obvious abnormality of the dural venous sinuses. No abnormal enhancement in the brain parenchyma. There is no cervical adenopathy. There is no saddle pulmonary embolus. Mild biapical pleural parenchy mal scarring. There is ACDF of C4-C6. There are interbody bone grafts with at least partial fusion at the disc spac es. 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 IMPRESSION: 1. No intracranial large vessel occlusion. 2. Normal CTA neck. Electronically signed by: Mahin Vilchis MD (10/22/2020 8:18 PM) [facility]
[2020-10-22 20:25] LABS: BILIRUBIN,URINE NEG (NEG); CLARITY,URINE CLOUDY; COLOR,URINE YELLOW; GLUCOSE,URINE NEG (NEG); NITRITE,URINE NEG (NEG); UROBILINOGEN,URINE 0.2 mg/dL (0.2 mg/dL)
[2020-10-22 20:26] LABS: BACTERIA,URINE FEW /HPF (0-FEW); WBC,URINE 20-40 /HPF (0-4)
[2020-10-22] MEDS ORDERED: CEPH500C PO (20:54)
[2020-10-22] MEDS ORDERED: ACETAMINOPHEN 500 MG TABLET PO ONE (21:00)
[2020-10-22] MEDS ORDERED: MORPHINE SULFATE 4 MG/ML DISP.SYRIN. IV ONE (21:00)
[2020-10-22] MEDS ORDERED: CEPHALEXIN 250 MG CAPSULE PO ONE (21:00)
== END 2020-10-22 21:11 | disposition home or self-care (01) ==
LOC: ER 17:24
DX: R55 Syncope and collapse (principal); R11.0 Nausea; G43.909 Migraine, unspecified, not intractable, without status migrainosus; F41.9 Anxiety disorder, unspecified; F32.9 Major depressive disorder, single episode, unspecified; K21.9 Gastro-esophageal reflux disease without esophagitis; E78.00 Pure hypercholesterolemia, unspecified; Z88.1 Allergy status to other antibiotic agents
CPT/HCPCS: 36415; 70450; 70496; 70498; 71045; 80053; 80307; 81001; 81025; 82947; 83735; 84443; 84484; 85025; 87086; 93005; 96374; 96375; 99285; G0480; J2270; J2765; Q9967

== ENCOUNTER 2020-11-16 17:10 | Emergency (ER) | payer OTHER ==
[~2020-11-16] VITALS: Ht 154.9 cm; Wt 78.3 kg
[~2020-11-16 17:10] MED LIST changes: +CEPH500C PO
[2020-11-16 17:30] VITALS: BP 155/99
[2020-11-16] MEDS ORDERED: ONDANSETRON ODT 4 MG TAB.RAPDIS PO ONE (18:15)
--- NOTE | 2020-11-16 18:59 | RAD ---
Exam: Chest one view INDICATION: Sore throat, TECHNIQUE: Frontal view of the chest Comparisons: 10/22/2020 FINDINGS: The cardiomediastinal silhouette and pulmonary vessels are within normal limits. The lung and pleural spaces are clear. IMPRESSION: No acute cardiopulmonary process. Electronically signed by: Florencio Maddox MD (11/16/2020 6:57 PM) [facility]
[2020-11-16] MEDS ORDERED: METOCLOPRAMIDE HCL 10 MG/2 ML VIAL. IM ONE (19:00)
--- NOTE | 2020-11-16 19:07 | PHYS DOC ---
Past History Past Medical History: Other Additional Past Medical Histor: factor IV leiden Past Surgical History: Appendectomy, Tonsillectomy, Other Additional Past Surgical Histo: lumpectomy right breast, inguinal hernia repair x3 Smoking: Non-smoker Alcohol Use: None Drug Use: None Adult General Chief Complaint Chief Complaint: SORE THROAT HPI HPI Patient is a 44-year-old female who presents to the emergency department with a chief complaint of sore throat and cough. States she got her Covid vaccination 3 days ago, and noticed yesterday she started having some muscle aches, sore throat and a dry nonproductive cough. Denies any recent travel, traumas, fevers, known ill contacts, chest pain, abdominal pain, dysuria, hematuria or blood in the stool. Endorses mild nausea and dry heaves but nothing comes up. States she did not take any medications for this. States she is able to eat and drink. Review of Systems Review of Systems Constitutional: Denies fever or chills [] Eyes: Denies change in visual acuity, redness, or eye pain [] HENT: Denies nasal congestion or sore throat [] Respiratory: Denies cough or shortness of breath [] Cardiovascular: No additional information not addressed in HPI [] GI: Denies abdominal pain, nausea, vomiting, bloody stools or diarrhea [] : Denies dysuria or hematuria [] Musculoskeletal: Denies back pain or joint pain [] Integument: Denies rash or skin lesions [] Neurologic: Denies headache, focal weakness or sensory changes [] Endocrine: Denies polyuria or polydipsia [] All other systems were reviewed and found to be within normal limits, except as documented in this note. Current Medications Current Medications Current Medications Medications (Trade) Dose Ordered Sig/Jerrod Start Time Stop Time Status Last Admin Dose Admin Ondansetron HCl (Zofran Odt) 8 mg 1X ONCE 11/16/20 18:15 11/16/20 18:25 DC Allergies Allergies Allergies Coded Allergies Type Severity Reaction Last Updated Verified clindamycin Allergy Severe 11/16/20 Yes doxycycline Allergy Intermediate VOMITING 11/16/20 No erythromycin base Allergy Unknown 11/16/20 Yes Physical Exam Physical Exam Constitutional: Well developed, well nourished, no acute distress, non-toxic appearance. [] HENT: Normocephalic, atraumatic, bilateral external ears normal, bilateral tympanic membranes normal, oropharynx moist, no oral exudates, nose normal. [] Eyes: conjunctiva normal, no discharge. [] Neck: Normal range of motion, no tenderness, supple, no stridor. [] Cardiovascular:Heart rate regular rhythm, no murmur [] Lungs & Thorax: Bilateral breath sounds clear to auscultation [] Abdomen: soft, no tenderness, no masses, no pulsatile masses. [] Skin: Warm, dry, no erythema, no rash. [] Extremities: ROM intact, no edema. [] Neurologic: Alert and oriented X 3, no focal deficits noted. [] Psychologic: Affect normal, judgement normal, mood normal. [] Current Patient Data Vital Signs Vital Signs Date Time Temp Pulse Resp B/P (MAP) Pulse Ox O2 Delivery O2 Flow Rate FiO2 11/16/20 17:30 97.7 81 17 155/99 (117) 100 Room Air EKG EKG [] Radiology/Procedures Radiology/Procedures Rate of 72, QRS of 98, QTc of 457, no STEMI [] Heart Score C/O Chest Pain: No Risk Factors: Risk Factors: DM, Current or recent (<one month) smoker, HTN, HLP, family history of CAD, obesity. Risk Scores: Risk Factors: DM, Current or recent (<one month) smoker, HTN, HLP, family history of CAD, obesity. Course & Med Decision Making Course & Med Decision Making Patient is a 44-year-old female who presents with cough, nausea, shortness of breath and sore throat 3 days after her Covid vaccination. Vital signs not concerning. Physical exam noted above. Patient offered Zofran but states she does not like it and was given Reglan. EKG noted above and normal. Chest x-ray not concerning. Centor criteria for strep 0. Patient able to take p.o. in the ED. Discussed all findings with patient and advised on symptomatic treatment at home. Advised to call primary care physician first thing in the morning to update on ED visit. Gave return precautions to the ED. Patient grateful, verbalized understanding and agreed with plan of discharge. [] Dragon Disclaimer Dragon Disclaimer This electronic medical record was generated, in whole or in part, using a voice recognition dictation system. Departure Departure: Impression: Primary Impression: Cough Additional Impressions: Sore throat Nausea Disposition: HOME / SELF CARE / HOMELESS Condition: GOOD Referrals: LANA BRANDT (PCP) Patient Instructions: Viral Syndrome Additional Instructions: Please read all the attached information. He can use Tylenol, ibuprofen, and [id number] cold medications at home as needed. Please follow-up tomorrow with your primary care physician to update on ED visit and set up a follow-up. Please come back to the ED with new or concerning symptoms as discussed. Problem Qualifiers JACQUELYN BENNETT MD November 16, 2020 19:07
--- NOTE | 2020-11-16 21:42 | EKG ---
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
== END 2020-11-16 19:20 | disposition home or self-care (01) ==
LOC: ER 17:10
DX: J02.9 Acute pharyngitis, unspecified (principal); R05 Cough; R11.0 Nausea; M79.10 Myalgia, unspecified site; Z88.1 Allergy status to other antibiotic agents
CPT/HCPCS: 36415; 71045; 84484; 87880; 93005; 96372; 99285; J2765

== ENCOUNTER 2020-11-18 14:45 | Emergency (ER) | payer OTHER ==
[~2020-11-18] VITALS: Ht 154.9 cm; Wt 78.3 kg
[2020-11-18 14:48] VITALS: BP 149/86
--- NOTE | 2020-11-18 15:25 | PHYS DOC ---
Past History Past Medical History: Other Additional Past Medical Histor: factor IV leiden Past Surgical History: Appendectomy, Tonsillectomy, Other Additional Past Surgical Histo: lumpectomy right breast, inguinal hernia repair x3 Smoking: Non-smoker Alcohol Use: None Drug Use: None Adult General Chief Complaint Chief Complaint: NAUSEA/VOMITING/DIARRHEA HPI HPI Patient is a 44-year-old female who comes to the emergency department stating she was told to come in for IV fluids. Patient states she was called by a staff member of [facility] emergency department to review her last ER visit and to see if she was feeling better, patient states she told him she had continual dry heaving and felt like she needed IV fluids, was not given any antinausea prescription to go home with. Patient states this male staff member told her to come back to the emergency department for IV fluids. Patient reports ongoing throat discomfort however denies pain stating that it just feels like a burning sensation. Patient reports she has not vomited however is still nauseated and having frequent dry heaving episodes. Patient denies any chest pain, shortness of breath, abdominal pain, urinary problems, diarrhea or constipation. Patient denies seeing any blood in her stool or in her vomitus. Patient states that she is able to eat and drink however when she vomits nothing comes up. Patient denies any fever or chills at home. Review of Systems Review of Systems 14 body systems of review of systems have been reviewed. See HPI for pertinent positives and negative responses, otherwise all other systems are negative, nonpertinent or noncontributory. Current Medications Current Medications Current Medications Medications (Trade) Dose Ordered Sig/Jerrod Start Time Stop Time Status Last Admin Dose Admin Metoclopramide HCl (Reglan Vial) 10 mg 1X ONCE 11/18/20 15:15 11/18/20 15:16 Sodium Chloride 1,000 ml @ 1,000 mls/hr 1X ONCE 11/18/20 15:15 11/18/20 16:14 Allergies Allergies Allergies Coded Allergies Type Severity Reaction Last Updated Verified clindamycin Allergy Severe 11/16/20 Yes doxycycline Allergy Intermediate VOMITING 11/16/20 No erythromycin base Allergy Unknown 11/16/20 Yes Physical Exam Physical Exam Constitutional: Well developed, well nourished, no acute distress, non-toxic appearance. 44-year-old female in no apparent distress. HENT: Normocephalic, atraumatic, bilateral external ears normal, oropharynx moist, no oral exudates, nose normal. Oropharynx moist, pink, no deep tissue infectious process appreciated, no uvular edema, no laryngeal edema, no peritonsillar swelling or cobblestoning appreciated, no drooling, no trismus, no lymphadenopathy of the head or neck appreciated. Eyes: PERRLA, EOMI, conjunctiva normal, no discharge. Neck: Normal range of motion, no tenderness, supple, no stridor. No meningismus signs, no nuchal rigidity. Cardiovascular:Heart rate regular rhythm, no murmur, heart sounds S1-S2 to auscultation. Lungs & Thorax: Bilateral breath sounds clear to auscultation no adventitious lung sounds appreciated. Abdomen: Bowel sounds normal, soft, no tenderness, no masses, no pulsatile masses. Skin: Warm, dry, no erythema, no rash. Good skin turgor. Back: No tenderness, no CVA tenderness. Extremities: No tenderness, no cyanosis, no clubbing, ROM intact, no edema. Distal cap refill less than 2 seconds. Neurologic: Alert and oriented X 3, normal motor function, normal sensory function, no focal deficits noted. Psychologic: Affect normal, judgement normal, mood normal. Current Patient Data Vital Signs Vital Signs Date Time Temp Pulse Resp B/P (MAP) Pulse Ox O2 Delivery O2 Flow Rate FiO2 11/18/20 14:45 98.3 90 18 149/86 (107) 98 Room Air Lab Results Laboratory Tests Test 11/18/20 15:15 11/18/20 15:48 White Blood Count 5.8 x10^3/uL Red Blood Count 3.92 x10^6/uL Hemoglobin 11.3 g/dL Hematocrit 32.9 % Mean Corpuscular Volume 84 fL Mean Corpuscular Hemoglobin 29 pg Mean Corpuscular Hemoglobin Concent 34 g/dL Red Cell Distribution Width 15.0 % Platelet Count 294 x10^3/uL Neutrophils (%) (Auto) 62 % Lymphocytes (%) (Auto) 29 % Monocytes (%) (Auto) 7 % Eosinophils (%) (Auto) 1 % Basophils (%) (Auto) 1 % Neutrophils # (Auto) 3.6 x10^3uL Lymphocytes # (Auto) 1.7 x10^3/uL Monocytes # (Auto) 0.4 x10^3/uL Eosinophils # (Auto) 0.1 x10^3/uL Basophils # (Auto) 0.0 x10^3/uL Urine Collection Type Unknown Urine Color Yellow Urine Clarity Clear Urine pH 5.0 Urine Specific [employer] >=1.030 Urine Protein Trace Urine Glucose (UA) Neg mg/dL Urine Ketones (Stick) Neg mg/dL Urine Blood Trace Urine Nitrite Neg Urine Bilirubin Neg Urine Urobilinogen Dipstick 0.2 mg/dL Urine Leukocyte Esterase Neg Urine RBC 3-5 /HPF Urine WBC 20-40 /HPF Urine Squamous Epithelial Cells Few /LPF Urine Bacteria 0 /HPF Urine Mucus Slight /LPF Sodium Level 146 mmol/L Potassium Level 3.4 mmol/L Chloride Level 110 mmol/L Carbon Dioxide Level 27 mmol/L Anion Gap 9 Blood Urea Nitrogen 13 mg/dL Creatinine 1.1 mg/dL Estimated GFR (Cockcroft-Gault) 54.2 BUN/Creatinine Ratio 12 Glucose Level 129 mg/dL Calcium Level 8.9 mg/dL Total Bilirubin 0.2 mg/dL Aspartate Amino Transf (AST/SGOT) 16 U/L Alanine Aminotransferase (ALT/SGPT) 23 U/L Alkaline Phosphatase 117 U/L Total Protein 7.2 g/dL Albumin 3.5 g/dL Albumin/Globulin Ratio 0.9 Current Medications Medications (Trade) Dose Ordered Sig/Jerrod Route PRN Reason Start Time Stop Time Status Last Admin Dose Admin Sodium Chloride 1,000 ml @ 1,000 mls/hr 1X ONCE IV 11/18/20 15:15 11/18/20 16:14 DC 11/18/20 15:31 Metoclopramide HCl (Reglan Vial) 10 mg 1X ONCE IVP 11/18/20 15:15 11/18/20 15:16 DC 11/18/20 15:30 EKG EKG [] Radiology/Procedures Radiology/Procedures [] Heart Score C/O Chest Pain: No Risk Factors: Risk Factors: DM, Current or recent (<one month) smoker, HTN, HLP, family history of CAD, obesity. Risk Scores: Risk Factors: DM, Current or recent (<one month) smoker, HTN, HLP, family history of CAD, obesity. Course & Med Decision Making Course & Med Decision Making Pertinent Labs and Imaging studies reviewed. (See chart for details) 44-year-old female, vital signs reviewed, presents to the emergency department for IV fluids stating she was directed by a [facility] emergency room staff member to do so. Physical examination nonconcerning, patient does complain of ongoing sore throat however Centor criteria equals 1, strep screening not recommended, low likelihood of strep pharyngitis, no recommendation for antibiotics. Discussed with patient will insert IV, draw labs to rule out severe dehydration, will give 1 L normal saline, will obtain urine sample for urinalysis assay. Will give 10 mg IV Reglan for reported nausea. Patient amenable to this plan. Patient has normal saline infused, patient sodium level and chloride level critically high at 146 and 110 respectively, patient's potassium level slightly low at 3.4. Upon reexamination of the patient, found the patient symptom-free, patient states she feels 100% better and is ready to go home. Patient states she is happy with her care and is thankful for getting her IV saline infusion. Discussed with patient potassium level and need to eat potassium rich foods at home, increase her fluid intake. Will prescribe p.o. Reglan for intermittent nausea at home. Discussed with patient strict follow-up with primary care this Saturday if not feeling better. Patient gave verbal understanding of discharge instructions, follow-up with PCP, return to ER concerns, had no further questions or concerns and was discharged home without incident. Dragon Disclaimer Dragon Disclaimer This electronic medical record was generated, in whole or in part, using a voice recognition dictation system. Departure Departure: Impression: Primary Impression: Dehydration Additional Impression: Nausea Disposition: HOME / SELF CARE / HOMELESS Condition: GOOD Referrals: LANA BRANDT (PCP) Additional Instructions: You were seen today in the emergency department for dehydration and nausea. You were given 1 L normal saline intravenously and 10 mg of IV Reglan for nausea. You had stated that you feel much better and your nausea has been resolved. Your lab work as we discussed showed a slightly low potassium level, it was not low enough that you require a potassium supplement immediately however I do recommend you eat potassium rich foods at home such as bananas and dark green leafy vegetables. As we discussed, I am prescribing you Reglan for ongoing intermittent nausea. Please follow-up with your primary care physician this coming Saturday if symptoms are not resolving soon. Please return to the emergency department for worsening symptoms or other concerns. EMERGENCY DEPARTMENT GENERAL DISCHARGE INSTRUCTIONS Thank you for coming to [facility] (ED) today and trusting us with you care. We trust that you had a positivie experience in our Emergency Department. If you wish to speak to the department management, you may call the director at [phone]. YOUR FOLLOW UP INSTRUCTIONS ARE FOLLOWS: 1. Do you have a private Doctor? If you do not have a private doctor, please ask for a resource list of physicians or clinics that may be able to assist you with follow up care. 2. The Emergency Physician has interpreted your x-rays. The X-Ray specialist will also review them. If there is a change in the findings, you will be notified in 48 hours when at all possible. 3. A lab test or culture has been done, your results will be reviewed and you will be notified if you need a change in treatment. ADDITIONAL INSTRUCTIONS AND INFORMATION: 1. Your care today has been supervised by a physician who is specially trained in emergency care. Many problems require more than one evaluation for a complete diagnosis and treatment. We recommend that you schedule your follow up appointment as recommended to ensure complete treatment of you illness or injury. If you are unable to obtain follow up care and continue to have a problem, or if your condition worsens, we recommend that you return to the ED. 2. We are not able to safely determine your condition over the phone nor are we able to give sound medical advice over the phone. For these safety reasons, if you call for medical advice we will ask you to come to the ED for further evaluation. 3. If you have any questions regarding these discharge instructions please call the ED at [phone]. SAFETY INFORMATION: In the interest of safety, wellness, and injury prevention; we encourage you to wear your sealbelt, if you smoke; quite smoking, and we encourage family to use a protective helmet for bicycling and other sporting events that present an increased risk for head injury. IF YOUR SYMPTOMS WORSEN OR NEW SYMPTOMS DEVELOP, OR YOU HAVE CONCERNS ABOUT YOUR CONDITION; OR IF YOUR CONDITION WORSENS WHILE YOU ARE WAITING FOR YOUR FOLLOW UP APPOINTMENT; EITHER CONTACT YOUR PRIMARY CARE DOCTOR, THE PHYSICIAN WHOSE NAME AND NUMBER YOU WERE GIVEN, OR RETURN TO THE ED IMMEDIATELY. Scripts Metoclopramide Hcl (REGLAN) 10 Mg Tablet 1 TAB PO Q4-6HRS PRN for NAUSEA/VOMITING for 30 Days, #20 TAB 0 Refills before food and bedtime Prov: RENA WILLIS APRN 11/18/20 Problem Qualifiers RENA WILLIS APRN November 18, 2020 15:25
[2020-11-18] MEDS: METOCLOPRAMIDE HCL 10 MG/2 ML VIAL. IVP ONE (15:30)
[2020-11-18] MEDS: IV NORMAL SALINE 1,000ML 1,000 ML IV ONE (15:31)
[2020-11-18 15:33] LABS: BASO % 1 % (0-3); EOS # 0.1 x10^3/uL (0.0-0.7); EOS % 1 % (0-3); HEMATOCRIT 32.9 % (36.0-47.0); HEMOGLOBIN 11.3 g/dL (12.0-15.5); LYMPH # 1.7 x10^3/uL (1.0-4.8); LYMPH % 29 % (24-48); MEAN CORPUSCULAR HEMOGLOBIN 29 pg (25-35); MEAN CORPUSCULAR HGB CONC 34 g/dL (31-37); MEAN CORPUSCULAR VOLUME 84 fL (79-100); MONO # 0.4 x10^3/uL (0.0-1.1); MONO % 7 % (0-9); NEUT # 3.6 x10^3uL (1.8-7.7); NEUT % 62 % (31-73); PLATELET COUNT 294 x10^3/uL (140-400); RED BLOOD COUNT 3.92 x10^6/uL (3.50-5.40); WHITE BLOOD COUNT 5.8 x10^3/uL (4.0-11.0)
[2020-11-18 15:46] LABS: BILIRUBIN,URINE NEG (NEG); CLARITY,URINE CLEAR; COLOR,URINE YELLOW; GLUCOSE,URINE NEG (NEG)
[2020-11-18 15:47] LABS: BACTERIA,URINE 0 /HPF (0-FEW); NITRITE,URINE NEG (NEG); SQUAMOUS EPITHELIAL CELL,UR FEW /LPF; UROBILINOGEN,URINE 0.2 mg/dL (0.2 mg/dL); WBC,URINE 20-40 /HPF (0-4)
[2020-11-18 16:09] LABS: CALCIUM 8.9 mg/dL (8.5-10.1); CREATININE 1.1 mg/dL (0.6-1.0); GFR 54.2; POTASSIUM 3.4 mmol/L (3.5-5.1)
[2020-11-18 16:14] LABS: ALBUMIN 3.5 g/dL (3.4-5.0); ALBUMIN/GLOBULIN RATIO 0.9 (1.0-1.7); TOTAL BILIRUBIN 0.2 mg/dL (0.2-1.0); TOTAL PROTEIN 7.2 g/dL (6.4-8.2)
[2020-11-18] MEDS ORDERED: METO10TA81 PO (16:52)
== END 2020-11-18 16:57 | disposition home or self-care (01) ==
LOC: ER 14:45
DX: E86.0 Dehydration (principal); Z88.1 Allergy status to other antibiotic agents
CPT/HCPCS: 36415; 80053; 81001; 85025; 87086; 96361; 96374; 99283; J2765; J7030

== ENCOUNTER 2020-12-11 12:11 | Emergency (ER) | payer OTHER ==
[~2020-12-11] VITALS: Ht 154.9 cm; Wt 78.3 kg
[2020-12-11] MEDS ORDERED: IV NORMAL SALINE 1,000ML 1,000 ML IV ONE (14:00)
[2020-12-11] MEDS ORDERED: ONDANSETRON PF 4 MG/2 ML VIAL. IVP ONE (14:00)
[2020-12-11 14:40] LABS: BILIRUBIN,URINE NEG (NEG); CLARITY,URINE CLEAR; COLOR,URINE YELLOW; GLUCOSE,URINE NEG (NEG); NITRITE,URINE NEG (NEG); UROBILINOGEN,URINE 0.2 mg/dL (0.2 mg/dL)
[2020-12-11 14:41] LABS: BACTERIA,URINE 0 /HPF (0-FEW); RBC,URINE 0 /HPF (0-2); SQUAMOUS EPITHELIAL CELL,UR OCC /LPF; WBC,URINE 0 /HPF (0-4)
[2020-12-11 14:59] LABS: BASO % 1 % (0-3); EOS # 0.1 x10^3/uL (0.0-0.7); EOS % 1 % (0-3); HEMATOCRIT 33.9 % (36.0-47.0); HEMOGLOBIN 11.4 g/dL (12.0-15.5); LYMPH # 1.6 x10^3/uL (1.0-4.8); LYMPH % 28 % (24-48); MEAN CORPUSCULAR HEMOGLOBIN 28 pg (25-35); MEAN CORPUSCULAR HGB CONC 34 g/dL (31-37); MEAN CORPUSCULAR VOLUME 85 fL (79-100); MONO # 0.4 x10^3/uL (0.0-1.1); MONO % 6 % (0-9); NEUT # 3.8 x10^3uL (1.8-7.7); NEUT % 64 % (31-73); PLATELET COUNT 269 x10^3/uL (140-400); RED CELL DISTRIBUTION WIDTH 15.6 % (11.5-14.5); WHITE BLOOD COUNT 5.9 x10^3/uL (4.0-11.0)
[2020-12-11] MEDS ORDERED: IOHEXOL 300 MG/ML 75 ML VIAL. IV ONE (15:00)
[2020-12-11 15:06] LABS: CALCIUM 9.3 mg/dL (8.5-10.1); CREATININE 0.8 mg/dL (0.6-1.0); GFR 77.9; POTASSIUM 4.2 mmol/L (3.5-5.1)
[2020-12-11 15:14] LABS: ALBUMIN 3.6 g/dL (3.4-5.0); TOTAL BILIRUBIN 0.5 mg/dL (0.2-1.0); TOTAL PROTEIN 7.1 g/dL (6.4-8.2)
[2020-12-11] MEDS ORDERED: METOCLOPRAMIDE HCL 10 MG/2 ML VIAL. IVP ONE (15:30)
--- NOTE | 2020-12-11 15:58 | RAD ---
PQRS Compliance Statement: One or more of the following individualized dose reduction techniques were utilized for this examinat ion: 1. Automated exposure control 2. Adjustment of the mA and/or kV according to patient size 3. Use of iterative reconstruction technique CT ABDOMEN+PELVIS W Clinical Indication: Reason: low right pelvic pain Comparison: CT chest abdomen and pelvis with contrast April 02, 2018. Technique: Helical CT imaging of the abdomen and pelvis is performed after 75 cc of Omnipaque 300 IV contrast. Oral contrast not administered. Findings: Lung bases are essentially clear. Cardiac size normal. Liver, gallbladder, spleen, pancreas, adrenal glands, abdominal aorta, and kidneys are normal. No obvious abnormality the stomach. No small bowel obstruction. Appendectomy. Scattered stool in the colon. No colon wall thickening. No abdominal adenopathy or free fluid. Bilateral tubal ligation clips. Uterus unremarkable. The urinary bladder is normal. No pelvic free fl uid. There is mild right lower abdomen ventral abdominal wall scarring, less than on prior study, andrés ge [id number]. No acute bone abnormality. IMPRESSION: No acute abdominal or pelvic abnormality. Electronically signed by: Mahin Vilchis MD (12/11/2020 3:55 PM) PATY
--- NOTE | 2020-12-11 17:24 | PHYS DOC ---
Past History Past Medical History: Cancer, GERD, High Cholesterol, Hypertension, Other Additional Past Medical Histor: factor IV leiden Past Surgical History: Appendectomy, Cancer Surgery, Tonsillectomy, Tubal ligation, Other Additional Past Surgical Histo: lumpectomy right breast, inguinal hernia repair x3 Smoking: Non-smoker Alcohol Use: None Drug Use: None Adult General Chief Complaint Chief Complaint: PELVIC PAIN HPI HPI Patient is a 45-year-old female presents emergency department reporting nausea and vomiting yesterday, states she had to go home from work because it was so bad, patient states she woke up this morning with mild right lower quadrant pain, states that she went to work and it became so bad that she had to leave work so she came straight to the emergency department. Patient denies any vomiting today, states she does feel nauseated, reports her right lower quadrant pain is a 10 out of 10 pain. Patient denies chest pain, chest congestion, nasal congestion, recent fever or chills, increased thirst or increased urination, denies rashes of her skin. Patient denies urinary tract infection type signs and symptoms, denies vaginal discharge. Patient denies any other physical complaints or physical concerns. Review of Systems Review of Systems 14 body systems of review of systems have been reviewed. See HPI for pertinent positives and negative responses, otherwise all other systems are negative, nonpertinent or noncontributory. Current Medications Current Medications Current Medications Medications (Trade) Dose Ordered Sig/Jerrod Start Time Stop Time Status Last Admin Dose Admin Fentanyl Citrate (Fentanyl 2ml Vial) 100 mcg 1X ONCE 12/11/20 14:00 12/11/20 14:07 DC 12/11/20 15:12 100 MCG Iohexol (Omnipaque 300 Mg/ml) 75 ml 1X ONCE 12/11/20 15:00 12/11/20 15:01 DC Metoclopramide HCl (Reglan Vial) 10 mg 1X ONCE 12/11/20 15:30 12/11/20 15:31 DC 12/11/20 16:20 10 MG Ondansetron HCl (Zofran) 4 mg 1X ONCE 12/11/20 14:00 12/11/20 14:07 DC Sodium Chloride 1,000 ml @ 1,000 mls/hr 1X ONCE 12/11/20 14:00 12/11/20 14:59 DC 12/11/20 15:13 1,000 MLS/HR Allergies Allergies Allergies Coded Allergies Type Severity Reaction Last Updated Verified clindamycin Allergy Severe 11/16/20 Yes doxycycline Allergy Intermediate VOMITING 11/16/20 No erythromycin base Allergy Unknown 11/16/20 Yes ibuprofen Allergy Unknown 12/11/20 Yes Physical Exam Physical Exam Constitutional: Well developed, well nourished, no acute distress, non-toxic appearance. 45-year-old female no apparent distress, patient complains of pain exceeds patient's physical appearance and presentation. HENT: Normocephalic, atraumatic, bilateral external ears normal, oropharynx moist, no oral exudates, nose normal. Eyes: PERRLA, EOMI, conjunctiva normal, no discharge. Neck: Normal range of motion, no tenderness, supple, no stridor. Cardiovascular:Heart rate regular rhythm, no murmur, heart sounds S1-S2 to auscultation. Lungs & Thorax: Bilateral breath sounds clear to auscultation no adventitious lung sounds appreciated. Abdomen: Bowel sounds normal, soft, no tenderness, no masses, no pulsatile masses. Negative Lara sign, negative psoas sign, negative rebound tenderness, positive McBurney's point tenderness. Surgical scars of abdomen well-healed. No ecchymosis or skin discoloration of the abdomen. Skin: Warm, dry, no erythema, no rash. Back: No tenderness, no CVA tenderness. Extremities: No tenderness, no cyanosis, no clubbing, ROM intact, no edema. Neurologic: Alert and oriented X 3, normal motor function, normal sensory function, no focal deficits noted. Psychologic: Affect normal, judgement normal, mood normal. Current Patient Data Vital Signs Vital Signs Date Time Temp Pulse Resp B/P (MAP) Pulse Ox O2 Delivery O2 Flow Rate FiO2 12/11/20 15:12 Room Air 12/11/20 12:15 98.6 87 16 149/86 (107) 99 Lab Results Laboratory Tests Test 12/11/20 14:00 12/11/20 14:40 Urine Collection Type Unknown Urine Color Yellow Urine Clarity Clear Urine pH 8.0 Urine Specific [place] 1.015 Urine Protein Neg (NEG-TRACE) Urine Glucose (UA) Neg mg/dL (NEG) Urine Ketones (Stick) Neg mg/dL (NEG) Urine Blood Neg (NEG) Urine Nitrite Neg (NEG) Urine Bilirubin Neg (NEG) Urine Urobilinogen Dipstick 0.2 mg/dL (0.2 mg/dL) Urine Leukocyte Esterase Neg (NEG) Urine RBC 0 /HPF (0-2) Urine WBC 0 /HPF (0-4) Urine Squamous Epithelial Cells Occ /LPF Urine Bacteria 0 /HPF (0-FEW) White Blood Count 5.9 x10^3/uL (4.0-11.0) Red Blood Count 4.00 x10^6/uL (3.50-5.40) Hemoglobin 11.4 g/dL (12.0-15.5) L Hematocrit 33.9 % (36.0-47.0) L Mean Corpuscular Volume 85 fL (79-100) Mean Corpuscular Hemoglobin 28 pg (25-35) Mean Corpuscular Hemoglobin Concent 34 g/dL (31-37) Red Cell Distribution Width 15.6 % (11.5-14.5) H Platelet Count 269 x10^3/uL (140-400) Neutrophils (%) (Auto) 64 % (31-73) Lymphocytes (%) (Auto) 28 % (24-48) Monocytes (%) (Auto) 6 % (0-9) Eosinophils (%) (Auto) 1 % (0-3) Basophils (%) (Auto) 1 % (0-3) Neutrophils # (Auto) 3.8 x10^3uL (1.8-7.7) Lymphocytes # (Auto) 1.6 x10^3/uL (1.0-4.8) Monocytes # (Auto) 0.4 x10^3/uL (0.0-1.1) Eosinophils # (Auto) 0.1 x10^3/uL (0.0-0.7) Basophils # (Auto) 0.0 x10^3/uL (0.0-0.2) Sodium Level 141 mmol/L (136-145) Potassium Level 4.2 mmol/L (3.5-5.1) Chloride Level 102 mmol/L (98-107) Carbon Dioxide Level 28 mmol/L (21-32) Anion Gap 11 (6-14) Blood Urea Nitrogen 8 mg/dL (7-20) Creatinine 0.8 mg/dL (0.6-1.0) Estimated GFR (Cockcroft-Gault) 77.9 BUN/Creatinine Ratio 10 (6-20) Glucose Level 109 mg/dL (70-99) H Lactic Acid Level 1.3 mmol/L (0.4-2.0) Calcium Level 9.3 mg/dL (8.5-10.1) Total Bilirubin 0.5 mg/dL (0.2-1.0) Aspartate Amino Transferase (AST) 36 U/L (15-37) Alanine Aminotransferase (ALT) 34 U/L (14-59) Alkaline Phosphatase 132 U/L (46-116) H Total Protein 7.1 g/dL (6.4-8.2) Albumin 3.6 g/dL (3.4-5.0) Albumin/Globulin Ratio 1.0 (1.0-1.7) Lipase 79 U/L (73-393) EKG EKG [] Radiology/Procedures Radiology/Procedures PATIENT: TERI KAT AACCOUNT: [id number] : 1975 LOCATION: ER AGE: 45 SEX: F EXAM STATUS: REG ER ORD. PHYSICIAN: RENA WILLIS APRN REASON: low right pelvic pain PROCEDURE: CT ABD PELV W/ IV CONTRST ONLY PQRS Compliance Statement: One or more of the following individualized dose reduction techniques were utilized for this examination: 1. Automated exposure control 2. Adjustment of the mA and/or kV according to patient size 3. Use of iterative reconstruction technique CT ABDOMEN+PELVIS W Clinical Indication: Reason: low right pelvic pain Comparison: CT chest abdomen and pelvis with contrast April 02, 2018. Technique: Helical CT imaging of the abdomen and pelvis is performed after 75 cc of Omnipaque 300 IV contrast. Oral contrast not administered. Findings: Lung bases are essentially clear. Cardiac size normal. Liver, gallbladder, spleen, pancreas, adrenal glands, abdominal aorta, and kidneys are normal. No obvious abnormality the stomach. No small bowel obstruction. Appendectomy. Scattered stool in the colon. No colon wall thickening. No abdominal adenopathy or free fluid. Bilateral tubal ligation clips. Uterus unremarkable. The urinary bladder is normal. No pelvic free fluid. There is mild right lower abdomen ventral abdominal wall scarring, less than on prior study, image 67. No acute bone abnormality. IMPRESSION: No acute abdominal or pelvic abnormality. Electronically signed by: Mahin Vilchis MD (12/11/2020 3:55 PM) [facility] DICTATED AND SIGNED BY: MAHIN VILCHIS MD DATE: 12/11/20 1547 CC: RENA WILLIS APRN; AYLA LEGGETT DO; LANA BRANDT ~MTH0 0 Heart Score C/O Chest Pain: No Risk Factors: Risk Factors: DM, Current or recent (<one month) smoker, HTN, HLP, family history of CAD, obesity. Risk Scores: Risk Factors: DM, Current or recent (<one month) smoker, HTN, HLP, family history of CAD, obesity. Course & Med Decision Making Course & Med Decision Making Pertinent Labs and Imaging studies reviewed. (See chart for details) 45-year-old female, vital signs reviewed, presents emergency department with complaints of right lower quadrant pain that started this morning when she woke up. Physical examination concerning for acute abdomen infectious process versus perforation. Patient does report that she does not have a gallbladder or appendix. Patient is currently requesting a work excuse to go back to work this . We will start acute abdomen work-up, 1 L normal saline, 4 mg IV Zofran, [address] imaging of abdomen pelvis with IV contrast negative for acute process. Discussed findings with patient, patient states that she would like a work excuse so she can go home, patient states that her pain is down to about a 1 or 2. Discussed with patient strict follow-up with her primary care physician for her ongoing abdominal pains. The patient's labs were unremarkable, her urine was not infected. Patient gave verbal understanding of discharge home instructions, follow-up with PCP this coming Saturday or Saturday, return to ER precautions and concerns, patient had no further questions or concerns, patient remains nontoxic and in no apparent distress at discharge, patient was discharged home without incident. Dragon Disclaimer Dragon Disclaimer This electronic medical record was generated, in whole or in part, using a voice recognition dictation system. Departure Departure: Impression: Primary Impression: Abdominal pain Disposition: HOME / SELF CARE / HOMELESS Condition: GOOD Referrals: LANA BRANDT (PCP) Patient Instructions: Abdominal Pain Additional Instructions: You were seen today in the emergency department for abdominal pain on the right lower side, your lab work did not show any concerning findings, your urine was not infected, CT imaging of your abdomen was normal and did not show any concerning findings. Please follow-up Saturday or Saturday with your primary care physician for ongoing abdominal pain. Please return to the emergency department for worsening symptoms or other concerns. EMERGENCY DEPARTMENT GENERAL DISCHARGE INSTRUCTIONS Thank you for coming to [facility] (ED) today and trusting us with you care. We trust that you had a positivie experience in our Emergency Department. If you wish to speak to the department management, you may call the director at [phone]. YOUR FOLLOW UP INSTRUCTIONS ARE FOLLOWS: 1. Do you have a private Doctor? If you do not have a private doctor, please ask for a resource list of physicians or clinics that may be able to assist you with follow up care. 2. The Emergency Physician has interpreted your x-rays. The X-Ray specialist will also review them. If there is a change in the findings, you will be notified in 48 hours when at all possible. 3. A lab test or culture has been done, your results will be reviewed and you will be notified if you need a change in treatment. ADDITIONAL INSTRUCTIONS AND INFORMATION: 1. Your care today has been supervised by a physician who is specially trained in emergency care. Many problems require more than one evaluation for a complete diagnosis and treatment. We recommend that you schedule your follow up appointment as recommended to ensure complete treatment of you illness or injury. If you are unable to obtain follow up care and continue to have a problem, or if your condition worsens, we recommend that you return to the ED. 2. We are not able to safely determine your condition over the phone nor are we able to give sound medical advice over the phone. For these safety reasons, if you call for medical advice we will ask you to come to the ED for further evaluation. 3. If you have any questions regarding these discharge instructions please call the ED at [phone]. SAFETY INFORMATION: In the interest of safety, wellness, and injury prevention; we encourage you to wear your sealbelt, if you smoke; quite smoking, and we encourage family to use a protective helmet for bicycling and other sporting events that present an increased risk for head injury. IF YOUR SYMPTOMS WORSEN OR NEW SYMPTOMS DEVELOP, OR YOU HAVE CONCERNS ABOUT YOUR CONDITION; OR IF YOUR CONDITION WORSENS WHILE YOU ARE WAITING FOR YOUR FOLLOW UP APPOINTMENT; EITHER CONTACT YOUR PRIMARY CARE DOCTOR, THE PHYSICIAN WHOSE NAME AND NUMBER YOU WERE GIVEN, OR RETURN TO THE ED IMMEDIATELY. Problem Qualifiers Primary Impression: Abdominal pain Abdominal location: right lower quadrant Qualified Codes: R10.31 - Right lower quadrant pain RENA WILLIS [employer]IONAL AGRONOMIST Dec 11, 2020 17:24
[2020-12-11 17:35] VITALS: BP 132/78
== END 2020-12-11 17:35 | disposition home or self-care (01) ==
LOC: ER 12:11
DX: R10.31 Right lower quadrant pain (principal); R11.2 Nausea with vomiting, unspecified; K21.9 Gastro-esophageal reflux disease without esophagitis; E78.5 Hyperlipidemia, unspecified; I10 Essential (primary) hypertension; Z98.51 Tubal ligation status
CPT/HCPCS: 36415; 74177; 80053; 81001; 82947; 83605; 83690; 85025; 96361; 96374; 96375; 99285; J2765; J3010; J7030

== ENCOUNTER 2020-12-29 22:21 | Emergency (ER) | payer OTHER ==
[~2020-12-29] VITALS: Ht 154.9 cm; Wt 78.3 kg
[2020-12-29 23:21] LABS: BASO # 0.1 x10^3/uL (0.0-0.2); BASO % 1 % (0-3); EOS # 0.1 x10^3/uL (0.0-0.7); EOS % 1 % (0-3); HEMATOCRIT 33.8 % (36.0-47.0); HEMOGLOBIN 11.3 g/dL (12.0-15.5); LYMPH % 27 % (24-48); MEAN CORPUSCULAR HEMOGLOBIN 29 pg (25-35); MEAN CORPUSCULAR HGB CONC 33 g/dL (31-37); MEAN CORPUSCULAR VOLUME 86 fL (79-100); MONO # 0.5 x10^3/uL (0.0-1.1); MONO % 7 % (0-9); NEUT # 4.5 x10^3uL (1.8-7.7); NEUT % 64 % (31-73); PLATELET COUNT 287 x10^3/uL (140-400); RED BLOOD COUNT 3.95 x10^6/uL (3.50-5.40); RED CELL DISTRIBUTION WIDTH 15.7 % (11.5-14.5); WHITE BLOOD COUNT 7.2 x10^3/uL (4.0-11.0)
[2020-12-29] MEDS: IV RINGERS SOLUTION,LACTATED 1,000 ML IV ONE (23:22)
[2020-12-29] MEDS: ONDANSETRON ODT 4 MG TAB.RAPDIS PO ONE (23:22)
[2020-12-29] MEDS: PROCHLORPERAZINE 10 MG/2 ML VIAL. IV ONE (23:22)
[2020-12-29 23:25] LABS: CALCIUM 9.5 mg/dL (8.5-10.1); CREATININE 1.2 mg/dL (0.6-1.0); GFR 48.8; POTASSIUM 3.8 mmol/L (3.5-5.1)
[2020-12-30] MEDS ORDERED: HYDR-2155 PO ×2 (00:18→00:20)
--- NOTE | 2020-12-30 00:20 | PHYS DOC ---
Past History Past Medical History: Cancer, GERD, High Cholesterol, Hypertension, Other Additional Past Medical Histor: factor IV leiden Past Surgical History: Appendectomy, Cancer Surgery, Tonsillectomy, Tubal ligation, Other Additional Past Surgical Histo: lumpectomy right breast, inguinal hernia repair x3 Smoking: Non-smoker Alcohol Use: None Drug Use: None Adult General Chief Complaint Chief Complaint: ABDOMINAL PAIN HPI HPI Patient is a 45-year-old female who presents with a chief complaints of nonbilious nonbloody emesis that started this evening. States she was doing well and worked today, came home eaten dinner and shortly after began to feel full and then nauseous and had 3 episodes of vomiting. States that her last 1 was at home before coming to the emergency department. Denies any recent travels, traumas, illnesses, fevers, chest pain, shortness of breath, dysuria, hematuria or blood in the stool. States has been otherwise eating and drinking normally for her. States he is otherwise making urine and stool normally for her and had a normal bowel movement earlier today. Review of Systems Review of Systems Review of systems otherwise unremarkable except noted in HPI Current Medications Current Medications Current Medications Medications (Trade) Dose Ordered Sig/Jerrod Start Time Stop Time Status Last Admin Dose Admin Lactated Ringer's 1,000 ml @ 1,000 mls/hr 1X ONCE 12/29/20 22:45 12/29/20 23:44 DC 12/29/20 23:22 1,000 MLS/HR Ondansetron HCl (Zofran Odt) 8 mg 1X ONCE 12/29/20 22:30 12/29/20 22:31 DC 12/29/20 23:22 8 MG Prochlorperazine Edisylate (Compazine) 10 mg 1X ONCE 12/29/20 22:45 12/29/20 22:46 DC 12/29/20 23:22 10 MG Allergies Allergies Allergies Coded Allergies Type Severity Reaction Last Updated Verified clindamycin Allergy Severe 12/29/20 Yes doxycycline Allergy Intermediate VOMITING 12/29/20 No erythromycin base Allergy Unknown 12/29/20 Yes ibuprofen Allergy Unknown 12/29/20 Yes Physical Exam Physical Exam Constitutional: Well developed, well nourished, no acute distress, non-toxic appearance. [] HENT: Normocephalic, atraumatic, Eyes: conjunctiva normal, no discharge. [] Neck: Normal range of motion, no tenderness, supple, no stridor. [] Cardiovascular: Sinus tachycardia Lungs & Thorax: Bilateral breath sounds clear to auscultation [] Abdomen: soft, no tenderness, no masses, no pulsatile masses. [] Skin: Warm, dry, no erythema, no rash. [] Back:no CVA tenderness. [] Extremities: No tenderness, ROM intact, no edema. [] Neurologic: Alert and oriented X 3, no focal deficits noted. [] Psychologic: Affect normal, judgement normal, mood normal. [] Current Patient Data Vital Signs Vital Signs Date Time Temp Pulse Resp B/P (MAP) Pulse Ox O2 Delivery O2 Flow Rate FiO2 12/29/20 22:32 98.1 118 18 174/125 Room Air Lab Results Laboratory Tests Test 12/29/20 23:00 White Blood Count 7.2 x10^3/uL (4.0-11.0) Red Blood Count 3.95 x10^6/uL (3.50-5.40) Hemoglobin 11.3 g/dL (12.0-15.5) L Hematocrit 33.8 % (36.0-47.0) L Mean Corpuscular Volume 86 fL (79-100) Mean Corpuscular Hemoglobin 29 pg (25-35) Mean Corpuscular Hemoglobin Concent 33 g/dL (31-37) Red Cell Distribution Width 15.7 % (11.5-14.5) H Platelet Count 287 x10^3/uL (140-400) Neutrophils (%) (Auto) 64 % (31-73) Lymphocytes (%) (Auto) 27 % (24-48) Monocytes (%) (Auto) 7 % (0-9) Eosinophils (%) (Auto) 1 % (0-3) Basophils (%) (Auto) 1 % (0-3) Neutrophils # (Auto) 4.5 x10^3uL (1.8-7.7) Lymphocytes # (Auto) 2.0 x10^3/uL (1.0-4.8) Monocytes # (Auto) 0.5 x10^3/uL (0.0-1.1) Eosinophils # (Auto) 0.1 x10^3/uL (0.0-0.7) Basophils # (Auto) 0.1 x10^3/uL (0.0-0.2) Sodium Level 142 mmol/L (136-145) Potassium Level 3.8 mmol/L (3.5-5.1) Chloride Level 104 mmol/L (98-107) Carbon Dioxide Level 25 mmol/L (21-32) Anion Gap 13 (6-14) Blood Urea Nitrogen 14 mg/dL (7-20) Creatinine 1.2 mg/dL (0.6-1.0) H Estimated GFR (Cockcroft-Gault) 48.8 Glucose Level 205 mg/dL (70-99) H Calcium Level 9.5 mg/dL (8.5-10.1) EKG EKG [] Radiology/Procedures Radiology/Procedures [] Heart Score C/O Chest Pain: No Risk Factors: Risk Factors: DM, Current or recent (<one month) smoker, HTN, HLP, family history of CAD, obesity. Risk Scores: Risk Factors: DM, Current or recent (<one month) smoker, HTN, HLP, family history of CAD, obesity. Course & Med Decision Making Course & Med Decision Making Patient is a 45-year-old female who presents to the emergency department with a chief complaint of nausea vomiting vital signs notable for tachycardia and hypertension. Vital signs normalized shortly after arriving to the emergency department and stayed normal through resuscitation and symptom management. Physical exam noted above. Given nausea medicine and pain medicine. Given IV fluid. On reassessment patient states she was feeling much better and was ready to be discharged home and asked for a work note for tomorrow so she could stay home and rest. Discussed all findings with patient and advised on pain management at home. Advised on nausea management at home. Advised on diet changes in diet over the next couple of days to allow for bowel rest. Advised to call primary care physician first thing in the morning to update on ED visit. Gave return precautions to the ED. Patient grateful, verbalized understanding and agreed with plan of discharge. Dragon Disclaimer Dragon Disclaimer This electronic medical record was generated, in whole or in part, using a voice recognition dictation system. Departure Departure: Impression: Primary Impression: Nausea & vomiting Disposition: HOME / SELF CARE / HOMELESS Condition: GOOD Referrals: LANA BRANDT (PCP) Patient Instructions: Nausea and Vomiting Additional Instructions: Thank you for coming into the emergency department tonight and allowing us to take care of you. Please read all the attached information very carefully to go back over what we discussed. Please adjust your diet to a light clear diet as discussed over the next couple of days to allow bowel rest. You are given a work note for tomorrow at your request. Please take your nausea medicine that you have at home as prescribed. Please call your primary care physician first thing in the morning to update on your ED visit and set up a follow-up appointment as soon as possible. Please come back to the ED with new or con cerning symptoms as discussed. Scripts Hydrocodone Bit/Acetaminophen (HYDROCODONE-APAP 5-325 ) 1 Each Tablet 1 TAB PO TID PRN for AB pain for 2 Days, #6 TAB 0 Refills Prov: JACQUELYN BENNETT MD 12/30/20 JACQUELYN BENNETT MD Dec 30, 2020 00:20
[2020-12-30] MEDS: MORPHINE SULFATE 4 MG/ML DISP.SYRIN. IV ONE (00:25)
[2020-12-30] MEDS: MORPHINE SULFATE 2 MG/ML DISP.SYRIN. IV ONE (00:26)
[2020-12-30 00:49] VITALS: BP 108/75
== END 2020-12-30 00:55 | disposition home or self-care (01) ==
LOC: ER 22:21
DX: R11.2 Nausea with vomiting, unspecified (principal); K21.9 Gastro-esophageal reflux disease without esophagitis; E78.5 Hyperlipidemia, unspecified; I10 Essential (primary) hypertension; Z98.51 Tubal ligation status; Z88.1 Allergy status to other antibiotic agents; Z88.6 Allergy status to analgesic agent
CPT/HCPCS: 36415; 80048; 85025; 96361; 96374; 96375; 99284; J0780; J2270; J7120; Q0162

== ENCOUNTER → 2021-01-15 | Outpatient (CLI) | payer OTHER ==
[2020-12-30 00:49] VITALS: BP 108/75
[~2021-01-15] MED LIST changes: +HYDR-2155 PO
--- NOTE | 2021-01-15 19:15 | RAD ---
Study: XR LT WRIST 3VIEWS Indication: Left wrist pain. No reported injury. Comparison: None. Findings: No acute fracture, focal erosion or periostitis. Slightly increased inclination of the radial articul ar surface and mild triangulation of the carpus. Normal scapholunate interval. Ulnar variance is rela tively neutral. Unremarkable soft tissues. Impression: 1. No acute osseous abnormality. 2. Mild Madelung-type configuration of the radiocarpal interface could be developmental or the sequel a or remote injury. No significant arthrosis with maintained joint spaces. Electronically signed by: WIL ANGEL MD (01/15/2021 7:13 PM) [facility]
== END ==
LOC: DXRAD 17:46
PROVIDERS: ATTEND Nurse Practitioner Family
DX: M25.532 Pain in left wrist (principal)
CPT/HCPCS: 73110

== ENCOUNTER 2021-02-20 18:34 | Emergency (ER) | payer OTHER ==
[~2021-02-20] VITALS: Ht 154.9 cm; Wt 78.3 kg
--- NOTE | 2021-02-20 21:07 | PHYS DOC ---
Past History Past Medical History: Cancer, GERD, High Cholesterol, Hypertension, Other Additional Past Medical Histor: factor IV leiden (TATUM MCLAUGHLIN APRN) Past Surgical History: Appendectomy, Cancer Surgery, Tonsillectomy, Tubal ligation, Other Additional Past Surgical Histo: lumpectomy right breast, inguinal hernia repair x3 (TATUM MCLAUGHLIN APRN) Smoking: Non-smoker Alcohol Use: None Drug Use: None (TATUM MCLAUGHLIN APRN) General Adult EDM: Chief Complaint: POST-OP PROBLEM HPI: HPI: Patient is a 45-year-old female who presents to the ER for postop problem. Patient reports that she had a lap burke performed by Dr. Sherman this morning and this evening she started having bleeding from one of the sites. She reports that she applied pressure and the bleeding stopped. She states that she is wanted to be evaluated because she was not sure if the wound had opened up. Patient denies any nausea, vomiting, fevers. (TATUM MCLAUGHLIN APRN) Review of Systems: Review of Systems: 14 body systems of the review of systems have been reviewed. See HPI for pertinent positive and negative responses, otherwise all other systems are negative, nonpertinent or noncontributory (TATUM MCLAUGHLIN APRN) Allergies: Allergies: Allergies Coded Allergies Type Severity Reaction Last Updated Verified clindamycin Allergy Severe 12/29/20 Yes doxycycline Allergy Intermediate VOMITING 12/29/20 No erythromycin base Allergy Unknown 12/29/20 Yes ibuprofen Allergy Unknown 12/29/20 Yes (TATUM MCLAUGHLIN APRN) Physical Exam: PE: Constitutional: Well developed, well nourished, no acute distress, non-toxic appearance. [] HENT: Normocephalic, atraumatic, bilateral external ears normal, oropharynx moist, no oral exudates, nose normal. [] Eyes: PERRLA, EOMI, conjunctiva normal, no discharge. [] Neck: Normal range of motion, no stridor Cardiovascular:Heart rate regular rhythm, no murmur [] Lungs & Thorax: Bilateral breath sounds clear to auscultation [] Abdomen: Bowel sounds normal, soft, no masses, no pulsatile masses, laparoscopic wounds appear to be intact, Steri-Strips intact Skin: Warm, dry, no erythema, no rash. [] Back: No tenderness, no CVA tenderness. [] Extremities: No tenderness, no cyanosis, no clubbing, ROM intact, no edema. [] Neurologic: Alert and oriented X 3, normal motor function, normal sensory function, no focal deficits noted. [] Psychologic: Affect normal, judgement normal, mood normal. [] (TATUM MCLAUGHLIN APRN) EKG: EKG: [] (TATUM MCLAUGHLIN APRN) Radiology/Procedures: Radiology/Procedures: [] (TATUM MCLAUGHLIN APRN) Heart Score: C/O Chest Pain: No Risk Factors: Risk Factors: DM, Current or recent (<one month) smoker, HTN, HLP, family history of CAD, obesity. Risk Scores: Score 0 - 3: 2.5% MACE over next 6 weeks - Discharge Home Score 4 - 6: 20.3% MACE over next 6 weeks - Admit for Clinical Observation Score 7 - 10: 72.7% MACE over next 6 weeks - Early Invasive Strategies (TATUM MCLAUGHLIN APRN) Course & Med Decision Making: Course & Med Decision Making Pertinent Labs and Imaging studies reviewed. (See chart for details) Patient is a 45-year-old female who presents to the ER for postop bleeding. The wound is currently not bleeding. The wound is intact does not appear to be more open. Steri-Strips are in place and holding the wound. Patient advised to follow-up with Dr. Sherman. Wound dressing changed prior to discharge. Patient advised to follow-up with Dr. Sherman tomorrow. I discussed with patient all findings as well as the need to follow-up with PCP for further evaluation and treatment or return to the ER if any new or worsening symptoms. Strict return precautions were also discussed at length. Patient voiced understanding and agreement with the plan. Patient is hemodynamically stable at the time of disposition. (TATUM MCLAUGHLIN APRN) Dragon Disclaimer: Dragon Disclaimer: This electronic medical record was generated, in whole or in part, using a voice recognition dictation system. (TATUM MCLAUGHLIN APRN) Attending Co-Sign The patient was seen and interviewed as well as examined at the bedside. The chart was reviewed. The case was discussed. Agree with the plan of care. (MARIE LOVE DO) Departure Departure: Impression: Primary Impression: Post-op bleeding Qualified Codes: K91.841 - Postprocedural hemorrhage of a digestive system organ or structure following other procedure Disposition: 01 HOME / SELF CARE / HOMELESS Condition: GOOD Referrals: LANA BRANDT (PCP) Patient Instructions: Laparoscopic Cholecystectomy, Care After Additional Instructions: You were seen in the ER for post operative bleeding following a laparoscopic cholecystectomy. Your wound appears to be well approximated and the Steri- Strips are intact. Your wound dressing was changed in the ER. Please follow the post operative care instructions that you were given following your procedure. Change dressings as needed. Please monitor your wound for any additional bleeding. You need to call Dr. Sherman's office tomorrow to follow- up on this visit. If you develop worsening of your bleeding, lightheadedness, action such as redness, warmth, drainage, swelling, increased pain please go to the ER. EMERGENCY DEPARTMENT GENERAL DISCHARGE INSTRUCTIONS Thank you for coming to [facility] (ED) today and trusting us with you care. We trust that you had a positivie experience in our Emergency Department. If you wish to speak to the department management, you may call the director at [phone]. YOUR FOLLOW UP INSTRUCTIONS ARE FOLLOWS: 1. Do you have a private Doctor? If you do not have a private doctor, please ask for a resource list of physicians or clinics that may be able to assist you with follow up care. 2. The Emergency Physician has interpreted your x-rays. The X-Ray specialist will also review them. If there is a change in the findings, you will be notified in 48 hours when at all possible. 3. A lab test or culture has been done, your results will be reviewed and you will be notified if you need a change in treatment. ADDITIONAL INSTRUCTIONS AND INFORMATION: 1. Your care today has been supervised by a physician who is specially trained in emergency care. Many problems require more than one evaluation for a complete diagnosis and treatment. We recommend that you schedule your follow up appointment as recommended to ensure complete treatment of you illness or injury. If you are unable to obtain follow up care and continue to have a problem, or if your condition worsens, we recommend that you return to the ED. 2. We are not able to safely determine your condition over the phone nor are we able to give sound medical advice over the phone. For these safety reasons, if you call for medical advice we will ask you to come to the ED for further evaluation. 3. If you have any questions regarding these discharge instructions please call the ED at [phone]. SAFETY INFORMATION: In the interest of safety, wellness, and injury prevention; we encourage you to wear your sealbelt, if you smoke; quite smoking, and we encourage family to use a protective helmet for bicycling and other sporting events that present an increased risk for head injury. IF YOUR SYMPTOMS WORSEN OR NEW SYMPTOMS DEVELOP, OR YOU HAVE CONCERNS ABOUT YOUR CONDITION; OR IF YOUR CONDITION WORSENS WHILE YOU ARE WAITING FOR YOUR FOLLOW UP APPOINTMENT; EITHER CONTACT YOUR PRIMARY CARE DOCTOR, THE PHYSICIAN WHOSE NAME AND NUMBER YOU WERE GIVEN, OR RETURN TO THE ED IMMEDIATELY. TATUM MCLAUGHLIN APRN Feb 20, 2021 21:07 MARIE LOVE DO Feb 23, 2021 19:54
[2021-02-20 21:20] VITALS: BP 116/68
== END 2021-02-20 21:23 | disposition home or self-care (01) ==
LOC: ER 18:34
DX: K91.841 Postprocedural hemorrhage of a digestive system organ or structure following other procedure (principal); K21.9 Gastro-esophageal reflux disease without esophagitis; E78.00 Pure hypercholesterolemia, unspecified; I10 Essential (primary) hypertension; Z90.89 Acquired absence of other organs; Z98.51 Tubal ligation status; Z98.890 Other specified postprocedural states; Z88.1 Allergy status to other antibiotic agents; Z88.6 Allergy status to analgesic agent
CPT/HCPCS: 99282

== ENCOUNTER 2021-03-06 16:21 | Emergency (ER) | payer OTHER ==
[~2021-03-06] VITALS: Ht 154.9 cm; Wt 78.3 kg
[2021-03-06 16:42] VITALS: BP 143/100
[2021-03-06] MEDS ORDERED: IV NORMAL SALINE 1,000ML 1,000 ML IV SCH (16:45)
[2021-03-06] MEDS ORDERED: ONDANSETRON PF 4 MG/2 ML VIAL. IVP ONE (16:45)
[2021-03-06] MEDS ORDERED: CONTRAST GIVEN. MC PRN (17:00)
[2021-03-06] MEDS ORDERED: IOHEXOL 300 MG/ML 75 ML VIAL. IV ONE (17:00)
--- NOTE | 2021-03-06 17:02 | PHYS DOC ---
Past History Past Medical History: Cancer, GERD, High Cholesterol, Hypertension, Other Additional Past Medical Histor: factor IV leiden (TATUM MCLAUGHLIN APRN) Past Surgical History: Appendectomy, Cancer Surgery, Cholecystectomy, Tonsillectomy, Tubal ligation, Other Additional Past Surgical Histo: lumpectomy right breast, inguinal hernia repair x3 (TATUM MCLAUGHLIN APRN) Smoking: Non-smoker Alcohol Use: None Drug Use: None (TATUM MCLAUGHLIN APRN) General Adult EDM: Chief Complaint: POST-OP PROBLEM HPI: HPI: Patient is a 45-year-old female being seen in the ER for postop abdominal pain. Patient had a lap burke performed by Dr. Sherman on February 20. She was seen at [facility] 3 days ago for the same complaint. She had blood work and a CT scan performed of her abdomen and it was unremarkable. She was discharged home with hydrocodone and was told to follow-up with Dr. Sherman. She states that she has an appointment with Dr. Lester's nurse practitioner on Saturday. She states that her pain since her ER visit at [facility] is worsened. Patient rates her pain 8 out of 10. Does not radiate. She took hydrocodone this morning at 9 AM. She reports vomiting one time today. She denies any current nausea, diarrhea, blood in vomit/stools. Last bowel movement this morning. (TATUM MCLAUGHLIN APRN) Review of Systems: Review of Systems: 14 body systems of the review of systems have been reviewed. See HPI for pertinent positive and negative responses, otherwise all other systems are negative, nonpertinent or noncontributory (TATUM MCLAUGHLIN APRN) Current Medications: Current Meds: Current Medications Medications (Trade) Dose Ordered Sig/Jerrod Start Time Stop Time Status Last Admin Dose Admin Fentanyl Citrate (Fentanyl 2ml Vial) 50 mcg PRN Q15MIN PRN 03/06/21 16:45 03/07/21 16:44 Info (Do NOT chart on this entry -- for MONITORING) 1 each PRN DAILY PRN 03/06/21 17:00 03/08/21 16:59 Iohexol (Omnipaque 300 Mg/ml) 75 ml 1X ONCE 03/06/21 17:00 03/06/21 17:01 Ondansetron HCl (Zofran) 4 mg 1X ONCE 03/06/21 16:45 03/06/21 16:49 DC Sodium Chloride 1,000 ml @ 1,000 mls/hr Q1H 03/06/21 16:45 03/06/21 17:44 (TATUM MCLAUGHLIN APRN) Allergies: Allergies: Allergies Coded Allergies Type Severity Reaction Last Updated Verified clindamycin Allergy Severe 12/29/20 Yes doxycycline Allergy Intermediate VOMITING 12/29/20 No erythromycin base Allergy Unknown 12/29/20 Yes ibuprofen Allergy Unknown 12/29/20 Yes (TATUM MCLAUGHLIN APRN) Physical Exam: PE: Constitutional: Well developed, well nourished, no acute distress, non-toxic appearance. [] HENT: Normocephalic, atraumatic, bilateral external ears normal, oropharynx moist, no oral exudates, nose normal. [] Eyes: PERRL, EOMI, conjunctiva normal, no discharge. [] Neck: Normal range of motion, no stridor Cardiovascular:Heart rate regular rhythm, no murmur [] Lungs & Thorax: Bilateral breath sounds clear to auscultation [] Abdomen: Bowel sounds normal, soft, no masses, no pulsatile masses, incisions to abdomen appear intact, Steri-Strips intact, no surrounding signs of infection or bleeding, abdomen is soft and nondistended, tenderness with palpation noted to the incision site in the right upper quadrant. [] Skin: Warm, dry, no erythema, no rash. [] Back: Normal range of motion Extremities: No tenderness, no cyanosis, no clubbing, ROM intact, no edema. [] Neurologic: Alert and oriented X 3, normal motor function, normal sensory function, no focal deficits noted. [] Psychologic: Affect normal, judgement normal, mood normal. [] (TATUM MCLAUGHLIN APRN) Current Patient Data: Labs: Laboratory Tests Test 03/06/21 17:04 03/06/21 17:30 White Blood Count 5.0 x10^3/uL Red Blood Count 3.70 x10^6/uL Hemoglobin 11.3 g/dL Hematocrit 32.1 % Mean Corpuscular Volume 87 fL Mean Corpuscular Hemoglobin 30 pg Mean Corpuscular Hemoglobin Concent 35 g/dL Red Cell Distribution Width 15.6 % Platelet Count 291 x10^3/uL Neutrophils (%) (Auto) 63 % Lymphocytes (%) (Auto) 26 % Monocytes (%) (Auto) 7 % Eosinophils (%) (Auto) 3 % Basophils (%) (Auto) 1 % Neutrophils # (Auto) 3.1 x10^3uL Lymphocytes # (Auto) 1.3 x10^3/uL Monocytes # (Auto) 0.3 x10^3/uL Eosinophils # (Auto) 0.1 x10^3/uL Basophils # (Auto) 0.1 x10^3/uL Sodium Level 138 mmol/L Potassium Level 3.5 mmol/L Chloride Level 101 mmol/L Carbon Dioxide Level 27 mmol/L Anion Gap 10 Blood Urea Nitrogen 9 mg/dL Creatinine 0.8 mg/dL Estimated GFR (Cockcroft-Gault) 77.9 BUN/Creatinine Ratio 11 Glucose Level 136 mg/dL Calcium Level 9.5 mg/dL Total Bilirubin 0.4 mg/dL Aspartate Amino Transf (AST/SGOT) 52 U/L Alanine Aminotransferase (ALT/SGPT) 80 U/L Alkaline Phosphatase 184 U/L Total Protein 7.1 g/dL Albumin 3.7 g/dL Albumin/Globulin Ratio 1.1 Lipase 53 U/L Urine Collection Type Unknown Urine Color Yellow Urine Clarity Clear Urine pH 6.0 Urine Specific [place] 1.015 Urine Protein Neg Urine Glucose (UA) Neg mg/dL Urine Ketones (Stick) Neg mg/dL Urine Blood Neg Urine Nitrite Neg Urine Bilirubin Neg Urine Urobilinogen Dipstick 0.2 mg/dL Urine Leukocyte Esterase Neg Urine RBC Occ /HPF Urine WBC Occ /HPF Urine Squamous Epithelial Cells Mod /LPF Urine Bacteria 0 /HPF Current Medications Medications (Trade) Dose Ordered Sig/Jerrod Route PRN Reason Start Time Stop Time Status Last Admin Dose Admin Fentanyl Citrate (Fentanyl 2ml Vial) 50 mcg PRN Q15MIN PRN IV PAIN GREATER THAN 3/10 03/06/21 16:45 03/07/21 16:44 03/06/21 17:03 Sodium Chloride 1,000 ml @ 1,000 mls/hr Q1H IV 03/06/21 16:45 03/06/21 17:44 DC 03/06/21 17:03 Ondansetron HCl (Zofran) 4 mg 1X ONCE IVP 03/06/21 16:45 03/06/21 16:49 DC 03/06/21 17:03 Iohexol (Omnipaque 300 Mg/ml) 75 ml 1X ONCE IV 03/06/21 17:00 03/06/21 17:01 DC 03/06/21 17:05 Info (Do NOT chart on this entry -- for MONITORING) 1 each PRN DAILY PRN MC SEE COMMENTS 03/06/21 17:00 03/08/21 16:59 Vital Signs: Vital Signs Date Time Temp Pulse Resp B/P (MAP) Pulse Ox O2 Delivery O2 Flow Rate FiO2 03/06/21 16:42 98.2 87 24 143/100 98 (TATUM MCLAUGHLIN APRN) EKG: EKG: [] (TATUM MCLAUGHLIN APRN) Radiology/Procedures: Radiology/Procedures: []PROCEDURE: CT ABD PELV W/ IV CONTRST ONLY CT scan of the abdomen and pelvis with contrast 03/06/2021 CLINICAL HISTORY: Post cholecystectomy 2 weeks ago. Abdominal pain. TECHNIQUE: After the intravenous administration of 75 cc of Omnipaque 300 only, contiguous, 5 mm axial sections were obtained through the abdomen and pelvis. One or more of the following individualized dose reduction techniques were utilized for this study: 1. Automated exposure control. 2. Adjustment of the mA and/or kV according to patient size. 3. Use of iterative reconstruction technique. FINDINGS: Comparison study is dated 03/03/2021. This was performed at [facility]. Images through the lung bases demonstrate linear bands of subsegmental atelectasis involving both lower lobes, right greater than left. The liver parenchyma has a decreased attenuation consistent with fatty infiltration. The spleen, pancreas, adrenal glands and kidneys are within normal limits. The abdominal aorta tapers normally. Surgical clips are seen within the gallbladder fossa consistent with a cholecystectomy. No abnormal fluid collection is seen within the gallbladder fossa. No free fluid or free air is within abdomen. There is a small sliding hiatal hernia. There is no evidence of bowel obstruction. A moderate amount stool seen throughout the colon. The patient is post appendectomy. Images through the pelvis demonstrate the urinary bladder distended with urine. Tubal ligation clips are seen. No adnexal mass is noted. No free fluid is seen. The osseous structures are unchanged. IMPRESSION: No acute abnormality is seen. Electronically signed by: Nimesh Bowen MD (03/06/2021 5:56 PM) [id number] DICTATED AND SIGNED BY: NIMESH BOWEN MD DATE: 03/06/21 [id number] CC: LANA BRANDT; TATUM MCLAUGHLIN APRN ~MTH0 0 (TATUM MCLAUGHLIN APRN) Heart Score: C/O Chest Pain: No Risk Factors: Risk Factors: DM, Current or recent (<one month) smoker, HTN, HLP, family history of CAD, obesity. Risk Scores: Score 0 - 3: 2.5% MACE over next 6 weeks - Discharge Home Score 4 - 6: 20.3% MACE over next 6 weeks - Admit for Clinical Observation Score 7 - 10: 72.7% MACE over next 6 weeks - Early Invasive Strategies (TATUM MCLAUGHLIN APRN) Course & Med Decision Making: Course & Med Decision Making Pertinent Labs and Imaging studies reviewed. (See chart for details) [] Patient is a 45-year-old female being seen in the ER for post lap burke abdominal pain. Work-up in the ER consisted of blood work, urinalysis, CT scan of abdomen. Patient treated with fluids, nausea medication, pain medication. Patient was seen [facility] 3 days ago and received a prescription for hydrocodone. She has an appointment scheduled with Dr. Sherman who is a surgeon that performed her lap burke on Saturday. Patient is in no acute distress, her vital signs are stable with mild elevation in her blood pressure. CBC unremarkable. Patient has mild elevation in AST, ALT, alk phos. this is similar to the findings at [facility] [address] scan of abdomen is unremarkable and shows fatty liver and moderate amount of stool in colon. Patient advised to increase fluids. She can take MiraLAX as a stool softener. Patient advised to continue taking the pain medication as previously prescribed. She was also advised to follow-up with Dr. Sherman as previously scheduled. Her vital signs are stable. I discussed with patient all findings and diagnostic testing as well as the need to follow-up with PCP for further evaluation and treatment or return to the ER if any new or worsening symptoms. Strict return precautions were also discussed at length. Patient voiced understanding and agreement with the plan. Patient is hemodynamically stable at the time of disposition. (TATUM MCLAUGHLIN APRN) Dragon Disclaimer: Dragon Disclaimer: This electronic medical record was generated, in whole or in part, using a voice recognition dictation system. (TATUM MCLAUGHLIN APRN) Departure Departure: Impression: Primary Impression: Postoperative abdominal pain Disposition: HOME / SELF CARE / HOMELESS Condition: GOOD Referrals: LANA BRANDT (PCP) Patient Instructions: Constipation, Adult, Pain Relief Preoperatively and Postoperatively Additional Instructions: You were seen in the ER today for postoperative abdominal pain. Your blood work was unremarkable. Your CT scan of your abdomen showed a moderate amount of stool in your colon. Your physical exam was reassuring and your vital signs were stable. Continue taking your pain medication as previously prescribed. Increase your fluids at home. You may benefit from the use of MiraLAX at home to help with constipation due to narcotic pain medication. You have an appointment to follow-up with Dr. Sherman on Saturday, you can try to contact his office to get worked into the schedule sooner. Follow-up with your primary care provider tomorrow regarding your ER visit. If you develop worsening of your abdominal pain, intractable nausea or vomiting, blood in your stools or vomit, high fevers refractory to treatment, inability to eat or drink please return to the ER immediately. EMERGENCY DEPARTMENT GENERAL DISCHARGE INSTRUCTIONS Thank you for coming to [facility] (ED) today and trusting us with you care. We trust that you had a positivie experience in our Emergency Department. If you wish to speak to the department management, you may call the director at [phone]. YOUR FOLLOW UP INSTRUCTIONS ARE FOLLOWS: 1. Do you have a private Doctor? If you do not have a private doctor, please ask for a resource list of physicians or clinics that may be able to assist you with follow up care. 2. The Emergency Physician has interpreted your x-rays. The X-Ray specialist w ill also review them. If there is a change in the findings, you will be notified in 48 hours when at all possible. 3. A lab test or culture has been done, your results will be reviewed and you will be notified if you need a change in treatment. ADDITIONAL INSTRUCTIONS AND INFORMATION: 1. Your care today has been supervised by a physician who is specially trained in emergency care. Many problems require more than one evaluation for a complete diagnosis and treatment. We recommend that you schedule your follow up appointment as recommended to ensure complete treatment of you illness or injury. If you are unable to obtain follow up care and continue to have a problem, or if your condition worsens, we recommend that you return to the ED. 2. We are not able to safely determine your condition over the phone nor are we able to give sound medical advice over the phone. For these safety reasons, if you call for medical advice we will ask you to come to the ED for further evaluation. 3. If you have any questions regarding these discharge instructions please call the ED at [phone]. SAFETY INFORMATION: In the interest of safety, wellness, and injury prevention; we encourage you to wear your sealbelt, if you smoke; quite smoking, and we encourage family to use a protective helmet for bicycling and other sporting events that present an increased risk for head injury. IF YOUR SYMPTOMS WORSEN OR NEW SYMPTOMS DEVELOP, OR YOU HAVE CONCERNS ABOUT YOUR CONDITION; OR IF YOUR CONDITION WORSENS WHILE YOU ARE WAITING FOR YOUR FOLLOW UP APPOINTMENT; EITHER CONTACT YOUR PRIMARY CARE DOCTOR, THE PHYSICIAN WHOSE NAME AND NUMBER YOU WERE GIVEN, OR RETURN TO THE ED IMMEDIATELY. Attending Signature Attending Signature I have participated in the care of this patient and I have reviewed and agree with all pertinent clinical information above including history, exam, and recommendations. (SONNY KIMBALL MD) TATUM MCLAUGHLIN APRN Mar 06, 2021 17:02 SONNY KIMBALL MD Mar 08, 2021 07:11
[2021-03-06 17:25] LABS: BASO # 0.1 x10^3/uL (0.0-0.2); BASO % 1 % (0-3); EOS # 0.1 x10^3/uL (0.0-0.7); EOS % 3 % (0-3); HEMATOCRIT 32.1 % (36.0-47.0); HEMOGLOBIN 11.3 g/dL (12.0-15.5); LYMPH # 1.3 x10^3/uL (1.0-4.8); LYMPH % 26 % (24-48); MEAN CORPUSCULAR HEMOGLOBIN 30 pg (25-35); MEAN CORPUSCULAR HGB CONC 35 g/dL (31-37); MEAN CORPUSCULAR VOLUME 87 fL (79-100); MONO # 0.3 x10^3/uL (0.0-1.1); MONO % 7 % (0-9); NEUT # 3.1 x10^3uL (1.8-7.7); NEUT % 63 % (31-73); PLATELET COUNT 291 x10^3/uL (140-400); RED CELL DISTRIBUTION WIDTH 15.6 % (11.5-14.5)
[2021-03-06 17:35] LABS: CALCIUM 9.5 mg/dL (8.5-10.1); CREATININE 0.8 mg/dL (0.6-1.0); GFR 77.9; POTASSIUM 3.5 mmol/L (3.5-5.1)
[2021-03-06 17:45] LABS: ALBUMIN 3.7 g/dL (3.4-5.0); ALBUMIN/GLOBULIN RATIO 1.1 (1.0-1.7); TOTAL BILIRUBIN 0.4 mg/dL (0.2-1.0); TOTAL PROTEIN 7.1 g/dL (6.4-8.2)
--- NOTE | 2021-03-06 17:59 | RAD ---
CT scan of the abdomen and pelvis with contrast 03/06/2021 CLINICAL HISTORY: Post cholecystectomy 2 weeks ago. Abdominal pain. TECHNIQUE: After the intravenous administration of 75 cc of Omnipaque 300 only, contiguous, 5 mm axia l sections were obtained through the abdomen and pelvis. One or more of the following individualized dose reduction techniques were utilized for this study: 1. Automated exposure control. 2. Adjustment of the mA and/or kV according to patient size. 3. Use of iterative reconstruction technique. FINDINGS: Comparison study is dated 03/03/2021. This was performed at [facility]. Images through the lung bases demonstrate linear bands of subsegmental atelectasis involving both low er lobes, right greater than left. The liver parenchyma has a decreased attenuation consistent with fatty infiltration. The spleen, panc reas, adrenal glands and kidneys are within normal limits. The abdominal aorta tapers normally. Surgical clips are seen within the gallbladder fossa consistent with a cholecystectomy. No abnormal fluid collection is seen within the gallbladder fossa. No free fl uid or free air is within abdomen. There is a small sliding hiatal hernia. There is no evidence of presley wel obstruction. A moderate amount stool seen throughout the colon. The patient is post appendectomy. Images through the pelvis demonstrate the urinary bladder distended with urine. Tubal ligation clips are seen. No adnexal mass is noted. No free fluid is seen. The osseous structures are unchanged. IMPRESSION: No acute abnormality is seen. Electronically signed by: Nimesh Bowen MD (03/06/2021 5:56 PM) [id number]
[2021-03-06 18:00] LABS: BILIRUBIN,URINE NEG (NEG); CLARITY,URINE CLEAR; COLOR,URINE YELLOW; GLUCOSE,URINE NEG (NEG); NITRITE,URINE NEG (NEG); RBC,URINE OCC /HPF (0-2); UROBILINOGEN,URINE 0.2 mg/dL (0.2 mg/dL)
[2021-03-06 18:01] LABS: BACTERIA,URINE 0 /HPF (0-FEW); SQUAMOUS EPITHELIAL CELL,UR MOD /LPF; WBC,URINE OCC /HPF (0-4)
== END 2021-03-06 18:18 | disposition home or self-care (01) ==
LOC: ER 16:21
DX: G89.18 Other acute postprocedural pain (principal); R10.11 Right upper quadrant pain; R11.10 Vomiting, unspecified; K21.9 Gastro-esophageal reflux disease without esophagitis; E78.00 Pure hypercholesterolemia, unspecified; I10 Essential (primary) hypertension; Z90.49 Acquired absence of other specified parts of digestive tract; Z90.89 Acquired absence of other organs; Z98.51 Tubal ligation status; Z88.1 Allergy status to other antibiotic agents; Z88.6 Allergy status to analgesic agent
CPT/HCPCS: 36415; 74177; 80053; 81001; 83690; 85025; 96361; 96374; 96375; 99285; J2405; J3010; J7030; Q9967

== ENCOUNTER → 2021-05-12 | Outpatient (CLI) | payer OTHER ==
[~2021-05-12] MED LIST changes: -CYCL-331 PO; +CYCL10TA19 PO
--- NOTE | 2021-05-12 14:56 | RAD ---
Gastric Emptying Study 05/12/2021 Indication: Reason: nausea amd vomiting Procedure: Anterior and posterior projection static images are obtained over the stomach following or al administration of 2 mCi of 99 M technetium sulfur colloid in a solid meal (egg and toast). Time po ints include an immediate baseline, and 1, 2, 3, and 4 hours post ingestion. Findings: There is progressive emptying of the stomach on sequential images. Percentage retention at... One hour is 58% (normal 34.8-91%). Two hours 27% (normal 2.7-60%). Three hours 16% (normal 0.5-28%). Four hours 3% (normal 0-10%). Impression: Normal 4 hour protocol gastric emptying study. Consensus Recommendations for Gastric Emptying Scintigraphy: A Joint Report of the [place] [employer] Society and the Society of Nuclear Medicine: J. Nucl. Med. Technol. August 30 vol. 36 no. 1 44-54 Grading for severity of delayed GE based on the 4-h value: grade 1 (mild): 11?20% retention at 4 h grade 2 (moderate): 21?35% retention at 4 h grade 3 (severe): 36?50% retention at 4 h grade 4 (very severe): >50% retention at 4 h. Electronically signed by: Ke Knott MD (05/12/2021 2:54 PM) [id number]
== END ==
LOC: NM 07:36
PROVIDERS: ATTEND Family Medicine
DX: K31.84 Gastroparesis (principal)
CPT/HCPCS: 78264; A9541

== ENCOUNTER 2021-10-06 11:39 | Emergency (ER) | payer OTHER ==
[~2021-10-06] VITALS: Ht 154.9 cm; Wt 76.0 kg
--- NOTE | 2021-10-06 12:03 | PHYS DOC ---
Past History Past Medical History: Cancer, GERD, High Cholesterol, Hypertension, Other Additional Past Medical Histor: factor IV leiden Past Surgical History: Appendectomy, Cancer Surgery, Cholecystectomy, Tonsillectomy, Tubal ligation, Other Additional Past Surgical Histo: lumpectomy right breast, inguinal hernia repair x3 Smoking: Non-smoker Alcohol Use: None Drug Use: None General Adult EDM: Chief Complaint: HAND PROBLEM HPI: HPI: 45-year-old female presents with left thumb pain. 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 She had significant pain. She is still able to move it but it hurts. She has had a dislocated thumb in the past. 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 She does not have any numbness or altered sensation. Patient has no other complaints at this time. Review of Systems: Review of Systems: Constitutional: Denies fever or chills Eyes: Denies change in visual acuity HENT: Denies nasal congestion or sore throat Respiratory: Denies cough or shortness of breath Cardiovascular: Denies chest pain or edema GI: Denies abdominal pain, nausea, vomiting, bloody stools or diarrhea : Denies dysuria Musculoskeletal: Left thumb pain Integument: Denies rash Neurologic: Denies headache, focal weakness or sensory changes Endocrine: Denies polyuria or polydipsia Lymphatic: Denies swollen glands Psychiatric: Denies depression or anxiety Allergies: Allergies: Allergies Coded Allergies Type Severity Reaction Last Updated Verified clindamycin Allergy Severe 12/29/20 Yes doxycycline Allergy Intermediate VOMITING 12/29/20 No erythromycin base Allergy Unknown 12/29/20 Yes ibuprofen Allergy Unknown 12/29/20 Yes Physical Exam: PE: Constitutional: Well developed, well nourished, no acute distress, non-toxic appearance. [] HENT: Normocephalic, atraumatic, bilateral external ears normal, oropharynx moist, no oral exudates, nose normal. [] Eyes: PERRLA, EOMI, conjunctiva normal, no discharge. [] Neck: Normal range of motion, no tenderness, supple, no stridor. [] Cardiovascular: Heart rate regular rhythm, no murmur [] Lungs & Thorax: Bilateral breath sounds clear to auscultation [] Abdomen: Bowel sounds normal, soft, no tenderness, no masses, no pulsatile masses. [] Skin: Warm, dry, no erythema, no rash. [] Back: No tenderness, no CVA tenderness. [] Extremities: Left thumb tender to palpation at the base, partially abducted and in opposition [] Neurologic: Alert and oriented X 3, normal motor function, normal sensory function, no focal deficits noted. [] Psychologic: Affect normal, judgement normal, mood normal. [] EKG: EKG: [] Radiology/Procedures: Radiology/Procedures: [] Impressions: EXAM: PA view left hand, 3 views left thumb DATE: 10/06/2021 12:05 PM INDICATION: Reason: possible dislocated thumb, HYPEREXTENDED / Spl. Instructions: / History: . COMPARISON: No Prior FINDINGS: No acute fracture or dislocation. Chronic deformity base of the proximal phalanx thumb a represent old fracture. Joint spaces are grossly preserved. IMPRESSION: 1. No acute fracture or dislocation. 2. Thumb proximal phalanx deformity likely from old fracture. Electronically signed by: Josue Bangura MD (10/06/2021 12:37 PM) [id number] DICTATED AND SIGNED BY: JOSUE BANGURA MD DATE: 10/06/21 1236 CC: MARIE LOVE DO; KRISTA PEGUERO PA ~ Heart Score: C/O Chest Pain: N/A Risk Factors: Risk Factors: DM, Current or recent (<one month) smoker, HTN, HLP, family h istory of CAD, obesity. Risk Scores: Score 0 - 3: 2.5% MACE over next 6 weeks - Discharge Home Score 4 - 6: 20.3% MACE over next 6 weeks - Admit for Clinical Observation Score 7 - 10: 72.7% MACE over next 6 weeks - Early Invasive Strategies Course & Med Decision Making: Course & Med Decision Making Pertinent Labs and Imaging studies reviewed. (See chart for details) The patient's thumb x-ray is negative for acute findings. She seems to have a thumbs sprain. We will give her a thumb spica splint for comfort. She can take ibuprofen continue to ice it. She is stable for discharge at this time. [] Dragon Disclaimer: Dragon Disclaimer: This electronic medical record was generated, in whole or in part, using a voice recognition dictation system. Departure Departure: Impression: Primary Impression: Sprain of hand, thumb, left Disposition: 01 HOME / SELF CARE / HOMELESS Condition: STABLE Referrals: KRISTA PEGUERO (PCP) Patient Instructions: Thumb Sprain MARIE LOVE DO Oct 06, 2021 12:03
--- NOTE | 2021-10-06 12:40 | RAD ---
EXAM: PA view left hand, 3 views left thumb DATE: 10/06/2021 12:05 PM INDICATION: Reason: possible dislocated thumb, HYPEREXTENDED / Spl. Instructions: / History: . COMPARISON: No Prior FINDINGS: No acute fracture or dislocation. Chronic deformity base of the proximal phalanx thumb a represent ol d fracture. Joint spaces are grossly preserved. IMPRESSION: 1. No acute fracture or dislocation. 2. Thumb proximal phalanx deformity likely from old fracture. Electronically signed by: Josue Bangura MD (10/06/2021 12:37 PM) [id number]
== END 2021-10-06 13:20 | disposition home or self-care (01) ==
LOC: ER 11:39
DX: S63.602A Unspecified sprain of left thumb, initial encounter (principal); K21.9 Gastro-esophageal reflux disease without esophagitis; E78.00 Pure hypercholesterolemia, unspecified; I10 Essential (primary) hypertension; Z88.1 Allergy status to other antibiotic agents; Z88.6 Allergy status to analgesic agent; W22.8XXA Striking against or struck by other objects, initial encounter; Y93.89 Activity, other specified; Y92.89 Other specified places as the place of occurrence of the external cause; Y99.8 Other external cause status
CPT/HCPCS: 29125; 73140; 99283